=== PATIENT | male | born 1955 | race Asian ===

== ENCOUNTER 2016-08-03 12:12 | Inpatient (IN) | payer OTHER ==
[2016-08-03 12:24] VITALS: BMI 18.5
--- NOTE | 2016-08-03 12:36 | PDOC ---
History of Present Illness - General History Source: Patient Exam Limitations: No Limitations - History of Present Illness Initial Comments: 08/03/16 12:35 CHIEF COMPLAINT: Abdominal pain HISTORY OF PRESENT ILLNESS: This is a 61 year old male with a history of HTN, HLD, and NIDDM who presents complaining of one day of abdominal pain, distention , and constipation (he reports that he had a normal bowel movement on Wednesday) . He denies history of malignancy or abdominal surgeries. He has not had fevers/ chills, vomiting, dysuria, or any other symptoms. The patient denies regular EtOH use, but notes that he was drinking yesterday prior to onset of symptoms. PCP is Dr. Melani Guerrero V/s on arrival are notable for BP 183/93. REVIEW OF SYSTEMS: GENERAL/CONSTITUTIONAL: No fever or chills. No weakness. No weight change. HEAD, EYES, EARS, NOSE AND THROAT: No change in vision. No ear pain or discharge. No sore throat. CARDIOVASCULAR: No chest pain or palpitations. RESPIRATORY: No cough, wheezing, or shortness of breath. GASTROINTESTINAL: See HPI. GENITOURINARY: No dysuria, frequency, or change in urination. MUSCULOSKELETAL: No joint or muscle swelling or pain. No neck or back pain. SKIN: No rash or easy bruising. NEUROLOGIC: No headache, vertigo, loss of consciousness, or loss of sensation. PSYCHIATRIC: No depression or anxiety. ENDOCRINE: No increased thirst. No abnormal weight change. HEMATOLOGIC/LYMPHATIC: No anemia, easy bleeding, or history of blood clots. ALLERGIC/IMMUNOLOGIC: No hives or skin allergy. No latex allergy. PHYSICAL EXAM: GENERAL: The patient is awake, alert, and fully oriented, in no acute distress. HEAD: Normal with no signs of trauma. ENT: Pupils equal, round and reactive to light, extraocular movements intact, sclera anicteric, conjunctiva clear. Neck supple. LUNGS: Tachypneic. Clear to auscultation bilaterally. Normal excursion. No respiratory distress or use of accessory muscles. CV: RRR, S1/S2, no MRG. Cap refill < 2 sec. ABDOMEN: Distended, diffusely tender, hypoactive bowel sounds. EXTREMITIES: Normal range of motion, no edema. NEUROLOGICAL: Normal speech, normal gait. CN II-XII grossly intact. PSYCH: Normal mood, normal affect. SKIN: Warm, dry, normal turgor, mild jaundice. <Patricia Cordon - Last Filed: 08/03/16 18:54> <Zack Blackmon - Last Filed: 08/03/16 20:56> - General Chief Complaint: Pain Stated Complaint: ABD PAIN Time Seen by Provider: 08/03/16 12:34 Past History - Past Medical History Anemia: No Asthma: No Cancer: No Cardiac Disorders: Yes CVA: No COPD: Yes CHF: No Dementia: No Diabetes: Yes GI Disorders: No Disorders: No HTN: Yes Hypercholesterolemia: Yes Liver Disease: No Seizures: No Thyroid Disease: No - Surgical History Abdominal Surgery: No Appendectomy: No Cardiac Surgery: No Cholecystectomy: No Lung Surgery: No Neurologic Surgery: No Orthopedic Surgery: No - Immunization History Immunization Up to Date: Yes - Psycho/Social/Smoking Cessation Hx Anxiety: No Suicidal Ideation: No Smoking Status: No Smoking History: Current every day smoker Have you smoked in the past 12 months: Yes Number of Cigarettes Smoked Daily: 5 Information on smoking cessation initiated: Yes 'Breaking Loose' booklet given: 08/03/16 Hx Alcohol Use: No Drug/Substance Use Hx: No Substance Use Type: None Hx Substance Use Treatment: No <Patricia Cordon - Last Filed: 08/03/16 18:54> <Zack Blackmon - Last Filed: 08/03/16 20:56> - Past Medical History Allergies/Adverse Reactions: Allergies Allergy/AdvReac Type Severity Reaction Status Date / Time No Known Allergies Allergy Verified 08/03/16 12:20 Home Medications: Ambulatory Orders Simvastatin [Zocor -] 20 mg PO HS 01/18/12 Losartan/Hydrochlorothiazide [Losartan-Hctz 50-12.5 mg Tab] 1 each PO DAILY 02/10 Aspirin [ASA -] 81 mg PO DAILY #0 tab.chew 09/10/12 *Physical Exam - Vital Signs Last Vital Signs Temp Pulse Resp BP Pulse Ox 97.9 F 67 18 183/93 100 08/03/16 12:20 08/03/16 12:20 08/03/16 12:20 08/03/16 12:20 08/03/16 12:20 <Patricia Cordon - Last Filed: 08/03/16 18:54> - Vital Signs Last Vital Signs Temp Pulse Resp BP Pulse Ox 99.8 F H 84 18 148/83 96 08/03/16 18:03 08/03/16 18:03 08/03/16 18:03 08/03/16 18:03 08/03/16 18:03 <Zack Blackmon - Last Filed: 08/03/16 20:56> ED Treatment Course - LABORATORY CBC & Chemistry Diagram: 08/03/16 13:18 08/03/16 13:12 <Patricia Cordon - Last Filed: 08/03/16 18:54> - LABORATORY CBC & Chemistry Diagram: 08/03/16 13:18 08/03/16 13:12 - ADDITIONAL ORDERS Additional order review: Laboratory Results 08/03/16 08/03/16 16:20 13:12 Sodium 143 Potassium 3.9 Chloride 105 Carbon Dioxide 24 Anion Gap 14 BUN 17 Creatinine 0.7 Creat Clearance w eGFR > 60 Random Glucose 137 H D Calcium 9.5 Total Bilirubin 0.4 AST 24 D ALT 37 D Alkaline Phosphatase 56 Total Protein 7.9 Albumin 4.4 Lipase 99 Urine Color Yellow Urine Appearance Clear Urine pH 5.0 Urine Protein 2+ H Urine Glucose (UA) Negative Urine Ketones Trace H Urine Blood Negative Urine Nitrite Negative Urine Bilirubin Negative Urine Urobilinogen Negative Ur Leukocyte Esterase Negative Urine RBC 3 Urine WBC 1 Urine Mucus Rare 08/03/16 13:18 RBC 5.12 MCV 97.5 H MCHC 33.2 RDW 14.4 MPV 9.8 Neutrophils % 89.9 H D Lymphocytes % 7.0 L D Monocytes % 2.3 L Eosinophils % 0.2 D Basophils % 0.6 - Medications Given in the ED: ED Medications Discontinued Medications Generic Name Dose Route Start Last Admin Trade Name Jarrodq PRN Reason Stop Dose Admin Morphine Sulfate 4 mg 08/03/16 13:00 08/03/16 13:16 Morphine Injection - IVPUSH 08/03/16 13:01 4 mg ONCE ONE Administration Morphine Sulfate 4 mg 08/03/16 14:50 08/03/16 15:15 Morphine Injection - IVPUSH 08/03/16 14:51 4 mg ONCE ONE Administration Ondansetron HCl 4 mg 08/03/16 13:00 08/03/16 13:16 Zofran Injection IVPUSH 08/03/16 13:01 4 mg ONCE ONE Administration <Zack Blackmon - Last Filed: 08/03/16 20:56> Medical Decision Making - Medical Decision Making 08/03/16 13:03 A/P: 61 year old male with abdominal pain, distention, and constipation. 1. Abdominal labs 2. CXR and Abd flat/upright 3. Morphine 4mg IVP for pain and Zofran 4mg IVP for nausea 08/03/16 15:09 -WBC 16 with 89.9% neutrophils -Chemistry/LFTs unremarkable 08/03/16 16:45 -AXR: Nonobstructive bowel gas pattern; moderate fecal retention suggestive of constipation -Patient remains distended, complains of severe pain -Will obtain CTAP <Patricia Cordon - Last Filed: 08/03/16 18:54> - Medical Decision Making 08/03/16 20:[address] Greenwood- Would like Dr. Robles to chose surgeon. Start patient on Flagyl and Rocephin. Spoke with Dr. Robles for admission- Consult Surgery. Admit patient to Tele. IV Ativan due to Alcoholism. Spoke with Dr. Oleary (surgery). Keep patient NPO, IVF and IV Abx. <Zack Blackmon - Last Filed: 08/03/16 20:56> *DC/Admit/Observation/Transfer <Patricia Cordon - Last Filed: 08/03/16 18:54> - Discharge Dispostion Admit: Yes <Zack Blackmon - Last Filed: 08/03/16 20:56> Diagnosis at time of Disposition: Perforated bowel Alcohol dependence Qualifiers: Substance use status: uncomplicated Qualified Code(s): F10.20 - Alcohol dependence, uncomplicated - Discharge Dispostion Condition at time of disposition: Fair
[2016-08-03] MEDS ORDERED: ONDANSETRON 4 MG/2 ML VIAL IVPUSH ONE (13:00)
[2016-08-03] MEDS ORDERED: morphine CARPU-JECT 4 MG/1 ML DISP.SYRIN IVPUSH ONE ×2 (13:00→14:50)
[2016-08-03] MEDS ORDERED: ONDANSETRON 4 MG/2 ML VIAL ONE (13:03)
[2016-08-03] MEDS ORDERED: morphine CARPU-JECT 4 MG/1 ML DISP.SYRIN ONE ×2 (13:03→15:19)
[2016-08-03 13:21] LABS: BASOPHIL 0.6 % (0-2.0); EOSINOPHIL 0.2 % (0-4.5); MCH 32.4 pg (25.7-33.7); MCHC 33.2 g/dl (32.0-35.9); MEAN CELL VOLUME 97.5 fl (80-96); MEAN PLT VOLUME 9.8 fl (7.5-11.1); NEUTROPHILS 89.9 % (42.8-82.8); PLATELET COUNT 162 K/MM3 (134-434); RDW 14.4 % (11.9-15.9)
[2016-08-03 13:45] LABS: ALBUMIN 4.4 g/dl (3.4-5.0); ANION GAP 14 (8-16); CALCIUM 9.5 mg/dL (8.5-10.1); CO2 24 mmol/L (21-32); COCKROFT - GAULT 82; CREATININE 0.7 mg/dL (0.7-1.3); GLUCOSE,RANDOM 137 mg/dL (74-106); SGOT/AST 24 U/L (15-37); SGPT/ALT 37 U/L (12-78)
[2016-08-03 13:47] LABS: ALK PHOS 56 U/L (45-117); BILIRUBIN,TOTAL 0.4 mg/dL (0.2-1.0); TOT PROT 7.9 g/dl (6.4-8.2)
[2016-08-03 16:36] LABS: URINE APPEARANCE CLEAR; URINE BILIRUBIN NEGATIVE (NEGATIVE); URINE BLOOD NEGATIVE (NEGATIVE); URINE COLOR YELLOW; URINE GLUCOSE (UA) NEGATIVE (NEGATIVE); URINE KETONE TRACE (NEGATIVE); URINE LEUK ESTERASE NEGATIVE (NEGATIVE); URINE NITRITE NEGATIVE (NEGATIVE); URINE UROBILINOGEN NEGATIVE E.U./dl (0.2-1.0)
[2016-08-03 17:30] LABS: URINE PROTEIN 2+ (NEGATIVE)
[2016-08-03 17:34] LABS: URINE MUCUS RARE; URINE RBC 3 /hpf (0-3); URINE WBC 1 /hpf (3-5)
--- NOTE | 2016-08-03 19:39 | PDOC ---
*Physical Exam - Vital Signs Last Vital Signs Temp Pulse Resp BP Pulse Ox 99.8 F H 84 18 148/83 96 08/03/16 18:03 08/03/16 18:03 08/03/16 18:03 08/03/16 18:03 08/03/16 18:03 ED Treatment Course - LABORATORY CBC & Chemistry Diagram: 08/07/16 05:00 08/07/16 05:00 - ADDITIONAL ORDERS Additional order review: Laboratory Results 08/03/16 08/03/16 16:20 13:12 Sodium 143 Potassium 3.9 Chloride 105 Carbon Dioxide 24 Anion Gap 14 BUN 17 Creatinine 0.7 Creat Clearance w eGFR > 60 Random Glucose 137 H D Calcium 9.5 Total Bilirubin 0.4 AST 24 D ALT 37 D Alkaline Phosphatase 56 Total Protein 7.9 Albumin 4.4 Lipase 99 Urine Color Yellow Urine Appearance Clear Urine pH 5.0 Urine Protein 2+ H Urine Glucose (UA) Negative Urine Ketones Trace H Urine Blood Negative Urine Nitrite Negative Urine Bilirubin Negative Urine Urobilinogen Negative Ur Leukocyte Esterase Negative Urine RBC 3 Urine WBC 1 Urine Mucus Rare 08/03/16 13:18 RBC 5.12 MCV 97.5 H MCHC 33.2 RDW 14.4 MPV 9.8 Neutrophils % 89.9 H D Lymphocytes % 7.0 L D Monocytes % 2.3 L Eosinophils % 0.2 D Basophils % 0.6 - Medications Given in the ED: ED Medications Discontinued Medications Generic Name Dose Route Start Last Admin Trade Name Freq PRN Reason Stop Dose Admin Morphine Sulfate 4 mg 08/03/16 13:00 08/03/16 13:16 Morphine Injection - IVPUSH 08/03/16 13:01 4 mg ONCE ONE Administration Morphine Sulfate 4 mg 08/03/16 14:50 08/03/16 15:15 Morphine Injection - IVPUSH 08/03/16 14:51 4 mg ONCE ONE Administration Ondansetron HCl 4 mg 08/03/16 13:00 08/03/16 13:16 Zofran Injection IVPUSH 08/03/16 13:01 4 mg ONCE ONE Administration Medical Decision Making - Medical Decision Making 08/03/16 19:39 Pt seen by the Advanced Practice Provider under my direct supervision Ancillary studies reviewed I agree with plan as outlined by the Advanced Practice Provider SAIEG Cordon *DC/Admit/Observation/Transfer Diagnosis at time of Disposition: Alcohol dependence, Perforated bowel - Discharge Dispostion Condition at time of disposition: Fair
[2016-08-03] MEDS ORDERED: METRONIDAZOLE 500 MG PREMIXED 100 ML IVPB ONE ×2 (20:34→21:03)
[2016-08-03] MEDS ORDERED: cefTRIAXone 2 GM/100 ML BAG (PRE-DOCKED) IVPB ONE (20:44)
[2016-08-03] MEDS ORDERED: CEFTRIAXONE 100 ML IVPB ONE (21:03)
--- NOTE | 2016-08-03 21:42 | CONSULT ---
Consult Consult Specialty:: Surgery Referred by:: Cesar Polo Reason for Consultation:: Acute diverticulitis with abscess and perforation. - History of Present Illness Chief Complaint: Abdominal pain x 1 day History of Present Illness: Abdominal pain since yesterday, after a bowel movement., on the left side of his abdomen. No nausea, no vomiting. - History Source History Provided By: Patient - Past Medical History Cardio/Vascular: Yes: HTN Endocrine: Yes: Diabetes Mellitus - Past Surgical History Past Surgical History: Yes: None - Alcohol/Substance Use Hx Alcohol Use: No - Smoking History Smoking history: Current every day smoker Have you smoked in the past 12 months: Yes Aproximately how many cigarettes per day: 5 Home Medications - Allergies Allergies/Adverse Reactions: Allergies Allergy/AdvReac Type Severity Reaction Status Date / Time No Known Allergies Allergy Verified 08/03/16 12:20 - Home Medications Home Medications: Ambulatory Orders Simvastatin [Zocor -] 20 mg PO HS 01/18/12 Losartan/Hydrochlorothiazide [Losartan-Hctz 50-12.5 mg Tab] 1 each PO DAILY 02/10 Aspirin [ASA -] 81 mg PO DAILY #0 tab.chew 09/10/12 Physical Exam Vital Signs: Vital Signs Temperature 99.8 F H 08/03/16 18:03 Pulse Rate 84 08/03/16 18:03 Respiratory Rate 18 08/03/16 18:03 Blood Pressure 148/83 08/03/16 18:03 O2 Sat by Pulse Oximetry (%) 96 08/03/16 18:03 Gastrointestinal: Yes: Tenderness (Tender in left upper quadrant of abdomen, with local guarding) Labs: CBC, BMP 08/03/16 13:18 08/03/16 13:12 Imaging - Results Cat Scan: Report Reviewed, Image Reviewed Problem List - Problems (1) Diverticulitis of intestine with perforation and abscess Code(s): K57.80 - DVTRCLI OF INTEST, PART UNSP, W PERF AND ABSCESS W/O BLEED Qualifiers: Diverticulitis site: large intestine Diverticulitis bleeding: without bleeding Qualified Code(s): K57.20 - Diverticulitis of large intestine with perforation and abscess without bleeding (2) Diabetes 1.5, managed as type 2 Code(s): E10.9 - TYPE 1 DIABETES MELLITUS WITHOUT COMPLICATIONS (3) Hypertension Code(s): I10 - ESSENTIAL (PRIMARY) HYPERTENSION Assessment/Plan Acute diverticulitis with abscess and microperforation. Hypertension. Antibiotics, NPO, Hydrate , IV fluids. Follow up . If no response will need laparotomy and possible bowel resection with colostomy. Patient is explained.
[2016-08-03] MEDS ORDERED: DEXTROSE 5%-LACTATED RINGERS 1,000 ML IV SCH (21:45)
[2016-08-03] MEDS ORDERED: LORAZEPAM CARPU-JECT 2 MG/ML DISP.SYRIN IVPUSH PRN (21:48)
[2016-08-03] MEDS ORDERED: morphine CARPU-JECT 2 MG/1 ML DISP.SYRIN ONE (22:09)
[2016-08-03] MEDS: morphine CARPU-JECT 2 MG/1 ML DISP.SYRIN IVPUSH PRN (22:23)
[2016-08-04] MEDS ORDERED: METRONIDAZOLE 500 MG PREMIXED 100 ML IVPB ONE (08:12)
[2016-08-04] MEDS ORDERED: CEFTRIAXONE 1 GM in DEXTROSE 5%-WATER - 100 ML IVPB ONE (08:13)
[2016-08-04] MEDS ORDERED: morphine CARPU-JECT 2 MG/1 ML DISP.SYRIN ONE (08:20)
[2016-08-04] MEDS ORDERED: CEFTRIAXONE 50 ML ONE (08:20)
[2016-08-04] MEDS: morphine CARPU-JECT 2 MG/1 ML DISP.SYRIN IVPUSH PRN (08:30)
[2016-08-04 08:43] LABS: MCH 32.2 pg (25.7-33.7); MCHC 33.7 g/dl (32.0-35.9); MEAN CELL VOLUME 95.6 fl (80-96); MEAN PLT VOLUME 9.7 fl (7.5-11.1); PLATELET COUNT 150 K/MM3 (134-434); RDW 13.9 % (11.9-15.9); WHITE BLOOD COUNT 18.2 K/mm3 (4.0-10.0)
[2016-08-04 09:06] LABS: ALBUMIN 3.4 g/dl (3.4-5.0); ALK PHOS 44 U/L (45-117); ANION GAP 9 (8-16); CALCIUM 8.6 mg/dL (8.5-10.1); CO2 28 mmol/L (21-32); COCKROFT - GAULT 115; CREATININE 0.5 mg/dL (0.7-1.3); GLUCOSE,RANDOM 144 mg/dL (74-106); SGOT/AST 14 U/L (15-37); SGPT/ALT 24 U/L (12-78); TOT PROT 6.5 g/dl (6.4-8.2)
--- NOTE | 2016-08-04 09:50 | HP ---
Admitting History and Physical - Primary Care Physician PCP: Melani Guerrero - Admission Chief Complaint: abd pain History of Present Illness: ER HISTORY - History of Present Illness Initial Comments: 08/03/16 12:35 CHIEF COMPLAINT: Abdominal pain HISTORY OF PRESENT ILLNESS: This is a 61 year old male with a history of HTN, HLD, and NIDDM who presents complaining of one day of abdominal pain, distention , and constipation (he reports that he had a normal bowel movement on Wednesday) . He denies history of malignancy or abdominal surgeries. He has not had fevers/ chills, vomiting, dysuria, or any other symptoms. The patient denies regular EtOH use, but notes that he was drinking yesterday prior to onset of symptoms. PCP is Dr. Melani Guerrero V/s on arrival are notable for BP 183/93. Pt examined by me in ER Pt is NOT an alcoholic- he drank a glass of liquor on Wednesday evening watching a basketball game, felt sudden abdominal pain Wednesday morning when he was having a BM. He has a very small amount of stool- no bm after that. He c/o severe abdominal pain around lower abdomen. Nauseous. No fever. Never had similar pain before. Colonoscopy was many years ago - was going to get one scheduled in August with Dr Greenwood. History Source: Patient Limitations to Obtaining History: No Limitations - Past Medical History Cardiovascular: Yes: HTN, Hyperlipdemia - Smoking History Smoking history: Current every day smoker Have you smoked in the past 12 months: Yes Aproximately how many cigarettes per day: 5 - Alcohol/Substance Use Hx Alcohol Use: No - Social History Usual Living Arrangement: Yes: With Spouse ADL: Independent History of Recent Travel: No Home Medications - Allergies Allergies/Adverse Reactions: Allergies Allergy/AdvReac Type Severity Reaction Status Date / Time No Known Allergies Allergy Verified 08/03/16 12:20 - Home Medications Home Medications: Ambulatory Orders Simvastatin [Zocor -] 20 mg PO HS 01/18/12 Losartan/Hydrochlorothiazide [Losartan-Hctz 50-12.5 mg Tab] 1 each PO DAILY 02/10 Aspirin [ASA -] 81 mg PO DAILY #0 tab.chew 09/10/12 Review of Systems - Review of Systems Constitutional: denies: Chills, Fever Gastrointestinal: reports: Abdominal Pain, Constipation, Nausea. denies: Diarrhea, Vomiting, Vomiting Blood Physical Examination Vital Signs: Vital Signs Temperature 98.6 F 08/04/16 08:00 Pulse Rate 81 08/04/16 08:06 Respiratory Rate 18 08/04/16 08:06 Blood Pressure 113/50 08/04/16 08:06 O2 Sat by Pulse Oximetry (%) 97 08/04/16 08:06 Constitutional: Yes: Moderate Distress Cardiovascular: Yes: Regular Rate and Rhythm Respiratory: Yes: CTA Bilaterally Gastrointestinal: Yes: Distention, Tenderness (left quadrant), Other (guarding) . No: Normal Bowel Sounds, Soft Edema: No ...Motor Strength: WNL Psychiatric: Yes: Alert, Oriented Labs: CBC, BMP 08/04/16 08:20 08/04/16 08:20 Imaging - Results Chest X-ray: Image Reviewed (clear) Cat Scan: Report Reviewed EKG: Pending Problem List - Problems (1) Diverticulitis of intestine with perforation and abscess Code(s): K57.80 - DVTRCLI OF INTEST, PART UNSP, W PERF AND ABSCESS W/O BLEED Qualifiers: Diverticulitis site: large intestine Diverticulitis bleeding: without bleeding Qualified Code(s): K57.20 - Diverticulitis of large intestine with perforation and abscess without bleeding (2) Hypertension Code(s): I10 - ESSENTIAL (PRIMARY) HYPERTENSION (3) Smoker Code(s): F17.200 - NICOTINE DEPENDENCE, UNSPECIFIED, UNCOMPLICATED Assessment/Plan PLAN Keep NPO Repeat FUA Check EKG IV fluids IV antibiotics spoke with DR Oleary- surgeon will treat with antibiotics pain control, give increased dose of Morphine Hold off surgery for now ID eval with regards to antibiotics DVT prophylaxis-- Heparin sc GI prophylaxes-- Protonix Spoke with nurse in ER Time spent 30 min
[2016-08-04] MEDS ORDERED: ONDANSETRON 4 MG/2 ML VIAL IVPB PRN (10:06)
[2016-08-04] MEDS ORDERED: morphine CARPU-JECT 4 MG/1 ML DISP.SYRIN IVPUSH PRN (10:06)
[2016-08-04] MEDS ORDERED: IMIPENEM/CILASTATIN SODIUM 500 MG in SODIUM CHLORIDE 100 ML IVPB SCH (10:15)
[2016-08-04] MEDS ORDERED: morphine CARPU-JECT 4 MG/1 ML DISP.SYRIN IVPUSH ONE (10:17)
[2016-08-04] MEDS ORDERED: PANTOPRAZOLE SODIUM 40 MG VIAL ONE (10:21)
[2016-08-04] MEDS: PANTOPRAZOLE SODIUM 100 ML IVPB SCH (10:28)
[2016-08-04] MEDS ORDERED: IMIPENEM/CILASTATIN SODIUM 500 MG in SODIUM CHLORIDE 100 ML IVPB ONE (10:30)
[2016-08-04] MEDS: D5-1/2NS+10 MEQ KCL - 1,000 ML IV SCH (10:51)
[2016-08-04] MEDS: HYDROmorphone HCL CARPU-JECT 1 MG/1 ML DISP.SYRIN IVPB PRN ×2 (11:26→17:42)
--- NOTE | 2016-08-04 13:44 | PN ---
Progress Note (short form) - Note Progress Note: ID consult dictated imp/reccd diverticulitis with microperforation/possible abscess will treat with zosyn and flagyl no history of resistant organisms f/u cultures f/u with surgery d/w PMD Problem List - Problems (1) Diverticulitis of intestine with perforation and abscess Code(s): K57.80 - DVTRCLI OF INTEST, PART UNSP, W PERF AND ABSCESS W/O BLEED Qualifiers: Diverticulitis site: large intestine Diverticulitis bleeding: without bleeding Qualified Code(s): K57.20 - Diverticulitis of large intestine with perforation and abscess without bleeding
--- NOTE | 2016-08-04 15:34 | CON.GI ---
Consult Consult Specialty:: gastroenterology Reason for Consultation:: diverticular abscess - History of Present Illness History of Present Illness: 61 y/o with PMH of alcohol abuse was doing well until yesterday when he was awakenned by llq pain and constipation, no rectal bleeding and no fever, no nausea and vomiting. Today continue to have llq pain - Past Medical History Cardio/Vascular: Yes: HTN, Hyperlipdemia Endocrine: Yes: Diabetes Mellitus - Past Surgical History Past Surgical History: Yes: None - Alcohol/Substance Use Hx Alcohol Use: No - Smoking History Smoking history: Current every day smoker Have you smoked in the past 12 months: Yes Aproximately how many cigarettes per day: 5 - Social History ADL: Independent History of Recent Travel: No Home Medications - Allergies Allergies/Adverse Reactions: Allergies Allergy/AdvReac Type Severity Reaction Status Date / Time No Known Allergies Allergy Verified 08/03/16 12:20 - Home Medications Home Medications: Ambulatory Orders Simvastatin [Zocor -] 20 mg PO HS 01/18/12 Losartan/Hydrochlorothiazide [Losartan-Hctz 50-12.5 mg Tab] 1 each PO DAILY 02/10 Aspirin [ASA -] 81 mg PO DAILY #0 tab.chew 09/10/12 Physical Exam-GI Vital Signs: Vital Signs Temperature 98.3 F 08/04/16 11:20 Pulse Rate 95 H 08/04/16 13:16 Respiratory Rate 17 08/04/16 13:16 Blood Pressure 156/74 08/04/16 13:16 O2 Sat by Pulse Oximetry (%) 95 08/04/16 13:16 Constitutional: Yes: Well Nourished, Poor Hygeine HENT: Yes: Atraumatic Neck: Yes: Supple Cardiovascular: Yes: Regular Rate and Rhythm Respiratory: Yes: CTA Bilaterally ...Palpate: Yes: Soft, Tenderness (--LLq). No: Firm/Rigid, Guarding, Hepatomegaly, Mass Labs: CBC, BMP 08/04/16 08:20 08/04/16 08:20 CMP Sodium 139 mmol/L (136-145) 08/04/16 08:20 Potassium 3.8 mmol/L (3.5-5.1) 08/04/16 08:20 Chloride 102 mmol/L (98-107) 08/04/16 08:20 Carbon Dioxide 28 mmol/L (21-32) 08/04/16 08:20 Anion Gap 9 (8-16) 08/04/16 08:20 BUN 11 mg/dL (7-18) D 08/04/16 08:20 Creatinine 0.5 mg/dL (0.7-1.3) L D 08/04/16 08:20 Creat Clearance w eGFR > 60 (>60) 08/04/16 08:20 Random Glucose 144 mg/dL (74-106) H 08/04/16 08:20 Calcium 8.6 mg/dL (8.5-10.1) 08/04/16 08:20 Total Bilirubin 1.0 mg/dL (0.2-1.0) D 08/04/16 08:20 AST 14 U/L (15-37) L D 08/04/16 08:20 ALT 24 U/L (12-78) D 08/04/16 08:20 Alkaline Phosphatase 44 U/L (45-117) L D 08/04/16 08:20 Total Protein 6.5 g/dl (6.4-8.2) 08/04/16 08:20 Albumin 3.4 g/dl (3.4-5.0) D 08/04/16 08:20 Lipase 99 U/L (73-393) 08/03/16 13:12 Problem List - Problems (1) Diverticulitis of intestine with perforation and abscess Assessment/Plan: R> interventional radiology consult with Dr Min IV hydration IV antibiotics Code(s): K57.80 - DVTRCLI OF INTEST, PART UNSP, W PERF AND ABSCESS W/O BLEED Qualifiers: Diverticulitis site: large intestine Diverticulitis bleeding: without bleeding Qualified Code(s): K57.20 - Diverticulitis of large intestine with perforation and abscess without bleeding
[2016-08-04] MEDS ORDERED: HYDROmorphone HCL CARPU-JECT 1 MG/1 ML DISP.SYRIN ONE (17:36)
--- NOTE | 2016-08-04 18:46 | CONS ---
DATE OF CONSULTATION: 08/04/2016 REQUESTING PHYSICIAN: Melani Guerrero MD HISTORY: This is a 61-year-old man with a history of hypertension. He is an active smoker who presented yesterday to the emergency room with complaints of 1 day of abdominal pain and constipation. This had started Wednesday morning and presented later that day to the emergency room. He was found to have acute diverticulitis with microperforation and possible abscess. He has been started on a variety of antibiotics including ceftriaxone, Flagyl, and imipenem. I am asked to see him for antibiotic recommendation. He reports that he was feeling well until this occurred acutely on Wednesday morning. He had been watching some basketball on Wednesday and had several drinks with his friends. He socially likes to drink alcohol. He denies any nausea or vomiting. He reports having had a normal bowel movement on the weekend. He reports having had a colonoscopy with Dr. Greenwood in the past and tells me it was normal. He has never had any abdominal surgery. PAST MEDICAL HISTORY: Notable for hypertension, hyperlipidemia, noninsulin- dependent diabetes. SURGICAL HISTORY: He has never had any surgery before. ALLERGIES: He has no known drug allergies. MEDICATIONS: He takes simvastatin, losartan, hydrochlorothiazide, and aspirin as an outpatient. FAMILY HISTORY: Noncontributory. SOCIAL HISTORY: Lives at home. He smokes 4 cigarettes a day. Social whiskey use. 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 He does not make it. REVIEW OF SYSTEMS: He has had no weight loss. He had normal bowel movements until Wednesday. There is no history of any travel or sick contacts. PHYSICAL EXAMINATION: Vital signs: Temperature 98.3. He has had no fevers or chills. Temperature max is 99.8. Pulse is 95, blood pressure 156/74, respiratory rate 17. He is saturating 95% on room air. HEENT: He is normocephalic. Eyes are anicteric. Neck: Supple. Lungs: Clear to auscultation. Heart: Regular rate and rhythm. Abdomen: Firm. He reports he recently received some pain medicine; hence, his abdominal pain is markedly improved. Otherwise, he reports that he was having severe right lower quadrant pain. He has diminished bowel sounds on examination. He has tenderness to palpation to the left lower quadrant. Extremities: Without edema. LABORATORY: Notable for white count of 18.2, hemoglobin 14.7, platelets of 150 , BUN 11 and creatinine 0.5. LFTs are normal. Urinalysis had trace ketones, otherwise negative. Blood cultures are pending. CT scan is notable for acute diverticulitis with microperforation and possible abscess. Chest x-ray is negative for infiltrate. SUMMARY: This is a 61-year-old man with acute diverticulitis with microperforation, possible abscess. We will treat him with Zosyn and Flagyl at this time. There is no history of any prior resistant organisms. He has not had any recent hospitalizations. I would follow up the cultures and follow up with surgery. All of the above was discussed with his primary doctor. JUSTIN VILLASENOR M.D. [id number] MTDD
[2016-08-04] MEDS: METRONIDAZOLE 500 MG PREMIXED 100 ML IVPB SCH (18:47)
[2016-08-04] MEDS ORDERED: ACETAMINOPHEN 1000 MG/100 ML VIAL (NON FORMULARY) IVPB ONE (19:15)
[2016-08-04] MEDS: HEPARIN NA (PORCINE) 5,000 UNITS/ML 1ML VIAL SQ SCH (22:05)
[2016-08-05] MEDS: PIPERACILLIN/TAZOB 4.5 GM/100 ML PRE-DOCKED IVPB SCH ×4 (00:25→21:44)
[2016-08-05] MEDS: HYDROmorphone HCL CARPU-JECT 1 MG/1 ML DISP.SYRIN IVPB PRN (01:43)
[2016-08-05] MEDS: D5-1/2NS+10 MEQ KCL - 1,000 ML IV SCH ×2 (02:14→10:15)
[2016-08-05] MEDS: METRONIDAZOLE 500 MG PREMIXED 100 ML IVPB SCH ×3 (02:14→21:44)
[2016-08-05 07:42] LABS: BASOPHIL 0.3 % (0-2.0); EOSINOPHIL 0.1 % (0-4.5); MCH 32.2 pg (25.7-33.7); MCHC 33.5 g/dl (32.0-35.9); MEAN PLT VOLUME 9.8 fl (7.5-11.1); NEUTROPHILS 88.5 % (42.8-82.8); PLATELET COUNT 141 K/MM3 (134-434); RDW 13.9 % (11.9-15.9); WHITE BLOOD COUNT 11.4 K/mm3 (4.0-10.0)
[2016-08-05 08:03] LABS: ALBUMIN 3.3 g/dl (3.4-5.0); ANION GAP 9 (8-16); BILIRUBIN,TOTAL 1.1 mg/dL (0.2-1.0); CALCIUM 8.5 mg/dL (8.5-10.1); CO2 25 mmol/L (21-32); COCKROFT - GAULT 96; CREATININE 0.6 mg/dL (0.7-1.3); GLUCOSE,RANDOM 133 mg/dL (74-106); SGOT/AST 14 U/L (15-37); SGPT/ALT 22 U/L (12-78); TOT PROT 6.5 g/dl (6.4-8.2)
[2016-08-05 08:04] LABS: ALK PHOS 45 U/L (45-117)
[2016-08-05] MEDS ORDERED: ACETAMINOPHEN 1000 MG/100 ML VIAL (NON FORMULARY) IVPB PRN (09:18)
--- NOTE | 2016-08-05 09:19 | PN ---
Progress Note, Physician Chief Complaint: pt went for IR - Current Medication List Current Medications: Active Medications Heparin Sodium (Porcine) (Heparin -) 5,000 unit SQ BID MANNY Last Admin: 08/04/16 22:05 Dose: 5,000 unit Hydromorphone HCl (Dilaudid Injection -) 1 mg IVPB Q4H PRN PRN Reason: PAIN Last Admin: 08/05/16 01:43 Dose: 1 mg Pantoprazole Sodium (Protonix 40mg Ivpb (Pre-Docked)) 100 mls @ 200 mls/hr IVPB DAILY MANNY Last Admin: 08/04/16 10:28 Dose: 200 mls/hr Potassium Chloride/Dextrose/Sod Cl (D5-1/2ns+10 Meq Kcl -) 1,000 mls @ 83 mls/ hr IV ASDIR MANNY Last Admin: 08/05/16 02:14 Dose: 83 mls/hr Metronidazole (Flagyl 500mg Premixed Ivpb -) 100 mls @ 100 mls/hr IVPB Q8H-IV MANNY Last Admin: 08/05/16 02:14 Dose: 100 mls/hr Lorazepam (Ativan Injection -) 1 mg IVPUSH Q6H PRN PRN Reason: WITHDRAWAL(CONT SUBST) Ondansetron HCl (Zofran Injection) 4 mg IVPB Q6H PRN PRN Reason: NAUSEA Piperacillin Sod/Tazobactam Sod (Zosyn 4.5gm Ivpb (Pre-Docked)) 4.5 gm IVPB Q8H -IV MANNY Last Admin: 08/05/16 02:03 Dose: Not Given - Objective Vital Signs: Vital Signs Temperature 98.8 F 08/05/16 02:00 Pulse Rate 90 08/05/16 02:00 Respiratory Rate 20 08/05/16 02:00 Blood Pressure 127/62 08/05/16 02:00 O2 Sat by Pulse Oximetry (%) 99 08/04/16 23:04 Labs: CBC, BMP 08/05/16 06:52 08/05/16 06:52 Problem List - Problems (1) Diverticulitis of intestine with perforation and abscess Code(s): K57.80 - DVTRCLI OF INTEST, PART UNSP, W PERF AND ABSCESS W/O BLEED Qualifiers: Diverticulitis site: large intestine Diverticulitis bleeding: without bleeding Qualified Code(s): K57.20 - Diverticulitis of large intestine with perforation and abscess without bleeding (2) Hypertension Code(s): I10 - ESSENTIAL (PRIMARY) HYPERTENSION (3) Smoker Code(s): F17.200 - NICOTINE DEPENDENCE, UNSPECIFIED, UNCOMPLICATED
[2016-08-05] MEDS: HEPARIN NA (PORCINE) 5,000 UNITS/ML 1ML VIAL SQ SCH (10:00)
--- NOTE | 2016-08-05 10:18 | PN ---
Progress Note (short form) - Note Progress Note: for percutaneous drainage today with IR reports less pain more comfortable +BM this am Vital Signs Period Temp Pulse Resp BP Sys/Najera Pulse Ox Last 24 Hr 98.0 F-101.4 F 70-95 14-24 127-156/62-78 94-99 cor-rrr lungs clear abd soft, decreased bs, tender to palpation bilateral lower quadrant ext no edema CBC, BMP 08/05/16 06:52 08/05/16 06:52 Microbiology 08/03/16 22:53 Blood - Peripheral Venous Blood Culture - Preliminary NO GROWTH OBTAINED AFTER 24 HOURS, INCUBATION TO CONTINUE FOR 4 DAYS. 08/03/16 22:55 Blood - Peripheral Venous Blood Culture - Preliminary NO GROWTH OBTAINED AFTER 24 HOURS, INCUBATION TO CONTINUE FOR 4 DAYS. a/p diverticulitis with microperforation and abscess for IR drainage today f/u cultures continue zosyn/flagyl hopefully deescalate antibiotics in am Problem List - Problems (1) Diverticulitis of intestine with perforation and abscess Code(s): K57.80 - DVTRCLI OF INTEST, PART UNSP, W PERF AND ABSCESS W/O BLEED Qualifiers: Diverticulitis site: large intestine Diverticulitis bleeding: without bleeding Qualified Code(s): K57.20 - Diverticulitis of large intestine with perforation and abscess without bleeding
--- NOTE | 2016-08-05 11:37 | PN ---
Progress Note, Physician Chief Complaint: pt came back from IR had 2 bm today-- watery Feels thirsty pain improved - Current Medication List Current Medications: Active Medications Acetaminophen (Ofirmev Injection -) 1,000 mg IVPB Q6H PRN PRN Reason: FEVER OR PAIN Stop: 08/06/16 03:19 Heparin Sodium (Porcine) (Heparin -) 5,000 unit SQ BID MANNY Last Admin: 08/04/16 22:05 Dose: 5,000 unit Hydromorphone HCl (Dilaudid Injection -) 1 mg IVPB Q4H PRN PRN Reason: PAIN Last Admin: 08/05/16 01:43 Dose: 1 mg Pantoprazole Sodium (Protonix 40mg Ivpb (Pre-Docked)) 100 mls @ 200 mls/hr IVPB DAILY MANNY Last Admin: 08/04/16 10:28 Dose: 200 mls/hr Potassium Chloride/Dextrose/Sod Cl (D5-1/2ns+10 Meq Kcl -) 1,000 mls @ 83 mls/ hr IV ASDIR MANNY Last Admin: 08/05/16 02:14 Dose: 83 mls/hr Metronidazole (Flagyl 500mg Premixed Ivpb -) 100 mls @ 100 mls/hr IVPB Q8H-IV MANNY Last Admin: 08/05/16 02:14 Dose: 100 mls/hr Lorazepam (Ativan Injection -) 1 mg IVPUSH Q6H PRN PRN Reason: WITHDRAWAL(CONT SUBST) Ondansetron HCl (Zofran Injection) 4 mg IVPB Q6H PRN PRN Reason: NAUSEA Piperacillin Sod/Tazobactam Sod (Zosyn 4.5gm Ivpb (Pre-Docked)) 4.5 gm IVPB Q8H -IV MANNY Last Admin: 08/05/16 02:03 Dose: Not Given - Objective Vital Signs: Vital Signs Temperature 99.8 F H 08/05/16 09:00 Pulse Rate 88 08/05/16 11:17 Respiratory Rate 29 H 08/05/16 11:17 Blood Pressure 123/72 08/05/16 11:17 O2 Sat by Pulse Oximetry (%) 98 08/05/16 11:17 Constitutional: Yes: No Distress Cardiovascular: Yes: Regular Rate and Rhythm Respiratory: Yes: CTA Bilaterally Gastrointestinal: Yes: Soft, Hypoactive Bowel Sounds, Tenderness (decreased). No: Normal Bowel Sounds, Distention Edema: No Labs: CBC, BMP 08/05/16 06:52 08/05/16 06:52 Problem List - Problems (1) Diverticulitis of intestine with perforation and abscess Code(s): K57.80 - DVTRCLI OF INTEST, PART UNSP, W PERF AND ABSCESS W/O BLEED Qualifiers: Diverticulitis site: large intestine Diverticulitis bleeding: without bleeding Qualified Code(s): K57.20 - Diverticulitis of large intestine with perforation and abscess without bleeding (2) Hypertension Code(s): I10 - ESSENTIAL (PRIMARY) HYPERTENSION (3) Smoker Code(s): F17.200 - NICOTINE DEPENDENCE, UNSPECIFIED, UNCOMPLICATED Assessment/Plan PLAN Repeat FUA- pending IV fluids IV antibiotics ID and GI eval noted has drain fluid sent for culture pt has bm today, pain decreased, abdomen is soft DVT prophylaxis-- Heparin sc GI prophylaxes-- Protonix
[2016-08-05] MEDS: PANTOPRAZOLE SODIUM 100 ML IVPB SCH (15:32)
--- NOTE | 2016-08-05 15:34 | PN ---
Progress Note, Physician - Current Medication List Current Medications: Active Medications Acetaminophen (Ofirmev Injection -) 1,000 mg IVPB Q6H PRN PRN Reason: FEVER OR PAIN Stop: 08/06/16 03:19 Heparin Sodium (Porcine) (Heparin -) 5,000 unit SQ BID MANNY Last Admin: 08/05/16 10:00 Dose: Not Given Hydromorphone HCl (Dilaudid Injection -) 1 mg IVPB Q4H PRN PRN Reason: PAIN Last Admin: 08/05/16 01:43 Dose: 1 mg Pantoprazole Sodium (Protonix 40mg Ivpb (Pre-Docked)) 100 mls @ 200 mls/hr IVPB DAILY [facility] Last Admin: 08/04/16 10:28 Dose: 200 mls/hr Potassium Chloride/Dextrose/Sod Cl (D5-1/2ns+10 Meq Kcl -) 1,000 mls @ 83 mls/ hr IV ASDIR MANNY Last Admin: 08/05/16 10:15 Dose: Not Given Metronidazole (Flagyl 500mg Premixed Ivpb -) 100 mls @ 100 mls/hr IVPB Q8H-IV MANNY Last Admin: 08/05/16 14:09 Dose: 100 mls/hr Lorazepam (Ativan Injection -) 1 mg IVPUSH Q6H PRN PRN Reason: WITHDRAWAL(CONT SUBST) Ondansetron HCl (Zofran Injection) 4 mg IVPB Q6H PRN PRN Reason: NAUSEA Piperacillin Sod/Tazobactam Sod (Zosyn 4.5gm Ivpb (Pre-Docked)) 4.5 gm IVPB Q8H -IV MANNY Last Admin: 08/05/16 12:51 Dose: 4.5 gm - Objective Vital Signs: Vital Signs Temperature 99.1 F 08/05/16 11:50 Pulse Rate 86 08/05/16 11:50 Respiratory Rate 20 08/05/16 11:50 Blood Pressure 147/75 08/05/16 11:50 O2 Sat by Pulse Oximetry (%) 98 08/05/16 11:17 Labs: CBC, BMP 08/05/16 06:52 08/05/16 06:52 Problem List - Problems (1) Diverticulitis of intestine with perforation and abscess Code(s): K57.80 - DVTRCLI OF INTEST, PART UNSP, W PERF AND ABSCESS W/O BLEED Qualifiers: Diverticulitis site: large intestine Diverticulitis bleeding: without bleeding Qualified Code(s): K57.20 - Diverticulitis of large intestine with perforation and abscess without bleeding (2) Diabetes 1.5, managed as type 2 Code(s): E10.9 - TYPE 1 DIABETES MELLITUS WITHOUT COMPLICATIONS (3) Hypertension Code(s): I10 - ESSENTIAL (PRIMARY) HYPERTENSION Assessment/Plan Surgery: Patient has noel stool coming out of the drainage catheter. CT scan ws reviewed with Dr. Villanueva, he has a large perforation of the colon. Will need a Arias procedure. I have explained to the patient and his , a nurse, explained the large perforation and need for diversion , colostomy , and Praveen procedure. Consent obtained, Risks, benefits and complications explained. Or called.
[2016-08-05] MEDS ORDERED: PROPOFOL 20 ML ONE (15:48)
[2016-08-05] MEDS ORDERED: ROCURONIUM BROMIDE 50 MG/5 ML VIAL ONE ×2 (16:22→17:04)
[2016-08-05] MEDS ORDERED: LIDOCAINE HCL 2% (20ML MULTI-DOSE VIAL) NR ONE (16:23)
[2016-08-05] MEDS ORDERED: ceFAZolin SODIUM 1 GM VIAL IVPB ONE (16:34)
[2016-08-05] MEDS ORDERED: ACETAMINOPHEN INJECTION 100 ML IVPB ONE (17:23)
[2016-08-05] MEDS ORDERED: HYDROmorphone HCL/PF 1 MG/ML VIAL (FOR PYXIS CHARGING ONLY) ONE (17:46)
[2016-08-05] MEDS ORDERED: SODIUM CHLORIDE 0.9% P/F 10 ML VIAL IJ ONE (17:46)
[2016-08-05] MEDS ORDERED: NEOSTIGMINE METHYLSULFATE 0.5 MG/ML - 10 ML MDV ONE (18:08)
[2016-08-05] MEDS ORDERED: GLYCOPYRROLATE 0.2 MG/1 ML VIAL ONE (18:11)
--- NOTE | 2016-08-05 18:44 | OP ---
- Note: [place] Operative Note: Asked by Dr Oleary for assistance intraop with an emergency operative procedure for a colon perforation. Date of surgery: 08/05/2016 Operative procedure: Exploratory laparotomy, partial colectomy, splenic flexure mobilization, chase 's procedure, descending colostomy, peritoneal washout, omentectomy Findings: Perforated sigmoid colon Please refer to Dr Oleary's operative note for further details
--- NOTE | 2016-08-05 18:56 | OP ---
Operative Note - Note: Operative Date: 08/05/16 Pre-Operative Diagnosis: Acute diverticulitis with perforation , and gangrene of sigmoid colon, with intraabdominal abscess, and fecal peritonitis. Operation: Exploratory laparotomy, sigmoid resection, descending colostomy, ( Arias procedure),. Mobilisation of splenic flexure of colon,. omentectomy,. peritoneal wash out. Findings: Gangrenous sigmoid colon , with perforation , and fecal peritonitis, with acute diverticulitis. Intraabdominal abscess. Post-Operative Diagnosis: Same as Pre-op Surgeon: Ellen Oleary Ironworker Wire Fence Erector: Antonino Velarde Anesthesia: General Specimens Removed: Sigmoid colon. Estimated Blood Loss (mls): 250 Fluid Volume Replaced (mls): 3 Operative Report Dictated: Yes
[2016-08-05] MEDS ORDERED: PROMETHAZINE HCL 25 MG/1 ML VIAL IVPB PRN (19:03)
[2016-08-05] MEDS ORDERED: ONDANSETRON 4 MG/2 ML VIAL IVPUSH PRN ×2 (19:03)
[2016-08-05] MEDS ORDERED: ONDANSETRON 4 MG/2 ML VIAL IVPB PRN (19:15)
[2016-08-05] MEDS ORDERED: LACTATED RINGERS SOLUTION 1,000 ML IV SCH (19:15)
[2016-08-05] MEDS ORDERED: LORAZEPAM CARPU-JECT 2 MG/ML DISP.SYRIN IVPUSH PRN (19:15)
[2016-08-05] MEDS ORDERED: HYDROmorphone HCL CARPU-JECT 1 MG/1 ML DISP.SYRIN IVPB PRN (19:15)
[2016-08-05] MEDS ORDERED: HYDROmorphone *PCA* 10MG/50ML DISP.SYRIN PCA ONE (19:31)
[2016-08-05 19:45] LABS: MCH 31.4 pg (25.7-33.7); MCHC 32.5 g/dl (32.0-35.9); MEAN CELL VOLUME 96.7 fl (80-96); PLATELET COUNT 149 K/MM3 (134-434); RDW 13.8 % (11.9-15.9); WHITE BLOOD COUNT 6.8 K/mm3 (4.0-10.0)
[2016-08-05] MEDS: DEXTROSE 5%-LACTATED RINGERS 1,000 ML IV SCH (20:00)
[2016-08-05] MEDS: HYDROmorphone *PCA* 10MG/50ML DISP.SYRIN PCA SCH (20:00)
[2016-08-05] MEDS ORDERED: LABETALOL HCL 5 MG/1 ML (100MG/20 ML VIAL) ONE (20:09)
[2016-08-05 20:12] LABS: CALCIUM 7.2 mg/dL (8.5-10.1); CREATININE 0.5 mg/dL (0.7-1.3)
[2016-08-05] MEDS ORDERED: LABETALOL HCL 5 MG/1 ML (100MG/20 ML VIAL) IVPUSH ONE (20:18)
[2016-08-05] MEDS: ACETAMINOPHEN 1000 MG/100 ML VIAL (NON FORMULARY) IVPB PRN (21:30)
--- NOTE | 2016-08-05 21:42 | CONSULT ---
Consult Consult Specialty:: Pulmonary/ Critical Care Referred by:: Melani Conner Reason for Consultation:: post-op monitoring s/p ex-lap, partial colectomy, splenic flexure mobilization, hartmans procedure, descending colostomy, peritoneal washout and omentectomy - History of Present Illness Chief Complaint: abdominal pain now s/p ex lap, partial colectomy, splenic flexure mobilization, hartmans procedure, descending colostomy, peritoneal washout and omentectomy History of Present Illness: 61 year old man with history of HTN, HLD, NIDDM and ETOH abuse per some notes who presented on 08/04 with LLQ abdominal pain, distention and constipation. He denied fever, nausea, vomiting, dysuria, rectal bleeding. Labs in the ED notable for WBC 18. CT A/P revealed thickening of proximal sigmoid colon wall with stranding of surrounding fat and extraluminal air consistent with colitis/ diverticulitis with microperforations and suggestion of an abscess. He was started on abx (ceftriaxone, flagyl and imipenem later changed to zosyn and flagyl) and GI, surgery and ID were consulted. On the morning of 08/05 pt went to IR for abscess drainage followed by OR for exploratory laparatomy, partial colectomy, splenic flexure mobilization, hartmans procedure, descending colostomy, peritoneal washout and omentectomy. He was extubated post-op and transferred to the ICU for further management. Active Medications Acetaminophen (Ofirmev Injection -) 1,000 mg IVPB Q6H PRN PRN Reason: FEVER OR PAIN Stop: 08/06/16 03:19 Diphenhydramine HCl (Benadryl Injection -) 12.5 mg IVPUSH ONCE PRN PRN Reason: FOR ITCHING Stop: 08/06/16 03:00 Hydromorphone HCl (Dilaudid Mat Weaver -) 10 mg FINANCIAL SERVICES AGENT FINANCIAL SERVICES AGENT MANNY PRN Reason: Protocol Stop: 08/12/16 19:04 Last Admin: 08/05/16 20:00 Dose: 10 mg Hydromorphone HCl (Dilaudid Injection -) 1 mg IVPB Q4H PRN PRN Reason: PAIN Dextrose/Lactated Ringer's (D5-Lr -) 1,000 mls @ 150 mls/hr IV ASDIR MANNY Last Admin: 08/05/16 20:00 Dose: 200 mls Metronidazole (Flagyl 500mg Premixed Ivpb -) 100 mls @ 100 mls/hr IVPB Q8H-IV MANNY Pantoprazole Sodium (Protonix 40mg Ivpb (Pre-Docked)) 100 mls @ 200 mls/hr IVPB DAILY MANNY Lorazepam (Ativan Injection -) 1 mg IVPUSH Q6H PRN PRN Reason: WITHDRAWAL(CONT SUBST) Ondansetron HCl (Zofran Injection) 4 mg IVPUSH Q6H PRN PRN Reason: NAUSEA AND/OR VOMITING Stop: 08/06/16 01:04 Ondansetron HCl (Zofran Injection) 4 mg IVPUSH Q4H PRN PRN Reason: NAUSEA AND/OR VOMITING Stop: 08/06/16 07:04 Ondansetron HCl (Zofran Injection) 4 mg IVPB Q6H PRN PRN Reason: NAUSEA Piperacillin Sod/Tazobactam Sod (Zosyn 4.5gm Ivpb (Pre-Docked)) 4.5 gm IVPB Q8H -IV MANNY Promethazine HCl (Phenergan Injection -) 12.5 mg IVPB Q6H PRN PRN Reason: NAUSEA AND/OR VOMITING - History Source History Provided By: Patient, Medical Record Limitations to Obtaining History: No Limitations - Past Medical History Cardio/Vascular: Yes: HTN, Hyperlipdemia Endocrine: Yes: Diabetes Mellitus - Past Surgical History Past Surgical History: Yes: None - Alcohol/Substance Use Hx Alcohol Use: Yes - Smoking History Smoking history: Current every day smoker Have you smoked in the past 12 months: Yes Aproximately how many cigarettes per day: 4 - Social History ADL: Independent History of Recent Travel: No Home Medications - Allergies Allergies/Adverse Reactions: Allergies Allergy/AdvReac Type Severity Reaction Status Date / Time No Known Allergies Allergy Verified 08/03/16 12:20 - Home Medications Home Medications: Ambulatory Orders Simvastatin [Zocor -] 20 mg PO HS 01/18/12 Losartan/Hydrochlorothiazide [Losartan-Hctz 50-12.5 mg Tab] 1 each PO DAILY 02/10 Aspirin [ASA -] 81 mg PO DAILY #0 tab.chew 09/10/12 Review of Systems - Review of Systems Constitutional: denies: Fever Gastrointestinal: reports: Abdominal Pain, Constipation. denies: Diarrhea, Rectal Bleeding, Vomiting Physical Exam Vital Signs: Vital Signs Temperature 98.2 F 08/05/16 21:00 Pulse Rate 80 08/05/16 21:00 Respiratory Rate 16 08/05/16 21:00 Blood Pressure 118/70 08/05/16 21:00 O2 Sat by Pulse Oximetry (%) 98 08/05/16 11:17 Constitutional: Yes: Well Nourished Eyes: Yes: Conjunctiva Clear, PERRL HENT: Yes: Atraumatic Cardiovascular: Yes: Regular Rate and Rhythm, S1, S2. No: Gallop, Murmur, Rub Respiratory: Yes: CTA Bilaterally. No: Accessory Muscle Use Gastrointestinal: Yes: Hypoactive Bowel Sounds, Tenderness Extremities: Yes: WNL Edema: No Peripheral Pulses WNL: Yes Integumentary: Yes: WNL Wound/Incision: Yes: Other (dressing c/d/i, ostomy appears clean with drainage canula draining sero-sanguinous fluid) Neurological: Yes: WNL, Alert, Cran Nerves II-XII Intact ...Motor Strength: WNL Labs: CBC, BMP 08/05/16 19:00 08/05/16 19:00 Imaging - Results Chest X-ray: Report Reviewed X-ray: Report Reviewed Cat Scan: Report Reviewed Problem List - Problems (1) Alcohol dependence Code(s): F10.20 - ALCOHOL DEPENDENCE, UNCOMPLICATED Qualifiers: Substance use status: uncomplicated Qualified Code(s): F10.20 - Alcohol dependence, uncomplicated (2) Diabetes 1.5, managed as type 2 Code(s): E10.9 - TYPE 1 DIABETES MELLITUS WITHOUT COMPLICATIONS (3) Diverticulitis of intestine with perforation and abscess Code(s): K57.80 - DVTRCLI OF INTEST, PART UNSP, W PERF AND ABSCESS W/O BLEED Qualifiers: Diverticulitis site: large intestine Diverticulitis bleeding: without bleeding Qualified Code(s): K57.20 - Diverticulitis of large intestine with perforation and abscess without bleeding (4) Hypertension Code(s): I10 - ESSENTIAL (PRIMARY) HYPERTENSION (5) Perforated bowel Code(s): K63.1 - PERFORATION OF INTESTINE (NONTRAUMATIC) (6) Smoker Code(s): F17.200 - NICOTINE DEPENDENCE, UNSPECIFIED, UNCOMPLICATED Assessment/Plan Assessment/Plan: 61 y/o man with HTN, HLD, NIDDM and (?) ETOH abuse who presented with abdominal pain and constipation, found to have acute diverticulitis with perforation and intra-abdominal abscess now s/p ex-lap, partial colectomy, splenic flexure mobilization, hartmans procedure, descending colostomy, peritoneal washout and omentectomy, admitted to ICU for monitoring post-op. -surgery following - post op wound care -GI following -ID following - continue zosyn, flagyl, monitor WBC/ sxs infection -pain control with FINANCIAL SERVICES AGENT -NPO -continuous IVF -follow FS - insulin as needed -monitor for sxs ETOH withdrawal given unclear ETOH history -hemodynamic monitoring - IV antihypertensives PRN -GI ppx -venodynes DVT ppx FULL CODE Jennifer WING CC Time: 35 mins
[2016-08-06] MEDS: METRONIDAZOLE 500 MG PREMIXED 100 ML IVPB SCH ×3 (01:10→17:52)
[2016-08-06] MEDS: PIPERACILLIN/TAZOB 4.5 GM/100 ML PRE-DOCKED IVPB SCH ×3 (03:05→17:32)
[2016-08-06] MEDS: ACETAMINOPHEN 1000 MG/100 ML VIAL (NON FORMULARY) IVPB PRN (03:05)
[2016-08-06] MEDS: DEXTROSE 5%-LACTATED RINGERS 1,000 ML IV SCH ×4 (03:45→17:52)
[2016-08-06 05:57] LABS: BASOPHIL 0.3 % (0-2.0); EOSINOPHIL 0.2 % (0-4.5); MEAN CELL VOLUME 96.9 fl (80-96); MEAN PLT VOLUME 10.9 fl (7.5-11.1); NEUTROPHILS 84.3 % (42.8-82.8); PLATELET COUNT 162 K/MM3 (134-434); RDW 13.8 % (11.9-15.9); WHITE BLOOD COUNT 5.3 K/mm3 (4.0-10.0)
[2016-08-06 06:23] LABS: ALBUMIN 2.1 g/dl (3.4-5.0); ANION GAP 8 (8-16); BILIRUBIN,TOTAL 1.5 mg/dL (0.2-1.0); CALCIUM 7.2 mg/dL (8.5-10.1); CO2 25 mmol/L (21-32); COCKROFT - GAULT 115; CREATININE 0.5 mg/dL (0.7-1.3); GLUCOSE,RANDOM 192 mg/dL (74-106); SGOT/AST 27 U/L (15-37); SGPT/ALT 20 U/L (12-78); TOT PROT 4.6 g/dl (6.4-8.2)
[2016-08-06 06:24] LABS: ALK PHOS 31 U/L (45-117)
--- NOTE | 2016-08-06 07:01 | PN ---
Progress Note, Physician Chief Complaint: ID Post op day 1 Arias procedure Awake Alert NAD Surgical findings gangrene of colon perforation fecal peritonitis. Complains of post op pain - Current Medication List Current Medications: Active Medications Hydromorphone HCl (Dilaudid Drainage Engineer -) 10 mg ROCKET SCIENTIST ROCKET SCIENTIST MANNY PRN Reason: Protocol Stop: 08/12/16 19:04 Last Admin: 08/05/16 20:00 Dose: 10 mg Hydromorphone HCl (Dilaudid Injection -) 1 mg IVPB Q4H PRN PRN Reason: PAIN Dextrose/Lactated Ringer's (D5-Lr -) 1,000 mls @ 150 mls/hr IV ASDIR MANNY Last Admin: 08/06/16 03:45 Dose: 150 mls/hr Metronidazole (Flagyl 500mg Premixed Ivpb -) 100 mls @ 100 mls/hr IVPB Q8H-IV MANNY Last Admin: 08/06/16 01:10 Dose: 100 mls/hr Pantoprazole Sodium (Protonix 40mg Ivpb (Pre-Docked)) 100 mls @ 200 mls/hr IVPB DAILY [facility] Lorazepam (Ativan Injection -) 1 mg IVPUSH Q6H PRN PRN Reason: WITHDRAWAL(CONT SUBST) Ondansetron HCl (Zofran Injection) 4 mg IVPUSH Q4H PRN PRN Reason: NAUSEA AND/OR VOMITING Stop: 08/06/16 07:04 Ondansetron HCl (Zofran Injection) 4 mg IVPB Q6H PRN PRN Reason: NAUSEA Piperacillin Sod/Tazobactam Sod (Zosyn 4.5gm Ivpb (Pre-Docked)) 4.5 gm IVPB Q8H -IV [facility] Last Admin: 08/06/16 03:05 Dose: 4.5 gm Promethazine HCl (Phenergan Injection -) 12.5 mg IVPB Q6H PRN PRN Reason: NAUSEA AND/OR VOMITING - Objective Vital Signs: Vital Signs Temperature 98.6 F 08/06/16 06:00 Pulse Rate 89 08/06/16 06:00 Respiratory Rate 21 08/06/16 06:00 Blood Pressure 127/71 08/06/16 06:00 O2 Sat by Pulse Oximetry (%) 93 L 08/05/16 22:11 Constitutional: Yes: Well Nourished, No Distress, Calm Eyes: Yes: WNL, Conjunctiva Clear HENT: Yes: WNL, Atraumatic Cardiovascular: Yes: Regular Rate and Rhythm, S1, S2. No: Murmur, Rub Respiratory: Yes: WNL, Regular, CTA Bilaterally. No: Rales, Rhonchi Gastrointestinal: Yes: Soft, Tenderness, Other (POst op colostomy) Extremities: No: Cold, Cool, Cyanosis Edema: No Integumentary: No: WNL, Rash Neurological: Yes: WNL, Alert, Oriented, Cran Nerves II-XII Intact Labs: CBC, BMP 08/06/16 05:10 08/06/16 05:10 Problem List - Problems (1) Perforated bowel Code(s): K63.1 - PERFORATION OF INTESTINE (NONTRAUMATIC) (2) Fecal peritonitis Code(s): K65.8 - OTHER PERITONITIS (3) Alcohol dependence Code(s): F10.20 - ALCOHOL DEPENDENCE, UNCOMPLICATED Qualifiers: Substance use status: uncomplicated Qualified Code(s): F10.20 - Alcohol dependence, uncomplicated (4) Diabetes 1.5, managed as type 2 Code(s): E10.9 - TYPE 1 DIABETES MELLITUS WITHOUT COMPLICATIONS Assessment/Plan Microbiology 08/05/16 11:49 Abscess Gram Stain - Final 08/03/16 22:55 Blood - Peripheral Venous Blood Culture - Preliminary NO GROWTH OBTAINED AFTER 48 HOURS, INCUBATION TO CONTINUE FOR 3 DAYS. 08/03/16 22:53 Blood - Peripheral Venous Blood Culture - Preliminary NO GROWTH OBTAINED AFTER 48 HOURS, INCUBATION TO CONTINUE FOR 3 DAYS. Laboratory Tests 08/06/16 08/06/16 05:10 05:10 WBC 5.3 Hgb 12.9 Plt Count 162 ALT 20 Assessment Gangrenous bowel ( diverticulitis) with perforation fecal peritonitis Day 1 post op Arias Diabetes HPTN Alcohol by history GI Dr Greenwood Fever secondary to above Plan Continue current therapy Zosyn metronidazole Operative cultures pending CRP Critical care time spent 35 minutes Harika DALTON
--- NOTE | 2016-08-06 09:17 | PN ---
Progress Note, Physician - Current Medication List Current Medications: Active Medications Hydromorphone HCl (Dilaudid Rn Recovery -) 10 mg HEATING ELEMENT REPAIRER HEATING ELEMENT REPAIRER MANNY PRN Reason: Protocol Stop: 08/12/16 19:04 Last Admin: 08/05/16 20:00 Dose: 10 mg Hydromorphone HCl (Dilaudid Injection -) 1 mg IVPB Q4H PRN PRN Reason: PAIN Dextrose/Lactated Ringer's (D5-Lr -) 1,000 mls @ 150 mls/hr IV ASDIR MANNY Last Admin: 08/06/16 03:45 Dose: 150 mls/hr Metronidazole (Flagyl 500mg Premixed Ivpb -) 100 mls @ 100 mls/hr IVPB Q8H-IV MANNY Last Admin: 08/06/16 01:10 Dose: 100 mls/hr Pantoprazole Sodium (Protonix 40mg Ivpb (Pre-Docked)) 100 mls @ 200 mls/hr IVPB DAILY MANNY Lorazepam (Ativan Injection -) 1 mg IVPUSH Q6H PRN PRN Reason: WITHDRAWAL(CONT SUBST) Ondansetron HCl (Zofran Injection) 4 mg IVPB Q6H PRN PRN Reason: NAUSEA Piperacillin Sod/Tazobactam Sod (Zosyn 4.5gm Ivpb (Pre-Docked)) 4.5 gm IVPB Q8H -IV MANNY Last Admin: 08/06/16 03:05 Dose: 4.5 gm Promethazine HCl (Phenergan Injection -) 12.5 mg IVPB Q6H PRN PRN Reason: NAUSEA AND/OR VOMITING - Objective Vital Signs: Vital Signs Temperature 98.6 F 08/06/16 06:00 Pulse Rate 89 08/06/16 06:00 Respiratory Rate 21 08/06/16 06:00 Blood Pressure 127/71 08/06/16 06:00 O2 Sat by Pulse Oximetry (%) 94 L 08/06/16 07:31 Labs: CBC, BMP 08/06/16 05:10 08/06/16 05:10 Problem List - Problems (1) Diverticulitis of intestine with perforation and abscess Code(s): K57.80 - DVTRCLI OF INTEST, PART UNSP, W PERF AND ABSCESS W/O BLEED Qualifiers: Diverticulitis site: large intestine Diverticulitis bleeding: without bleeding Qualified Code(s): K57.20 - Diverticulitis of large intestine with perforation and abscess without bleeding (2) Diabetes 1.5, managed as type 2 Code(s): E10.9 - TYPE 1 DIABETES MELLITUS WITHOUT COMPLICATIONS (3) Hypertension Code(s): I10 - ESSENTIAL (PRIMARY) HYPERTENSION Assessment/Plan Surgery: Patient is awake, alert. He is informed of operative findings. WBC is normal. Dressing changed, wound packed with iodoform packing. Intake output adequate. Will maintain spear catheter for another day , to monitor fluid status.
[2016-08-06] MEDS: PANTOPRAZOLE SODIUM 100 ML IVPB SCH (09:19)
[2016-08-06] MEDS: HYDROmorphone *PCA* 10MG/50ML DISP.SYRIN PCA SCH ×2 (09:32→18:29)
--- NOTE | 2016-08-06 10:18 | PN ---
Progress Note, Physician Chief Complaint: s/p Arias procedure descending colosctomy, colectomy and peritoneal wash out c/o pain at side pt sitting up in chair NGT+ - Current Medication List Current Medications: Active Medications Heparin Sodium (Porcine) (Heparin *Pediatric* -) 5,000 unit SQ BID MANNY Hydromorphone HCl (Dilaudid Manager Ct -) 10 mg CORPORATE TRAVEL COUNSELOR CORPORATE TRAVEL COUNSELOR MANNY PRN Reason: Protocol Stop: 08/12/16 19:04 Last Admin: 08/06/16 09:32 Dose: 10 mg Hydromorphone HCl (Dilaudid Injection -) 1 mg IVPB Q4H PRN PRN Reason: PAIN Dextrose/Lactated Ringer's (D5-Lr -) 1,000 mls @ 150 mls/hr IV ASDIR [facility] Last Admin: 08/06/16 09:19 Dose: 150 mls/hr Metronidazole (Flagyl 500mg Premixed Ivpb -) 100 mls @ 100 mls/hr IVPB Q8H-IV MANNY Last Admin: 08/06/16 09:57 Dose: 100 mls/hr Pantoprazole Sodium (Protonix 40mg Ivpb (Pre-Docked)) 100 mls @ 200 mls/hr IVPB DAILY [facility] Last Admin: 08/06/16 09:19 Dose: 200 mls/hr Lorazepam (Ativan Injection -) 1 mg IVPUSH Q6H PRN PRN Reason: WITHDRAWAL(CONT SUBST) Ondansetron HCl (Zofran Injection) 4 mg IVPB Q6H PRN PRN Reason: NAUSEA Piperacillin Sod/Tazobactam Sod (Zosyn 4.5gm Ivpb (Pre-Docked)) 4.5 gm IVPB Q8H -IV [facility] Last Admin: 08/06/16 09:19 Dose: 4.5 gm Promethazine HCl (Phenergan Injection -) 12.5 mg IVPB Q6H PRN PRN Reason: NAUSEA AND/OR VOMITING - Objective Vital Signs: Vital Signs Temperature 98.9 F 08/06/16 08:00 Pulse Rate 86 08/06/16 09:45 Respiratory Rate 18 08/06/16 09:45 Blood Pressure 147/82 08/06/16 09:45 O2 Sat by Pulse Oximetry (%) 94 L 08/06/16 07:31 Constitutional: Yes: Moderate Distress Cardiovascular: Yes: Regular Rate and Rhythm Respiratory: Yes: CTA Bilaterally Gastrointestinal: Yes: Soft, Tenderness, Other (dressing in midline, colostomy- - bloody discharge only). No: Normal Bowel Sounds, Distention Edema: No Psychiatric: Yes: Alert Labs: CBC, BMP 08/06/16 05:10 08/06/16 05:10 Problem List - Problems (1) Diverticulitis of intestine with perforation and abscess Code(s): K57.80 - DVTRCLI OF INTEST, PART UNSP, W PERF AND ABSCESS W/O BLEED Qualifiers: Diverticulitis site: large intestine Diverticulitis bleeding: without bleeding Qualified Code(s): K57.20 - Diverticulitis of large intestine with perforation and abscess without bleeding (2) Hypertension Code(s): I10 - ESSENTIAL (PRIMARY) HYPERTENSION (3) Smoker Code(s): F17.200 - NICOTINE DEPENDENCE, UNSPECIFIED, UNCOMPLICATED Assessment/Plan PLAN s/p surgery POD #1 NGT NPO Spoke with ICU team and Dr Oleary increase pain management IV fluids ID follow up noted-- IV antibiotics-- Norman spoke with incentive spirometry DVT prophylaxis-- Heparin sc GI prophylaxes-- Protonix Time spent 30 min
[2016-08-06] MEDS ORDERED: MENTHOL/PHENOL 1 EACH UD MM PRN (11:03)
--- NOTE | 2016-08-06 12:45 | PN ---
Teaching Attending Note ATTENDING PHYSICIAN STATEMENT I saw and evaluated the patient. I reviewed the resident's note and discussed the case with the resident. I agree with the resident's findings and plan as documented. SUBJECTIVE: OBJECTIVE: ASSESSMENT AND PLAN:
--- NOTE | 2016-08-06 12:49 | PN ---
Teaching Attending Note Name of Resident: Maria Ines Soriano ATTENDING PHYSICIAN STATEMENT I saw and evaluated the patient. I reviewed the resident's note and discussed the case with the resident. I agree with the resident's findings and plan as documented. SUBJECTIVE: Patient seen and examined in the ICU. Awake and alert. (+) abdominal pain. Dilaudid FUN HOUSE OPERATOR pump. No CP or SOB. Intake & Output 08/03/16 08/04/16 08/05/16 08/06/16 23:59 23:59 23:59 23:59 Intake Total 200 5213 2000 Output Total 610 400 Balance 200 4603 1600 Weight 114 lb 10.246 oz 114 lb 10.246 oz 175 lb 3 oz Last Vital Signs Temp Pulse Resp BP Pulse Ox 98.9 F 90 18 145/70 94 L 08/06/16 10:00 08/06/16 12:00 08/06/16 12:00 08/06/16 12:00 08/06/16 11:08 Active Medications Eucalyptus/Menthol/Phenol/Sorbitol (Cepastat Lozenge -) 1 each MM PRN PRN PRN Reason: SORE THROAT Heparin Sodium (Porcine) (Heparin *Pediatric* -) 5,000 unit SQ BID MANYN Hydromorphone HCl (Dilaudid Station Operator -) 10 mg FUN HOUSE OPERATOR FUN HOUSE OPERATOR MANNY PRN Reason: Protocol Stop: 08/12/16 19:04 Last Admin: 08/06/16 09:32 Dose: 10 mg Hydromorphone HCl (Dilaudid Injection -) 1 mg IVPB Q4H PRN PRN Reason: PAIN Dextrose/Lactated Ringer's (D5-Lr -) 1,000 mls @ 150 mls/hr IV ASDIR MANNY Last Admin: 08/06/16 09:19 Dose: 150 mls/hr Metronidazole (Flagyl 500mg Premixed Ivpb -) 100 mls @ 100 mls/hr IVPB Q8H-IV MANNY Last Admin: 08/06/16 09:57 Dose: 100 mls/hr Pantoprazole Sodium (Protonix 40mg Ivpb (Pre-Docked)) 100 mls @ 200 mls/hr IVPB DAILY MANNY Last Admin: 08/06/16 09:19 Dose: 200 mls/hr Lorazepam (Ativan Injection -) 1 mg IVPUSH Q6H PRN PRN Reason: WITHDRAWAL(CONT SUBST) Ondansetron HCl (Zofran Injection) 4 mg IVPB Q6H PRN PRN Reason: NAUSEA Piperacillin Sod/Tazobactam Sod (Zosyn 4.5gm Ivpb (Pre-Docked)) 4.5 gm IVPB Q8H -IV MANNY Last Admin: 08/06/16 09:19 Dose: 4.5 gm Promethazine HCl (Phenergan Injection -) 12.5 mg IVPB Q6H PRN PRN Reason: NAUSEA AND/OR VOMITING Constitutional: Yes: Awake and alert Eyes: Yes: Conjunctiva Clear HENT: Yes: Atraumatic Cardiovascular: Yes: Regular Rate and Rhythm, S1, S2. No: Gallop, Murmur, Rub Respiratory: Yes: Dimished at the bases Gastrointestinal: Yes: Hypoactive Bowel Sounds, Tenderness Extremities: Yes: WNL Edema: No Peripheral Pulses WNL: Yes Integumentary: Yes: WNL Wound/Incision: Yes: Dressing c/d/i, ostomy appears clean with drainage canula draining sero-sanguinous fluid) Neurological: Yes: Non-focal ...Motor Strength: WNL Labs: Laboratory Results - last 24 hr 08/05/16 08/05/16 08/05/16 19:00 19:00 19:10 WBC 6.8 D RBC 4.51 Hgb 14.2 Hct 43.6 MCV 96.7 H MCHC 32.5 RDW 13.8 Plt Count 149 MPV 11.0 D Neutrophils % Lymphocytes % Monocytes % Eosinophils % Basophils % Sodium 142 Potassium 3.8 Chloride 109 H Carbon Dioxide 21 Anion Gap 12 BUN 12 Creatinine 0.5 L Creat Clearance w eGFR POC Glucometer Random Glucose 137 H Calcium 7.2 L Total Bilirubin AST ALT Alkaline Phosphatase Total Protein Albumin Blood Type AB POSITIVE Antibody Screen Negative 08/05/16 08/05/16 08/06/16 19:10 23:53 05:10 WBC 5.3 RBC 4.04 Hgb 12.9 Hct 39.2 MCV 96.9 H MCHC 33.0 RDW 13.8 Plt Count 162 MPV 10.9 Neutrophils % 84.3 H Lymphocytes % 7.7 L Monocytes % 7.5 Eosinophils % 0.2 D Basophils % 0.3 Sodium Potassium Chloride Carbon Dioxide Anion Gap BUN Creatinine Creat Clearance w eGFR POC Glucometer 225.87650 Random Glucose Calcium Total Bilirubin AST ALT Alkaline Phosphatase Total Protein Albumin Blood Type AB POSITIVE Antibody Screen 08/06/16 08/06/16 08/06/16 05:10 05:36 10:59 WBC RBC Hgb Hct MCV MCHC RDW Plt Count MPV Neutrophils % Lymphocytes % Monocytes % Eosinophils % Basophils % Sodium 141 Potassium 4.0 Chloride 108 H Carbon Dioxide 25 Anion Gap 8 BUN 12 Creatinine 0.5 L Creat Clearance w eGFR > 60 POC Glucometer 226.69725 182.17337 Random Glucose 192 H D Calcium 7.2 L Total Bilirubin 1.5 H D AST 27 D ALT 20 Alkaline Phosphatase 31 L D Total Protein 4.6 L D Albumin 2.1 L D Blood Type Antibody Screen Problem List - Problems (1) Alcohol dependence Code(s): F10.20 - ALCOHOL DEPENDENCE, UNCOMPLICATED Qualifiers: Substance use status: uncomplicated Qualified Code(s): F10.20 - Alcohol dependence, uncomplicated (2) Diabetes 1.5, managed as type 2 Code(s): E10.9 - TYPE 1 DIABETES MELLITUS WITHOUT COMPLICATIONS (3) Diverticulitis of intestine with perforation and abscess Code(s): K57.80 - DVTRCLI OF INTEST, PART UNSP, W PERF AND ABSCESS W/O BLEED Qualifiers: Diverticulitis site: large intestine Diverticulitis bleeding: without bleeding Qualified Code(s): K57.20 - Diverticulitis of large intestine with perforation and abscess without bleeding (4) Hypertension Code(s): I10 - ESSENTIAL (PRIMARY) HYPERTENSION (5) Perforated bowel Code(s): K63.1 - PERFORATION OF INTESTINE (NONTRAUMATIC) (6) Smoker Code(s): F17.200 - NICOTINE DEPENDENCE, UNSPECIFIED, UNCOMPLICATED Assessment/Plan Increase pain meds ABX per ID IVF Strict I&O PPI VTE prophylaxis Incentive Spirometry ICU Monitoring Dr Barrett critical care time spent in reviewing chart, evaluating patient and formulating plan 35 min
--- NOTE | 2016-08-06 16:17 | PN ---
Physical Exam: SUBJECTIVE: Patient seen and examined. He is complaining of abdominal pain and was advised to ask for pain medications: ASBESTOS WIRE FINISHER pump. OBJECTIVE: Vital Signs Period Temp Pulse Resp BP Sys/Najera Pulse Ox Last 24 Hr 98.2 F-99.9 F 80-99 13-21 118-197/70-90 93-100 GENERAL: The patient is awake, alert, and fully oriented, in moderate distress. HEAD: Normal with no signs of trauma. EYES: extraocular movements intact, sclera anicteric, conjunctiva clear. ENT: oropharynx clear without exudates, dry mucous membranes, NG tube inserted, draining. NECK: Trachea midline, full range of motion, supple. LUNGS:clear to auscultation bilaterally, no wheezes, no crackles, no accessory muscle use. HEART: Regular rate and rhythm, S1, S2 without murmur, rub or gallop. ABDOMEN: Soft, tender in all 4 q, distended, hypooactive bowel sounds, no guarding, no rebound, no hepatosplenomegaly, no masses, healing longitudinal wound, dry, kelsi applied, covered with dressing. EXTREMITIES:no edema. NEUROLOGICAL: No facial asymmetry. Normal speech, gait not observed. PSYCH: Normal mood, normal affect. SKIN: Warm, dry, normal turgor, no rashes or lesions noted Laboratory Results - last 24 hr 08/05/16 08/05/16 08/05/16 19:00 19:00 19:10 WBC 6.8 D RBC 4.51 Hgb 14.2 Hct 43.6 MCV 96.7 H MCHC 32.5 RDW 13.8 Plt Count 149 MPV 11.0 D Neutrophils % Lymphocytes % Monocytes % Eosinophils % Basophils % Sodium 142 Potassium 3.8 Chloride 109 H Carbon Dioxide 21 Anion Gap 12 BUN 12 Creatinine 0.5 L Creat Clearance w eGFR POC Glucometer Random Glucose 137 H Calcium 7.2 L Total Bilirubin AST ALT Alkaline Phosphatase Total Protein Albumin Blood Type AB POSITIVE Antibody Screen Negative 08/05/16 08/05/16 08/06/16 19:10 23:53 05:10 WBC 5.3 RBC 4.04 Hgb 12.9 Hct 39.2 MCV 96.9 H MCHC 33.0 RDW 13.8 Plt Count 162 MPV 10.9 Neutrophils % 84.3 H Lymphocytes % 7.7 L Monocytes % 7.5 Eosinophils % 0.2 D Basophils % 0.3 Sodium Potassium Chloride Carbon Dioxide Anion Gap BUN Creatinine Creat Clearance w eGFR POC Glucometer 225.26435 Random Glucose Calcium Total Bilirubin AST ALT Alkaline Phosphatase Total Protein Albumin Blood Type AB POSITIVE Antibody Screen 08/06/16 08/06/16 08/06/16 05:10 05:36 10:59 WBC RBC Hgb Hct MCV MCHC RDW Plt Count MPV Neutrophils % Lymphocytes % Monocytes % Eosinophils % Basophils % Sodium 141 Potassium 4.0 Chloride 108 H Carbon Dioxide 25 Anion Gap 8 BUN 12 Creatinine 0.5 L Creat Clearance w eGFR > 60 POC Glucometer 226.76288 182.14503 Random Glucose 192 H D Calcium 7.2 L Total Bilirubin 1.5 H D AST 27 D ALT 20 Alkaline Phosphatase 31 L D Total Protein 4.6 L D Albumin 2.1 L D Blood Type Antibody Screen Active Medications Generic Name Dose Route Start Last Admin Trade Name Freq PRN Reason Stop Dose Admin Eucalyptus/Menthol/Phenol/Sorbitol 1 each 08/06/16 11:03 Cepastat Lozenge - MM PRN PRN SORE THROAT Heparin Sodium (Porcine) 5,000 unit 08/07/16 10:00 Heparin *Pediatric* - SQ BID MANNY Hydromorphone HCl 10 mg 08/05/16 19:15 08/06/16 09:32 Dilaudid Loan Reviewer - ASBESTOS WIRE FINISHER 08/12/16 19:04 10 mg ASBESTOS WIRE FINISHER MANNY Administration Protocol Hydromorphone HCl 1 mg 08/05/16 19:15 Dilaudid Injection - IVPB Q4H PRN PAIN Dextrose/Lactated Ringer's 1,000 mls @ 150 mls/hr 08/05/16 19:00 08/06/16 09:19 D5-Lr - IV 150 mls/hr ASDIR MANNY Administration Metronidazole 100 mls @ 100 mls/hr 08/06/16 02:00 08/06/16 09:57 Flagyl 500mg Premixed Ivpb - IVPB 100 mls/hr Q8H-IV MANNY Administration Pantoprazole Sodium 100 mls @ 200 mls/hr 08/06/16 10:00 08/06/16 09:19 Protonix 40mg Ivpb (Pre-Docked) IVPB 200 mls/hr DAILY MANNY Administration Lorazepam 1 mg 08/05/16 19:15 Ativan Injection - IVPUSH Q6H PRN WITHDRAWAL(CONT SUBST) Ondansetron HCl 4 mg 08/05/16 19:15 Zofran Injection IVPB Q6H PRN NAUSEA Piperacillin Sod/Tazobactam Sod 4.5 gm 08/06/16 02:00 08/06/16 09:19 Zosyn 4.5gm Ivpb (Pre-Docked) IVPB 4.5 gm Q8H-IV MANNY Administration Promethazine HCl 12.5 mg 08/05/16 19:03 Phenergan Injection - IVPB Q6H PRN NAUSEA AND/OR VOMITING ASSESSMENT/PLAN: 61 y/o man with HTN, HLD, NIDDM who presented with abdominal pain and constipation, found to have acute diverticulitis with perforation and intra- abdominal abscess now s/p ex-lap, partial colectomy, splenic flexure mobilization, hartmans procedure, descending colostomy, peritoneal washout and omentectomy, admitted to ICU for monitoring post-op. S/P ex lap: -post op wound care -dressing changed today, wound clean, dry, -GI following -ID following - continue zosyn, flagyl, -monitor sxs of infection -pain control with ASBESTOS WIRE FINISHER -NPO -continuous IVF -Zofran 4 mg -hemodynamic monitoring - IV antihypertensives PRN DM type 2; -monitor BGM HTN: hold for now Current smoker: -counseling GI PPX: -GI ppx DVT PPX -venodynes -Heparin SQ Disposition: ICU monitoring FULL CODE Problem List - Problems (1) Diabetes 1.5, managed as type 2 Code(s): E10.9 - TYPE 1 DIABETES MELLITUS WITHOUT COMPLICATIONS (2) Diverticulitis of intestine with perforation and abscess Code(s): K57.80 - DVTRCLI OF INTEST, PART UNSP, W PERF AND ABSCESS W/O BLEED Qualifiers: Diverticulitis site: large intestine Diverticulitis bleeding: without bleeding Qualified Code(s): K57.20 - Diverticulitis of large intestine with perforation and abscess without bleeding (3) Fecal peritonitis Code(s): K65.8 - OTHER PERITONITIS (4) Hypertension Code(s): I10 - ESSENTIAL (PRIMARY) HYPERTENSION (5) Perforated bowel Code(s): K63.1 - PERFORATION OF INTESTINE (NONTRAUMATIC) (6) Smoker Code(s): F17.200 - NICOTINE DEPENDENCE, UNSPECIFIED, UNCOMPLICATED Visit type - Emergency Visit Emergency Visit: Yes ED Registration Date: 08/03/16 Care time: The patient presented to the Emergency Department on the above date and was hospitalized for further evaluation of their emergent condition. - New Patient This patient is new to me today: Yes Date on this admission: 08/06/16 - Critical Care Critical Care patient: Yes Total Critical Care Time (in minutes): 40 Critical Care Statement: The care of this patient involved high complexity decision making to prevent further life threatening deterioration of the patient 's condition and/or to evalute & treat vital organ system(s) failure or risk of failure.
[2016-08-06] MEDS ORDERED: PT OWN MED DRAWER 7, Y5N ONE (16:34)
[2016-08-06] MEDS ORDERED: PHENOL 177 ML SPRAY BOTTLE MM PRN (16:47)
[2016-08-07] MEDS: PIPERACILLIN/TAZOB 4.5 GM/100 ML PRE-DOCKED IVPB SCH ×3 (01:20→18:17)
[2016-08-07] MEDS ORDERED: HYDROmorphone *PCA* 10MG/50ML DISP.SYRIN PCA ONE (01:40)
[2016-08-07] MEDS: METRONIDAZOLE 500 MG PREMIXED 100 ML IVPB SCH (02:21)
[2016-08-07 06:05] LABS: MCH 32.2 pg (25.7-33.7); MCHC 33.1 g/dl (32.0-35.9); MEAN CELL VOLUME 97.2 fl (80-96); PLATELET COUNT 153 K/MM3 (134-434); RDW 13.8 % (11.9-15.9); WHITE BLOOD COUNT 10.5 K/mm3 (4.0-10.0)
[2016-08-07 06:33] LABS: ALBUMIN 2.1 g/dl (3.4-5.0); ANION GAP 6 (8-16); CALCIUM 7.5 mg/dL (8.5-10.1); CO2 31 mmol/L (21-32); COCKROFT - GAULT 176.58; CREATININE 0.5 mg/dL (0.7-1.3); GLUCOSE,RANDOM 131 mg/dL (74-106); SGOT/AST 17 U/L (15-37); SGPT/ALT 15 U/L (12-78)
[2016-08-07 06:35] LABS: ALK PHOS 32 U/L (45-117); BILIRUBIN,TOTAL 0.8 mg/dL (0.2-1.0); TOT PROT 4.6 g/dl (6.4-8.2)
--- NOTE | 2016-08-07 07:24 | PN ---
Progress Note, Physician Chief Complaint: ID Post op day 2 surgery for perforated viscus gangrene bowel diverticulitis feculent peritonitis Patient appears to be doing well only complaint post op abd pain No fever - Current Medication List Current Medications: Active Medications Heparin Sodium (Porcine) (Heparin *Pediatric* -) 5,000 unit SQ BID MANNY Hydromorphone HCl (Dilaudid Consumer Insight Analyst -) 10 mg KITCHEN AND BATH DESIGNER KITCHEN AND BATH DESIGNER MANNY PRN Reason: Protocol Stop: 08/12/16 19:04 Last Admin: 08/06/16 18:29 Dose: Not Given Hydromorphone HCl (Dilaudid Injection -) 1 mg IVPB Q4H PRN PRN Reason: PAIN Metronidazole (Flagyl 500mg Premixed Ivpb -) 100 mls @ 100 mls/hr IVPB Q8H-IV MANNY Last Admin: 08/07/16 02:21 Dose: 100 mls/hr Pantoprazole Sodium (Protonix 40mg Ivpb (Pre-Docked)) 100 mls @ 200 mls/hr IVPB DAILY [facility] Last Admin: 08/06/16 09:19 Dose: 200 mls/hr Dextrose/Lactated Ringer's (D5-Lr -) 1,000 mls @ 100 mls/hr IV ASDIR MANNY Last Admin: 08/06/16 17:52 Dose: 100 mls/hr Lorazepam (Ativan Injection -) 1 mg IVPUSH Q6H PRN PRN Reason: WITHDRAWAL(CONT SUBST) Ondansetron HCl (Zofran Injection) 4 mg IVPB Q6H PRN PRN Reason: NAUSEA Phenol/Menthol (Chloraseptic -) 1 spray MM Q6HPO PRN PRN Reason: SORE THROAT Last Admin: 08/06/16 17:53 Dose: 1 spray Piperacillin Sod/Tazobactam Sod (Zosyn 4.5gm Ivpb (Pre-Docked)) 4.5 gm IVPB Q8H -IV MANNY Last Admin: 08/07/16 01:20 Dose: 4.5 gm Promethazine HCl (Phenergan Injection -) 12.5 mg IVPB Q6H PRN PRN Reason: NAUSEA AND/OR VOMITING - Objective Vital Signs: Vital Signs Temperature 98.6 F 08/07/16 04:00 Pulse Rate 83 08/07/16 04:00 Respiratory Rate 12 08/07/16 04:00 Blood Pressure 130/62 08/07/16 04:00 O2 Sat by Pulse Oximetry (%) 94 L 08/06/16 21:00 Constitutional: Yes: Well Nourished, No Distress HENT: Yes: WNL, Atraumatic Neck: Yes: WNL, Supple Cardiovascular: Yes: Regular Rate and Rhythm, S1, S2 Respiratory: Yes: WNL, Regular, CTA Bilaterally Gastrointestinal: Yes: WNL, Normal Bowel Sounds, Soft Edema: No Labs: CBC, BMP 08/07/16 05:00 08/07/16 05:00 Problem List - Problems (1) Perforated bowel Code(s): K63.1 - PERFORATION OF INTESTINE (NONTRAUMATIC) (2) Fecal peritonitis Code(s): K65.8 - OTHER PERITONITIS (3) Alcohol dependence Code(s): F10.20 - ALCOHOL DEPENDENCE, UNCOMPLICATED Qualifiers: Substance use status: uncomplicated Qualified Code(s): F10.20 - Alcohol dependence, uncomplicated (4) Diabetes 1.5, managed as type 2 Code(s): E10.9 - TYPE 1 DIABETES MELLITUS WITHOUT COMPLICATIONS Assessment/Plan Microbiology 08/05/16 18:37 Peritoneal Fluid Gram Stain - Final 08/05/16 11:49 Abscess Gram Stain - Final 08/05/16 11:49 Abscess Body Fluid Culture - Preliminary Group D Strep Or Entero Coccus Lactose Fermenting Neg Bacilli Presumptive Ps Aeruginosa Lactose Fermenting Neg Bacilli#2 08/03/16 22:55 Blood - Peripheral Venous Blood Culture - Preliminary NO GROWTH OBTAINED AFTER 72 HOURS, INCUBATION TO CONTINUE FOR 2 DAYS. 08/03/16 22:53 Blood - Peripheral Venous Blood Culture - Preliminary NO GROWTH OBTAINED AFTER 72 HOURS, INCUBATION TO CONTINUE FOR 2 DAYS. Laboratory Tests 08/07/16 08/07/16 05:00 05:00 WBC 10.5 H D Hgb 10.8 L D Hct 32.6 L D Plt Count 153 BUN 9 D Creatinine 0.5 L Assessment Day 2 post op exploratory lap Arias procedure Peritonitis polymicrobial freddie Plan Continue Zosyn as ordered Stop metronidazole Critical care time spent 35 minutes Harika DALTON
--- NOTE | 2016-08-07 08:47 | PN ---
Progress Note (short form) - Note Progress Note: SUBJECTIVE: Patient seen and examined in the ICU. Chart reviewed. Post op day #2. Comfortable. Reports pain under control. Not passing gas yet. OBJECTIVE: Vital Signs 08/07/16 08/07/16 08/07/16 02:00 04:00 06:00 Temperature 98.9 F 98.6 F Pulse Rate 83 83 88 Respiratory 12 12 20 Rate Blood Pressure 138/66 130/62 137/68 08/07/16 08:00 Temperature Pulse Rate 80 Respiratory 20 Rate Blood Pressure 151/79 Intake & Output 08/06/16 08/07/16 08/07/16 23:59 07:59 15:59 Intake Total 1500 1400 Output Total 330 310 Balance 1170 1090 Weight 79.464 kg Intake: IV 1300 1200 D5-Lr - 1,000 ml @ 150 1150 mls/hr IV ASDIR MANNY Rx#: [id number] D5-Lr - 1,000 ml @ 074 358 6682 mls/hr IV ASDIR MANNY Rx#: [id number] dilaudid 50 IVPB 200 200 Output: Gastric Drainage 10 Drainage 20 10 Left Abdomen 20 10 Urine 300 300 Yepez 300 300 Other: Voiding Method Indwelling Catheter Weight Measurement Method Built in [facility] Active Medications Heparin Sodium (Porcine) (Heparin *Pediatric* -) 5,000 unit SQ BID MANNY Hydromorphone HCl (Dilaudid Personnel Analyst -) 10 mg AERIAL TRAM OPERATOR AERIAL TRAM OPERATOR MANNY PRN Reason: Protocol Stop: 08/12/16 19:04 Last Admin: 08/06/16 18:29 Dose: Not Given Hydromorphone HCl (Dilaudid Injection -) 1 mg IVPB Q4H PRN PRN Reason: PAIN Pantoprazole Sodium (Protonix 40mg Ivpb (Pre-Docked)) 100 mls @ 200 mls/hr IVPB DAILY MANNY Last Admin: 08/06/16 09:19 Dose: 200 mls/hr Dextrose/Lactated Ringer's (D5-Lr -) 1,000 mls @ 100 mls/hr IV ASDIR MANNY Last Admin: 08/06/16 17:52 Dose: 100 mls/hr Lorazepam (Ativan Injection -) 1 mg IVPUSH Q6H PRN PRN Reason: WITHDRAWAL(CONT SUBST) Ondansetron HCl (Zofran Injection) 4 mg IVPB Q6H PRN PRN Reason: NAUSEA Phenol/Menthol (Chloraseptic -) 1 spray MM Q6HPO PRN PRN Reason: SORE THROAT Last Admin: 08/06/16 17:53 Dose: 1 spray Piperacillin Sod/Tazobactam Sod (Zosyn 4.5gm Ivpb (Pre-Docked)) 4.5 gm IVPB Q8H -IV MANNY Last Admin: 08/07/16 01:20 Dose: 4.5 gm Promethazine HCl (Phenergan Injection -) 12.5 mg IVPB Q6H PRN PRN Reason: NAUSEA AND/OR VOMITING CBC, BMP 08/07/16 05:00 08/07/16 05:00 Laboratory Results - last 24 hr 08/06/16 08/06/16 08/07/16 10:59 16:30 05:00 WBC 10.5 H D RBC 3.36 L Hgb 10.8 L D Hct 32.6 L D MCV 97.2 H MCHC 33.1 RDW 13.8 Plt Count 153 MPV 11.0 Sodium Potassium Chloride Carbon Dioxide Anion Gap BUN Creatinine Creat Clearance w eGFR POC Glucometer 182.37297 189.11171 Random Glucose Calcium Total Bilirubin AST ALT Alkaline Phosphatase Total Protein Albumin 08/07/16 08/07/16 05:00 05:17 WBC RBC Hgb Hct MCV MCHC RDW Plt Count MPV Sodium 142 Potassium 4.3 Chloride 105 Carbon Dioxide 31 D Anion Gap 6 L BUN 9 D Creatinine 0.5 L Creat Clearance w eGFR > 60 POC Glucometer 168.24939 Random Glucose 131 H D Calcium 7.5 L Total Bilirubin 0.8 D AST 17 D ALT 15 D Alkaline Phosphatase 32 L Total Protein 4.6 L Albumin 2.1 L Microbiology 08/05/16 11:49 Gram Stain - Final Abscess Body Fluid Culture - Preliminary Group D Strep Or Entero Coccus Lactose Fermenting Neg Bacilli Presumptive Ps Aeruginosa Lactose Fermenting Neg Bacilli#2 Anaerobic Culture - Final NO ANAEROBES WERE ISOLATED 08/03/16 22:53 Blood Culture - Preliminary Blood - Peripheral Venous NO GROWTH OBTAINED AFTER 72 HOURS, INCUBATION TO CONTINUE FOR 2 DAYS. 08/03/16 22:55 Blood Culture - Preliminary Blood - Peripheral Venous NO GROWTH OBTAINED AFTER 72 HOURS, INCUBATION TO CONTINUE FOR 2 DAYS. 08/05/16 18:37 Gram Stain - Final Peritoneal Fluid PHYSICAL EXAMINATION: Constitutional: Yes:No Distress. NGT in place. Cardiovascular: Yes: Regular Rate and Rhythm Respiratory: Yes: Diminished at bases. Gastrointestinal: Yes: Soft. Quiet. Colostomy bag in place-- dressing present. Yepez present. Edema: No Psychiatric: Yes: Alert Problem List - Problems (1) Diverticulitis of intestine with perforation and abscess Code(s): K57.80 - DVTRCLI OF INTEST, PART UNSP, W PERF AND ABSCESS W/O BLEED Qualifiers: Diverticulitis site: large intestine Diverticulitis bleeding: without bleeding Qualified Code(s): K57.20 - Diverticulitis of large intestine with perforation and abscess without bleeding (2) Hypertension Code(s): I10 - ESSENTIAL (PRIMARY) HYPERTENSION (3) Smoker Code(s): F17.200 - NICOTINE DEPENDENCE, UNSPECIFIED, UNCOMPLICATED ASSESSMENT & PLAN: - s/p surgery POD #2 - NGT - NPO - Continue present care. - Antibiotics. - Follow up electrolytes closely. - Surgery to follow. - Discussed with nursing staff also. - Will discuss with Dr. Oleary also. - CC Time 25 minutes. - Will follow. Documentation prepared by Celia Arrington, acting as a medical lab tech instructor for No Dillard MD.
--- NOTE | 2016-08-07 09:00 | PN ---
Progress Note (short form) - Note Progress Note: Anesthesia post op Pt seen and examined S;Alert and awake, comfortable on TOXICOLOGY TEACHER O: Vital Signs Temperature 98.6 F 08/07/16 04:00 Pulse Rate 80 08/07/16 08:00 Respiratory Rate 20 08/07/16 08:00 Blood Pressure 151/79 08/07/16 08:00 O2 Sat by Pulse Oximetry (%) 94 L 08/06/16 21:00 CBC, BMP 08/07/16 05:00 08/07/16 05:00 A/P: Current Active Problems Alcohol dependence (Acute) Diabetes 1.5, managed as type 2 (Acute) Diverticulitis of intestine with perforation and abscess (Acute) Fecal peritonitis (Acute) Hypertension (Acute) Perforated bowel (Acute) Smoker (Acute) s/p Arias procedure Uses TOXICOLOGY TEACHER still NPO Continue current care Ottoniel Coleman
--- NOTE | 2016-08-07 09:45 | OP ---
DATE OF OPERATION: 08/05/2016 PREOPERATIVE DIAGNOSIS: Acute diverticulitis with perforation and fecal peritonitis. POSTOPERATIVE DIAGNOSIS: Gangrene of segment of the sigmoid colon with fecal peritonitis and perforation, presumably diverticulitis with perforation. OPERATIVE PROCEDURE: 1. Exploratory laparotomy. 2. Resection of the proximal sigmoid colon with proximal descending colostomy and closure of the distal segment (Praveen procedure), and omentectomy. 3. Peritoneal washout of all fecal material and infected material. SURGEON: Raisa Oleary MD BANKING CONSULTANT: Antonino Velarde MD SECOND BANKING CONSULTANT: PAULA Cruz ANESTHESIA: General anesthesia. OPERATIVE DESCRIPTION: This 61-year-old man presented with acute abdominal pain of sudden onset in the left lower quadrant of the abdomen. The CT scan showed micro perforation with possible abscess. Patient was placed on antibiotics. His white count improved. An attempt was made to drain the abscess by interventional radiology. In fact, feculent material was found and there was found to be spillage of fecal matter outside the lumen of the bowel. It was therefore decided to take him for a laparotomy and resection of the bowel. Consent was obtained. Patient and his were informed of the risks, benefits, and possible complications. Patient had been on antibiotics and was n.p.o. with IV fluids. He was taken to the operating room where general anesthesia was then administered. A Yepez catheter was placed in the bladder. An NG tube was placed. The abdomen was painted and draped, and time-out was called. The abdomen was opened through a vertical midline incision above and below the umbilicus. On entering the abdominal cavity, there was some feculent material in the abdominal cavity. There was a large mass in the left side of the abdomen with a phlegmon surrounded by diseased sigmoid colon, the distal descending colon, and the small bowel. This was carefully . Small bowel was distended throughout the length of the small intestine. After releasing all the adhesions, the abdominal cavity was washed thoroughly. In the proximal sigmoid colon, there was noted a gangrenous segment of the sigmoid with perforation freely through the mesentery into the peritoneal cavity. The mesentery of the sigmoid and the distal descending colon was very friable, very erythematous. It was then decided to resect the segment of the large intestine and do proximal colostomy and distal mucous fistula, namely a Praveen procedure. The lateral peritoneal reflection of the sigmoid colon and then descending colon was incised all the way from the pelvis towards the splenic flexure of the colon. The descending colon and sigmoid colon were mobilized medially. The sigmoid colon was then resected for a segment of about 10 cm where the bowel was gangrenous, starting with the mesentery of the sigmoid colon. The peritoneum was incised, and the blood vessels were divided between Carolin clamps and ligated. Distally it was carried to about 4-5 cm beyond the diseased sigmoid colon and proximally it was carried about 3-4 cm proximal to the gangrenous bowel. All the mesentery was divided. The distal segment was first divided as said earlier at 5-6 cm from the perforated site. At a level that was normal, this was divided using the NATHANIEL stapling device. Once the mesentery of the sigmoid colon was divided along with its vessels, the proximal division was made again using the NATHANIEL stapling device. The specimen was sent to Pathology with a marker to the suture in the proximal portion of the resected specimen. The lateral peritoneal reflection on the descending colon was then mobilized. This was carried around the splenic flexure. This was brought down and all the way towards the mid transverse colon, dividing the greater omentum on the opposite to the mesentery. The abdominal cavity was thoroughly irrigated with normal saline, irrigating all the 4 quadrants separately with about 2 L of saline. Bowel was also run from the duodenojejunal flexure to the ligament of Treitz. Once the descending colon was mobilized, staple was closed and was brought out as a colostomy through the abdominal wall and the left lower quadrant of the abdomen. Cruciate incision was made in the left lower quadrant of the abdomen about long term between the umbilicus and the anterior-superior iliac spine. The subcutaneous fat was then excised, and the posterior rectus sheath and external oblique aponeurosis were incised in horizontal fashion. The rectus muscle was moved medially; and lateral to the rectus, the posterior rectus sheath and peritoneum were incised. The mobilized descending colon that was stapled, was brought out through the abdominal wall. The opening at the colostomy site, was at least between 2-3 fingers in diameter. Part of the omentum attached to the distal transverse colon was excised along and sent to Pathology, as well. The abdominal cavity was then thoroughly irrigated with normal saline, all necrotic tissue was debrided. All exudates were also carefully removed. After thorough irrigation of the abdominal cavity, the abdomen was then closed with No. 1 looped PDS sutures, one starting from the upper extent of the incision, another at the lower end of the incision. Fci in between, just below the umbilicus, the 2 sutures were tied to each other, thus closing the abdomen in a continuous running fashion. The colostomy was then anchored intraabdominally to the parietal peritoneum with interrupted 3-0 silk sutures. Likewise, the colostomy segment was also anchored to the anterior rectus sheath circumferentially with 6-8 sutures. Once this was done, the stapled end of the colon was brought out above the skin, and the edges of the large intestine were brought out as a colostomy. It was anchored to the edge of the skin viz. the dermis with interrupted 3-0 silk sutures, bringing the stoma above the skin level. The stoma was actively bleeding and pink. After this, No.10 Yepez catheter was placed in the lumen of the colostomy, in the middle of the staple line, and this was tied to the colostomy with a pursestring silk suture. The Yepez catheter was then connected to a colostomy bag. The colostomy was thus adequately anchored to the abdominal wall and pink in color. The skin wound, in the midline, was packed with Iodoform gauze and loosely closed with kelsi. Sponge count and instrument count were correct. Estimated blood loss was about 250 mL. Patient was stable throughout the procedure. Patient had received about 3 L of fluid intraoperatively, and patient was sent to the recovery room in satisfactory and stable condition. He was then transferred to the ICU. Mandeep [id number] MTDD
[2016-08-07] MEDS ORDERED: PT OWN MED DRAWER 7, Y5N ONE (09:54)
[2016-08-07] MEDS ORDERED: HEPARIN NA (PORCINE) PF 1,000 UNITS/ML - 2ML VIAL SQ SCH (10:00)
[2016-08-07] MEDS: PANTOPRAZOLE SODIUM 100 ML IVPB SCH (10:02)
[2016-08-07] MEDS: HEPARIN NA (PORCINE) 5,000 UNITS/ML 1ML VIAL SQ SCH ×2 (10:09→21:46)
--- NOTE | 2016-08-07 10:34 | PN ---
Progress Note (short form) - Note Progress Note: Following for Dr Oleary S/P exploratory laparotomy, partial colectomy, descending colostomy, Arias's procedure for perforated colon In ICU Awake, alert NG tube in place Pain controlled Vital Signs Period Temp Pulse Resp BP Sys/Najera Pulse Ox Last 24 Hr 97.8 F-99.4 F 78-92 12-20 130-157/62-82 94-94 Abd soft, packing in place, ostomy pink/viable CBC, BMP 08/07/16 05:00 08/07/16 05:00 OOB Antibiotics Await ostomy output IV fluids
--- NOTE | 2016-08-07 12:38 | PN ---
Teaching Attending Note Name of Resident: Maria Ines Soriano ATTENDING PHYSICIAN STATEMENT I saw and evaluated the patient. I reviewed the resident's note and discussed the case with the resident. I agree with the resident's findings and plan as documented. SUBJECTIVE: Pt seen and examined in the ICU. Some incisional pain, c/o discomfort from NGT. No fevers recorded. OBJECTIVE: Last Vital Signs Temp Pulse Resp BP Pulse Ox 98.6 F 78 20 145/70 94 L 08/07/16 04:00 08/07/16 10:00 08/07/16 10:00 08/07/16 10:00 08/07/16 09:00 Intake & Output 08/04/16 08/05/16 08/06/16 08/07/16 23:59 23:59 23:59 23:59 Intake Total 200 5213 3800 1400 Output Total 610 1030 310 Balance 200 4603 2770 1090 Weight 114 lb 10.246 oz 175 lb 3 oz 175 lb 3 oz Gen: uncomfortable with movements Heart: RRR Lung: decreased breath sounds at the bases Abd: soft, +ostomy pink, no output Ext: no edema CBC, BMP 08/07/16 05:00 08/07/16 05:00 Active Medications Heparin Sodium (Porcine) (Heparin -) 5,000 unit SQ BID [facility] Last Admin: 08/07/16 10:09 Dose: 5,000 unit Hydromorphone HCl (Dilaudid Death Claim Examiner -) 10 mg RN TRAVEL RN TRAVEL MANNY PRN Reason: Protocol Stop: 08/12/16 19:04 Last Admin: 08/06/16 18:29 Dose: Not Given Hydromorphone HCl (Dilaudid Injection -) 1 mg IVPB Q4H PRN PRN Reason: PAIN Pantoprazole Sodium (Protonix 40mg Ivpb (Pre-Docked)) 100 mls @ 200 mls/hr IVPB DAILY [facility] Last Admin: 08/07/16 10:02 Dose: 200 mls/hr Dextrose/Lactated Ringer's (D5-Lr -) 1,000 mls @ 100 mls/hr IV ASDIR [facility] Last Admin: 08/06/16 17:52 Dose: 100 mls/hr Lorazepam (Ativan Injection -) 1 mg IVPUSH Q6H PRN PRN Reason: WITHDRAWAL(CONT SUBST) Ondansetron HCl (Zofran Injection) 4 mg IVPB Q6H PRN PRN Reason: NAUSEA Phenol/Menthol (Chloraseptic -) 1 spray MM Q6HPO PRN PRN Reason: SORE THROAT Last Admin: 08/06/16 17:53 Dose: 1 spray Piperacillin Sod/Tazobactam Sod (Zosyn 4.5gm Ivpb (Pre-Docked)) 4.5 gm IVPB Q8H -IV MANNY Last Admin: 08/07/16 10:02 Dose: 4.5 gm Promethazine HCl (Phenergan Injection -) 12.5 mg IVPB Q6H PRN PRN Reason: NAUSEA AND/OR VOMITING ASSESSMENT AND PLAN: Acute Perforated Diverticulitis Intra-abdominal Abscess/Feculent Peritonitis s/p ex-lap/Hartmans procedure/colostomy Sepsis HTN DM - continue antibiotics - f/u cultures - pain control - incentive spirometry - NPO - IVF - monitor lytes - await return of bowel function - OOB to chair - DVT prophylaxis - dispo per surgery critical care time spent in reviewing chart, evaluating patient and formulating plan 35 min
--- NOTE | 2016-08-07 16:59 | PN ---
Physical Exam: SUBJECTIVE: Patient seen and examined. The pt is sitting in chair, NG tube in place, draining, less than 100 ml in canister. He requests pain medications. He denies chest pain, SOB, cough, fever, chills. OBJECTIVE: Vital Signs Period Temp Pulse Resp BP Sys/Najera Pulse Ox Last 24 Hr 97.8 F-99.4 F 78-91 12-20 130-157/62-82 94-94 GENERAL: The patient is awake, alert, and fully oriented, in moderate distress. HEAD: Normal with no signs of trauma. EYES: extraocular movements intact, sclera anicteric, conjunctiva clear. ENT: oropharynx clear without exudates, dry mucous membranes, NG tube inserted, draining. NECK: Trachea midline, full range of motion, supple. LUNGS:clear to auscultation bilaterally, no wheezes, no crackles, no accessory muscle use. HEART: Regular rate and rhythm, S1, S2 without murmur, rub or gallop. ABDOMEN: Soft, tender in all 4 q, distended, hypooactive bowel sounds, no guarding, no rebound, no hepatosplenomegaly, no masses, healing longitudinal wound, dry, kelsi applied, covered with dressing. EXTREMITIES:no edema. NEUROLOGICAL: No facial asymmetry. Normal speech, gait not observed. PSYCH: Normal mood, normal affect. SKIN: Warm, dry, normal turgor, no rashes or lesions noted Laboratory Results - last 24 hr 08/07/16 08/07/16 08/07/16 05:00 05:00 05:17 WBC 10.5 H D RBC 3.36 L Hgb 10.8 L D Hct 32.6 L D MCV 97.2 H MCHC 33.1 RDW 13.8 Plt Count 153 MPV 11.0 Sodium 142 Potassium 4.3 Chloride 105 Carbon Dioxide 31 D Anion Gap 6 L BUN 9 D Creatinine 0.5 L Creat Clearance w eGFR > 60 POC Glucometer [phone] Random Glucose 131 H D Calcium 7.5 L Total Bilirubin 0.8 D AST 17 D ALT 15 D Alkaline Phosphatase 32 L Total Protein 4.6 L Albumin 2.1 L Active Medications Generic Name Dose Route Start Last Admin Trade Name Freq PRN Reason Stop Dose Admin Heparin Sodium (Porcine) 5,000 unit 08/07/16 10:00 08/07/16 10:09 Heparin - SQ 5,000 unit BID MANNY Administration Hydromorphone HCl 10 mg 08/05/16 19:15 08/06/16 18:29 Dilaudid Mixer Operator Tablets - SOLE TRIMMER 08/12/16 19:04 Not Given SOLE TRIMMER MANNY Protocol Hydromorphone HCl 1 mg 08/05/16 19:15 Dilaudid Injection - IVPB Q4H PRN PAIN Pantoprazole Sodium 100 mls @ 200 mls/hr 08/06/16 10:00 08/07/16 10:02 Protonix 40mg Ivpb (Pre-Docked) IVPB 200 mls/hr DAILY MANNY Administration Dextrose/Lactated Ringer's 1,000 mls @ 100 mls/hr 08/06/16 17:45 08/06/16 17:52 D5-Lr - IV 100 mls/hr ASDIR MANNY Administration Lorazepam 1 mg 08/05/16 19:15 Ativan Injection - IVPUSH Q6H PRN WITHDRAWAL(CONT SUBST) Ondansetron HCl 4 mg 08/05/16 19:15 Zofran Injection IVPB Q6H PRN NAUSEA Phenol/Menthol 1 spray 08/06/16 16:47 08/06/16 17:53 Chloraseptic - MM 1 spray Q6HPO PRN Administration SORE THROAT Piperacillin Sod/Tazobactam Sod 4.5 gm 08/06/16 02:00 08/07/16 10:02 Zosyn 4.5gm Ivpb (Pre-Docked) IVPB 4.5 gm Q8H-IV MANNY Administration Promethazine HCl 12.5 mg 08/05/16 19:03 Phenergan Injection - IVPB Q6H PRN NAUSEA AND/OR VOMITING ASSESSMENT/PLAN: 61 y/o man with HTN, HLD, NIDDM who presented with abdominal pain and constipation, found to have acute diverticulitis with perforation and intra- abdominal abscess now s/p ex-lap, partial colectomy, splenic flexure mobilization, hartmans procedure, descending colostomy, peritoneal washout and omentectomy, admitted to ICU for monitoring post-op. S/P ex lap: POD#2 -post op wound care -dressing changed today, wound clean, dry, -GI following -ID following - continue zosyn -monitor sxs of infection -pain control with SOLE TRIMMER -NPO -continuous IVF -Zofran 4 mg -hemodynamic monitoring - IV antihypertensives PRN -DC Yepez DM type 2; -monitor BGM HTN: hold for now Current smoker: -counseling GI PPX: -GI ppx DVT PPX -venodynes -Heparin SQ Disposition: ICU monitoring FULL CODE Problem List - Problems (1) Diabetes 1.5, managed as type 2 Code(s): E10.9 - TYPE 1 DIABETES MELLITUS WITHOUT COMPLICATIONS (2) Diverticulitis of intestine with perforation and abscess Code(s): K57.80 - DVTRCLI OF INTEST, PART UNSP, W PERF AND ABSCESS W/O BLEED Qualifiers: Diverticulitis site: large intestine Diverticulitis bleeding: without bleeding Qualified Code(s): K57.20 - Diverticulitis of large intestine with perforation and abscess without bleeding (3) Fecal peritonitis Code(s): K65.8 - OTHER PERITONITIS (4) Hypertension Code(s): I10 - ESSENTIAL (PRIMARY) HYPERTENSION (5) Perforated bowel Code(s): K63.1 - PERFORATION OF INTESTINE (NONTRAUMATIC) (6) Smoker Code(s): F17.200 - NICOTINE DEPENDENCE, UNSPECIFIED, UNCOMPLICATED Visit type - Emergency Visit Emergency Visit: Yes ED Registration Date: 08/03/16 Care time: The patient presented to the Emergency Department on the above date and was hospitalized for further evaluation of their emergent condition. - New Patient This patient is new to me today: No - Critical Care Critical Care patient: Yes Total Critical Care Time (in minutes): 40 Critical Care Statement: The care of this patient involved high complexity decision making to prevent further life threatening deterioration of the patient 's condition and/or to evalute & treat vital organ system(s) failure or risk of failure.
[2016-08-07] MEDS: HYDROmorphone *PCA* 10MG/50ML DISP.SYRIN PCA SCH (18:17)
[2016-08-07] MEDS: DEXTROSE 5%-LACTATED RINGERS 1,000 ML IV SCH (18:18)
[2016-08-08] MEDS: PIPERACILLIN/TAZOB 4.5 GM/100 ML PRE-DOCKED IVPB SCH ×3 (01:41→18:34)
--- NOTE | 2016-08-08 08:11 | PN ---
Progress Note (short form) - Note Progress Note: Anesthesia /pain Pt seen and examined S;Alert and awake, abd pain uses SAP ANALYST O: Vital Signs Temperature 98.6 F 08/08/16 06:00 Pulse Rate 73 08/08/16 06:17 Respiratory Rate 17 08/08/16 06:17 Blood Pressure 152/81 08/08/16 06:17 O2 Sat by Pulse Oximetry (%) 99 08/08/16 06:00 CBC, BMP 08/07/16 05:00 08/07/16 05:00 A/P:Current Active Problems Alcohol dependence (Acute) Diabetes 1.5, managed as type 2 (Acute) Diverticulitis of intestine with perforation and abscess (Acute) Fecal peritonitis (Acute) Hypertension (Acute) Perforated bowel (Acute) Smoker (Acute) s/p Arias's still NPO continue SAP ANALYST Ottoniel Coleman MD
--- NOTE | 2016-08-08 08:14 | PN ---
Progress Note (short form) - Note Progress Note: POD #3 complains of pain no fevers Vital Signs Period Temp Pulse Resp BP Sys/Najera Pulse Ox Last 24 Hr 98.3 F-99 F 73-90 14-21 137-166/62-94 93-99 +NGT cor-rrr llungs decreased bs at bases abd - firm, no ostomy output, dressing intact ext no edema CBC, BMP 08/07/16 05:00 08/07/16 05:00 Microbiology 08/03/16 22:53 Blood - Peripheral Venous Blood Culture - Preliminary NO GROWTH OBTAINED AFTER 96 HOURS, INCUBATION TO CONTINUE FOR 1 DAYS. 08/03/16 22:55 Blood - Peripheral Venous Blood Culture - Preliminary NO GROWTH OBTAINED AFTER 96 HOURS, INCUBATION TO CONTINUE FOR 1 DAYS. 08/05/16 11:49 Abscess Gram Stain - Final 08/05/16 11:49 Abscess Body Fluid Culture - Final Enterococcus Faecalis Enterobacter Sakazakii Pseudomonas Aeruginosa Enterobacter Cloacae 08/05/16 11:49 Abscess Anaerobic Culture - Final NO ANAEROBES WERE ISOLATED 08/05/16 18:37 Peritoneal Fluid Gram Stain - Final 08/05/16 18:37 Peritoneal Fluid Body Fluid Culture - Preliminary NO AEROBIC GROWTH, 24 HRS a/p POD #3 s/p ex lap and Arias's procedure- operative cultures polymicrobial, continue zosyn surgical f/u ongoing htn dm Problem List - Problems (1) Diverticulitis of intestine with perforation and abscess Code(s): K57.80 - DVTRCLI OF INTEST, PART UNSP, W PERF AND ABSCESS W/O BLEED Qualifiers: Diverticulitis site: large intestine Diverticulitis bleeding: without bleeding Qualified Code(s): K57.20 - Diverticulitis of large intestine with perforation and abscess without bleeding
[2016-08-08] MEDS ORDERED: PT OWN MED DRAWER 7, Y5N ONE ×2 (08:23→20:23)
[2016-08-08] MEDS: HYDROmorphone *PCA* 10MG/50ML DISP.SYRIN PCA SCH (08:50)
[2016-08-08] MEDS ORDERED: LORAZEPAM CARPU-JECT 2 MG/ML DISP.SYRIN IVPUSH ONE ×2 (09:00→10:24)
[2016-08-08] MEDS: PANTOPRAZOLE SODIUM 100 ML IVPB SCH (09:21)
[2016-08-08] MEDS ORDERED: LORAZEPAM CARPU-JECT 2 MG/ML DISP.SYRIN IVPUSH PRN (10:24)
--- NOTE | 2016-08-08 10:24 | PN ---
Progress Note (short form) - Note Progress Note: PULMONARY/CCM Pt seen and examined in the ICU. Confused and agitated today. Pulling out IVs, NGT. No fevers or chills. Last Vital Signs Temp Pulse Resp BP Pulse Ox 98.6 F 78 22 133/79 99 08/08/16 06:00 08/08/16 08:50 08/08/16 09:00 08/08/16 08:50 08/08/16 09:00 Intake & Output 08/05/16 08/06/16 08/07/16 08/08/16 23:59 23:59 23:59 23:59 Intake Total 5213 3800 3000 800 Output Total 610 1030 1570 420 Balance 4603 2770 1430 380 Weight 175 lb 3 oz 175 lb 3 oz Gen: confused Heart: RRR Lung: decreased breath sounds at the bases Abd: soft, nontender, +ostomy without output Ext: no edema CBC, BMP 08/07/16 05:00 08/07/16 05:00 Active Medications Heparin Sodium (Porcine) (Heparin -) 5,000 unit SQ BID [facility] Last Admin: 08/07/16 21:46 Dose: 5,000 unit Hydromorphone HCl (Dilaudid Neonatal Icu Coordinator -) 10 mg SWITCHBOARD OPERATOR SUPERVISOR SWITCHBOARD OPERATOR SUPERVISOR MANNY PRN Reason: Protocol Stop: 08/12/16 19:04 Last Admin: 08/08/16 08:50 Dose: 10 mg Hydromorphone HCl (Dilaudid Injection -) 1 mg IVPB Q4H PRN PRN Reason: PAIN Pantoprazole Sodium (Protonix 40mg Ivpb (Pre-Docked)) 100 mls @ 200 mls/hr IVPB DAILY [facility] Last Admin: 08/08/16 09:21 Dose: 200 mls/hr Dextrose/Lactated Ringer's (D5-Lr -) 1,000 mls @ 100 mls/hr IV ASDIR [facility] Last Admin: 08/07/16 18:18 Dose: 100 mls/hr Lorazepam (Ativan Injection -) 1 mg IVPUSH Q6H PRN PRN Reason: WITHDRAWAL(CONT SUBST) Ondansetron HCl (Zofran Injection) 4 mg IVPB Q6H PRN PRN Reason: NAUSEA Phenol/Menthol (Chloraseptic -) 1 spray MM Q6HPO PRN PRN Reason: SORE THROAT Last Admin: 08/06/16 17:53 Dose: 1 spray Piperacillin Sod/Tazobactam Sod (Zosyn 4.5gm Ivpb (Pre-Docked)) 4.5 gm IVPB Q8H -IV MANNY Last Admin: 08/08/16 09:20 Dose: 4.5 gm Promethazine HCl (Phenergan Injection -) 12.5 mg IVPB Q6H PRN PRN Reason: NAUSEA AND/OR VOMITING A/P Acute Perforated Diverticulitis Intra-abdominal Abscess/Feculent Peritonitis s/p ex-lap/Hartmans procedure/colostomy Sepsis HTN DM ?Alcohol Withdrawal - will start benzos PRN and vinicius restraint - continue antibiotics - pain control - incentive spirometry - NPO - IVF - monitor lytes - await return of bowel function - OOB to chair - DVT prophylaxis - dispo per surgery critical care time spent in reviewing chart, evaluating patient and formulating plan 35 min
--- NOTE | 2016-08-08 11:11 | PN ---
Progress Note (short form) - Note Progress Note: Pt seen/examined events noted. sedated now was pulling iv lines etc/ pulled ngt Vital Signs Temp 98.6 F 08/08/16 06:00 Pulse 78 08/08/16 08:50 Resp 22 08/08/16 09:00 BP 133/79 08/08/16 08:50 Pulse Ox 99 08/08/16 09:00 Intake & Output 08/07/16 08/07/16 08/08/16 11:59 23:59 11:59 Intake Total 1400 1600 800 Output Total 310 1260 420 Balance 1090 340 380 Weight 175 lb 3 oz Intake: IV 1200 1400 700 D5-Lr - 1,000 ml @ 100 1200 1400 700 mls/hr IV ASDIR [facility] Rx#: [id number] IVPB 200 200 100 Output: Gastric Drainage 0 15 Drainage 10 10 5 Left Abdomen 10 10 5 Urine 300 1250 400 Yepez 300 800 Void 450 400 Other: Voiding Method Indwelling Catheter Urinal Urinal Weight Measurement Method Built in [facility] Active Medications Heparin Sodium (Porcine) (Heparin -) 5,000 unit SQ BID [facility] Last Admin: 08/07/16 21:46 Dose: 5,000 unit Hydromorphone HCl (Dilaudid Director Systems -) 10 mg NUT PACKER NUT PACKER MANNY PRN Reason: Protocol Stop: 08/12/16 19:04 Last Admin: 08/08/16 08:50 Dose: 10 mg Hydromorphone HCl (Dilaudid Injection -) 1 mg IVPB Q4H PRN PRN Reason: PAIN Pantoprazole Sodium (Protonix 40mg Ivpb (Pre-Docked)) 100 mls @ 200 mls/hr IVPB DAILY [facility] Last Admin: 08/08/16 09:21 Dose: 200 mls/hr Dextrose/Lactated Ringer's (D5-Lr -) 1,000 mls @ 100 mls/hr IV ASDIR [facility] Last Admin: 08/07/16 18:18 Dose: 100 mls/hr Lorazepam (Ativan Injection -) 2 mg IVPUSH ONCE ONE Stop: 08/08/16 10:25 Last Admin: 08/08/16 10:29 Dose: 2 mg Lorazepam (Ativan Injection -) 2 mg IVPUSH Q6H PRN PRN Reason: WITHDRAWAL(CONT SUBST) Ondansetron HCl (Zofran Injection) 4 mg IVPB Q6H PRN PRN Reason: NAUSEA Phenol/Menthol (Chloraseptic -) 1 spray MM Q6HPO PRN PRN Reason: SORE THROAT Last Admin: 08/06/16 17:53 Dose: 1 spray Piperacillin Sod/Tazobactam Sod (Zosyn 4.5gm Ivpb (Pre-Docked)) 4.5 gm IVPB Q8H -IV MANNY Last Admin: 08/08/16 09:20 Dose: 4.5 gm Promethazine HCl (Phenergan Injection -) 12.5 mg IVPB Q6H PRN PRN Reason: NAUSEA AND/OR VOMITING CBC, BMP 08/07/16 05:00 08/07/16 05:00 PHYSICAL EXAMINATION: Constitutional: sedated . Cardiovascular: Yes: Regular Rate and Rhythm Respiratory: Yes: bilateral breath sounds Gastrointestinal: Yes: Soft. Quiet. Colostomy bag in place-- dressing present. Edema: No Psychiatric: Yes:was agitated - sedated now Problem List - Problems (1) Diverticulitis of intestine with perforation and abscess Code(s): K57.80 - DVTRCLI OF INTEST, PART UNSP, W PERF AND ABSCESS W/O BLEED Qualifiers: Diverticulitis site: large intestine Diverticulitis bleeding: without bleeding Qualified Code(s): K57.20 - Diverticulitis of large intestine with perforation and abscess without bleeding (2) Hypertension Code(s): I10 - ESSENTIAL (PRIMARY) HYPERTENSION (3) Smoker Code(s): F17.200 - NICOTINE DEPENDENCE, UNSPECIFIED, UNCOMPLICATED ASSESSMENT & PLAN: - s/p surgery POD #3 - likely DT s./ alcohol withdrawal - continue benzo prn. --keep npo -- continue close monitoring -- discussed with nursing staff. - vinicius for safety. will follow
--- NOTE | 2016-08-08 13:18 | PN ---
Progress Note, Physician - Current Medication List Current Medications: Active Medications Heparin Sodium (Porcine) (Heparin -) 5,000 unit SQ BID [facility] Last Admin: 08/07/16 21:46 Dose: 5,000 unit Hydromorphone HCl (Dilaudid Popcorn Candy Maker -) 10 mg BAG MACHINE HELPER BAG MACHINE HELPER MANNY PRN Reason: Protocol Stop: 08/12/16 19:04 Last Admin: 08/08/16 08:50 Dose: 10 mg Hydromorphone HCl (Dilaudid Injection -) 1 mg IVPB Q4H PRN PRN Reason: PAIN Pantoprazole Sodium (Protonix 40mg Ivpb (Pre-Docked)) 100 mls @ 200 mls/hr IVPB DAILY [facility] Last Admin: 08/08/16 09:21 Dose: 200 mls/hr Dextrose/Lactated Ringer's (D5-Lr -) 1,000 mls @ 100 mls/hr IV ASDIR [facility] Last Admin: 08/07/16 18:18 Dose: 100 mls/hr Lorazepam (Ativan Injection -) 2 mg IVPUSH Q6H PRN PRN Reason: WITHDRAWAL(CONT SUBST) Ondansetron HCl (Zofran Injection) 4 mg IVPB Q6H PRN PRN Reason: NAUSEA Phenol/Menthol (Chloraseptic -) 1 spray MM Q6HPO PRN PRN Reason: SORE THROAT Last Admin: 08/06/16 17:53 Dose: 1 spray Piperacillin Sod/Tazobactam Sod (Zosyn 4.5gm Ivpb (Pre-Docked)) 4.5 gm IVPB Q8H -IV MANNY Last Admin: 08/08/16 09:20 Dose: 4.5 gm Promethazine HCl (Phenergan Injection -) 12.5 mg IVPB Q6H PRN PRN Reason: NAUSEA AND/OR VOMITING - Objective Vital Signs: Vital Signs Temperature 98.6 F 08/08/16 06:00 Pulse Rate 78 08/08/16 08:50 Respiratory Rate 22 08/08/16 09:00 Blood Pressure 133/79 08/08/16 08:50 O2 Sat by Pulse Oximetry (%) 99 08/08/16 09:00 Labs: CBC, BMP 08/07/16 05:00 08/07/16 05:00 Problem List - Problems (1) Diverticulitis of intestine with perforation and abscess Code(s): K57.80 - DVTRCLI OF INTEST, PART UNSP, W PERF AND ABSCESS W/O BLEED Qualifiers: Diverticulitis site: large intestine Diverticulitis bleeding: without bleeding Qualified Code(s): K57.20 - Diverticulitis of large intestine with perforation and abscess without bleeding (2) Diabetes 1.5, managed as type 2 Code(s): E10.9 - TYPE 1 DIABETES MELLITUS WITHOUT COMPLICATIONS (3) Hypertension Code(s): I10 - ESSENTIAL (PRIMARY) HYPERTENSION Assessment/Plan Surgery: Wound is clean. Colostomy is pink, opened widely. He is in alcohol withdrawal,? DTs. WBC is normal. Hydrate, Librium, resume heparin, Continue antibiotics.
[2016-08-08] MEDS: DEXTROSE 5%-LACTATED RINGERS 1,000 ML IV SCH (18:30)
[2016-08-08] MEDS: HEPARIN NA (PORCINE) 5,000 UNITS/ML 1ML VIAL SQ SCH (22:14)
[2016-08-09] MEDS: PIPERACILLIN/TAZOB 4.5 GM/100 ML PRE-DOCKED IVPB SCH ×3 (02:25→17:46)
[2016-08-09] MEDS: DEXTROSE 5%-LACTATED RINGERS 1,000 ML IV SCH ×2 (05:07→17:28)
[2016-08-09 06:33] LABS: MCH 32.1 pg (25.7-33.7); MCHC 33.6 g/dl (32.0-35.9); MEAN CELL VOLUME 95.6 fl (80-96); PLATELET COUNT 246 K/MM3 (134-434); RDW 13.6 % (11.9-15.9); WHITE BLOOD COUNT 10.9 K/mm3 (4.0-10.0)
[2016-08-09 06:51] LABS: ALBUMIN 2.3 g/dl (3.4-5.0); ANION GAP 10 (8-16); BILIRUBIN,TOTAL 0.8 mg/dL (0.2-1.0); CALCIUM 8.2 mg/dL (8.5-10.1); CO2 27 mmol/L (21-32); CREATININE 0.4 mg/dL (0.7-1.3); GLUCOSE,RANDOM 127 mg/dL (74-106); MAGNESIUM 2.2 mg/dL (1.8-2.4); PHOSPHOROUS 2.4 mg/dL (2.5-4.9); SGOT/AST 21 U/L (15-37); SGPT/ALT 18 U/L (12-78); TOT PROT 5.5 g/dl (6.4-8.2)
[2016-08-09 06:52] LABS: ALK PHOS 69 U/L (45-117)
[2016-08-09 07:10] LABS: COCKROFT - GAULT 197.94
[2016-08-09 08:19] LABS: PLATELET ESTIMATE ADEQUATE (NORMAL)
[2016-08-09] MEDS: PANTOPRAZOLE SODIUM 100 ML IVPB SCH (10:16)
[2016-08-09] MEDS: HEPARIN NA (PORCINE) 5,000 UNITS/ML 1ML VIAL SQ SCH ×2 (10:16→21:42)
--- NOTE | 2016-08-09 10:18 | PN ---
Progress Note (short form) - Note Progress Note: Pt seen/ examined today. sitting in chair much better no shaking on questioning - denies any heavy drinking-- says only drinks socially - small amounts yesterday events - may be related to dlaudid ! denies pain. passing gas taking liquids orally. Vital Signs Temp 98.5 F 08/09/16 06:00 Pulse 80 08/09/16 06:00 Resp 20 08/09/16 09:00 BP 150/74 08/09/16 06:00 Pulse Ox 94 L 08/09/16 09:00 Intake & Output 08/08/16 08/08/16 08/09/16 11:59 23:59 11:59 Intake Total 800 1750 1000 Output Total 420 1100 1100 Balance 380 650 -100 Weight 157 lb 1.6 oz Intake: IV 700 1300 800 D5-Lr - 1,000 ml @ 057 996 1081 800 mls/hr IV ASDIR [facility] Rx#: [id number] IVPB 100 200 100 Oral 250 100 Output: Gastric Drainage 15 Drainage 5 Left Abdomen 5 Urine 400 1100 1100 Void 400 1100 1100 Other: Voiding Method Urinal Urinal Urinal # Unmeasured Voids Void 3 Bowel Movement No Weight Measurement Method Built in [facility] Active Medications Heparin Sodium (Porcine) (Heparin -) 5,000 unit SQ BID [facility] Last Admin: 08/09/16 10:16 Dose: 5,000 unit Pantoprazole Sodium (Protonix 40mg Ivpb (Pre-Docked)) 100 mls @ 200 mls/hr IVPB DAILY [facility] Last Admin: 08/09/16 10:16 Dose: 200 mls/hr Dextrose/Lactated Ringer's (D5-Lr -) 1,000 mls @ 100 mls/hr IV ASDIR [facility] Last Admin: 08/09/16 05:07 Dose: 100 mls/hr Lorazepam (Ativan Injection -) 2 mg IVPUSH Q6H PRN PRN Reason: WITHDRAWAL(CONT SUBST) Ondansetron HCl (Zofran Injection) 4 mg IVPB Q6H PRN PRN Reason: NAUSEA Phenol/Menthol (Chloraseptic -) 1 spray MM Q6HPO PRN PRN Reason: SORE THROAT Last Admin: 08/06/16 17:53 Dose: 1 spray Piperacillin Sod/Tazobactam Sod (Zosyn 4.5gm Ivpb (Pre-Docked)) 4.5 gm IVPB Q8H -IV MANNY Last Admin: 08/09/16 10:16 Dose: 4.5 gm Promethazine HCl (Phenergan Injection -) 12.5 mg IVPB Q6H PRN PRN Reason: NAUSEA AND/OR VOMITING CBC, BMP 08/09/16 05:20 08/09/16 05:20 PHYSICAL EXAMINATION: Constitutional: alert and awake-- sitting in chair Cardiovascular: Yes: Regular Rate and Rhythm Respiratory: Yes: bilateral breath sounds Gastrointestinal: Yes: Soft. Quiet. Colostomy bag in place-- dressing present. Edema: No Psychiatric: Yes:was agitated - sedated now Problem List - Problems (1) Diverticulitis of intestine with perforation and abscess Code(s): K57.80 - DVTRCLI OF INTEST, PART UNSP, W PERF AND ABSCESS W/O BLEED Qualifiers: Diverticulitis site: large intestine Diverticulitis bleeding: without bleeding Qualified Code(s): K57.20 - Diverticulitis of large intestine with perforation and abscess without bleeding (2) Hypertension Code(s): I10 - ESSENTIAL (PRIMARY) HYPERTENSION (3) Smoker Code(s): F17.200 - NICOTINE DEPENDENCE, UNSPECIFIED, UNCOMPLICATED ASSESSMENT & PLAN: - s/p surgery POD #4 - better - change pain meds - continue benzo prn. ---- continue close monitoring -- discussed with nursing staff also - will follow - cc time - 30 min .
--- NOTE | 2016-08-09 10:50 | PN ---
Progress Note (short form) - Note Progress Note: PULMONARY/CCM Pt seen and examined in the ICU. More calm, oriented today. at bedside. No fevers or chills. Does report gas forming in ostomy bag. Reports abdominal discomfort at incision site. Last Vital Signs Temp Pulse Resp BP Pulse Ox 98.5 F 80 20 150/74 94 L 08/09/16 06:00 08/09/16 06:00 08/09/16 09:00 08/09/16 06:00 08/09/16 09:00 Intake & Output 08/06/16 08/07/16 08/08/16 08/09/16 23:59 23:59 23:59 23:59 Intake Total 3800 3000 2550 1000 Output Total 1030 1570 1520 1100 Balance 2770 1430 1030 -100 Weight 175 lb 3 oz 175 lb 3 oz 157 lb 1.6 oz Gen: less confused Heart: RRR Lung: decreased breath sounds at the bases Abd: soft, nontender, +ostomy without output Ext: no edema CBC, BMP 08/09/16 05:20 08/09/16 05:20 Active Medications Heparin Sodium (Porcine) (Heparin -) 5,000 unit SQ BID [facility] Last Admin: 08/09/16 10:16 Dose: 5,000 unit Pantoprazole Sodium (Protonix 40mg Ivpb (Pre-Docked)) 100 mls @ 200 mls/hr IVPB DAILY [facility] Last Admin: 08/09/16 10:16 Dose: 200 mls/hr Dextrose/Lactated Ringer's (D5-Lr -) 1,000 mls @ 100 mls/hr IV ASDIR [facility] Last Admin: 08/09/16 05:07 Dose: 100 mls/hr Lorazepam (Ativan Injection -) 2 mg IVPUSH Q6H PRN PRN Reason: WITHDRAWAL(CONT SUBST) Ondansetron HCl (Zofran Injection) 4 mg IVPB Q6H PRN PRN Reason: NAUSEA Phenol/Menthol (Chloraseptic -) 1 spray MM Q6HPO PRN PRN Reason: SORE THROAT Last Admin: 08/06/16 17:53 Dose: 1 spray Piperacillin Sod/Tazobactam Sod (Zosyn 4.5gm Ivpb (Pre-Docked)) 4.5 gm IVPB Q8H -IV MANNY Last Admin: 08/09/16 10:16 Dose: 4.5 gm Promethazine HCl (Phenergan Injection -) 12.5 mg IVPB Q6H PRN PRN Reason: NAUSEA AND/OR VOMITING A/P Acute Perforated Diverticulitis Intra-abdominal Abscess/Feculent Peritonitis s/p ex-lap/Hartmans procedure/colostomy Sepsis HTN DM ?Alcohol Withdrawal - continue antibiotics - pain control - incentive spirometry - PO per surgery - IVF - monitor lytes - await return of bowel function - OOB to chair - DVT prophylaxis - dispo per surgery critical care time spent in reviewing chart, evaluating patient and formulating plan 35 min
[2016-08-09] MEDS ORDERED: LORAZEPAM CARPU-JECT 2 MG/ML DISP.SYRIN IVPUSH PRN (10:51)
--- NOTE | 2016-08-09 13:54 | PN ---
Progress Note (short form) - Note Progress Note: POD #4 less pain, much less confused resting comfortably today Vital Signs Period Temp Pulse Resp BP Sys/Najera Pulse Ox Last 24 Hr 98.3 F-100.5 F 68-97 1-22 123-171/59-98 94-94 cor-rrr llungs decreased bs at bases abd distended, dressing intact +ostomy, +BM ext no edema CBC, BMP 08/09/16 05:20 08/09/16 05:20 Microbiology 08/03/16 22:53 Blood - Peripheral Venous Blood Culture - Final NO GROWTH AFTER 5 DAYS INCUBATION 08/03/16 22:55 Blood - Peripheral Venous Blood Culture - Final NO GROWTH AFTER 5 DAYS INCUBATION 08/05/16 11:49 Abscess Gram Stain - Final 08/05/16 11:49 Abscess Body Fluid Culture - Final Enterococcus Faecalis Enterobacter Sakazakii Pseudomonas Aeruginosa Enterobacter Cloacae 08/05/16 11:49 Abscess Anaerobic Culture - Final NO ANAEROBES WERE ISOLATED 08/05/16 18:37 Peritoneal Fluid Gram Stain - Final 08/05/16 18:37 Peritoneal Fluid Body Fluid Culture - Final NO GROWTH OF AEROBIC ORGANISMS AFTER 48 HOURS INCUBATION 08/05/16 18:37 Peritoneal Fluid Anaerobic Culture - Final NO ANAEROBES WERE ISOLATED a/p POD #4 s/p ex lap and Arias's procedure- peritonitis operative cultures polymicrobial, continue zosyn surgical f/u ongoing htn dm Problem List - Problems (1) Diverticulitis of intestine with perforation and abscess Code(s): K57.80 - DVTRCLI OF INTEST, PART UNSP, W PERF AND ABSCESS W/O BLEED Qualifiers: Diverticulitis site: large intestine Diverticulitis bleeding: without bleeding Qualified Code(s): K57.20 - Diverticulitis of large intestine with perforation and abscess without bleeding
--- NOTE | 2016-08-09 15:42 | EKG ---
Test Reason : Blood Pressure : / mmHG Vent. Rate : 070 BPM Atrial Rate : 070 BPM P-R Int : 126 ms QRS Dur : 096 ms QT Int : 418 ms P-R-T Axes : 010 -04 136 degrees QTc Int : 451 ms NORMAL SINUS RHYTHM INCOMPLETE RIGHT BUNDLE BRANCH BLOCK LEFT VENTRICULAR HYPERTROPHY WITH REPOLARIZATION ABNORMALITY ABNORMAL ECG WHEN COMPARED WITH ECG OF 10-SEP-2012 09:57, T WAVE INVERSION NOW EVIDENT IN INFERIOR LEADS T WAVE INVERSION MORE EVIDENT IN LATERAL LEADS CLINICAL CORRELATION IS RECOMMENDED Confirmed by MICAH DALTON, BRANDON ([id number]) on 08/09/2016 3:41:59 PM Referred By: Confirmed By:BRANDON OBRIEN MD
[2016-08-09] MEDS: oxyCODONE HCL 5 MG TABLET PO PRN ×2 (17:25→21:42)
[2016-08-09] MEDS: HYDROmorphone *PCA* 10MG/50ML DISP.SYRIN PCA SCH (18:31)
[2016-08-10] MEDS: PIPERACILLIN/TAZOB 4.5 GM/100 ML PRE-DOCKED IVPB SCH ×3 (01:20→17:38)
[2016-08-10] MEDS: oxyCODONE HCL 5 MG TABLET PO PRN ×6 (05:42→23:45)
[2016-08-10 06:13] LABS: MCHC 33.5 g/dl (32.0-35.9); MEAN CELL VOLUME 95.5 fl (80-96); PLATELET COUNT 291 K/MM3 (134-434); RDW 13.9 % (11.9-15.9); WHITE BLOOD COUNT 10.5 K/mm3 (4.0-10.0)
[2016-08-10 07:12] LABS: ALBUMIN 2.1 g/dl (3.4-5.0); ALK PHOS 93 U/L (45-117); ANION GAP 9 (8-16); BILIRUBIN,TOTAL 0.7 mg/dL (0.2-1.0); CALCIUM 7.4 mg/dL (8.5-10.1); CO2 28 mmol/L (21-32); CREATININE 0.4 mg/dL (0.7-1.3); GLUCOSE,RANDOM 114 mg/dL (74-106); MAGNESIUM 2.3 mg/dL (1.8-2.4); PHOSPHOROUS 3.5 mg/dL (2.5-4.9); SGOT/AST 35 U/L (15-37); SGPT/ALT 23 U/L (12-78); TOT PROT 5.2 g/dl (6.4-8.2)
--- NOTE | 2016-08-10 07:49 | PN ---
Progress Note, Physician Chief Complaint: ID Elizabeth Day 5 Post op NAD - Current Medication List Current Medications: Active Medications Heparin Sodium (Porcine) (Heparin -) 5,000 unit SQ BID [facility] Last Admin: 08/09/16 21:42 Dose: 5,000 unit Pantoprazole Sodium (Protonix 40mg Ivpb (Pre-Docked)) 100 mls @ 200 mls/hr IVPB DAILY [facility] Last Admin: 08/09/16 10:16 Dose: 200 mls/hr Dextrose/Lactated Ringer's (D5-Lr -) 1,000 mls @ 75 mls/hr IV ASDIR [facility] Last Admin: 08/09/16 17:28 Dose: 75 mls/hr Lorazepam (Ativan Injection -) 1 mg IVPUSH Q6H PRN PRN Reason: WITHDRAWAL(CONT SUBST) Ondansetron HCl (Zofran Injection) 4 mg IVPB Q6H PRN PRN Reason: NAUSEA Oxycodone HCl (Roxicodone -) 5 mg PO Q4H PRN PRN Reason: PAIN Last Admin: 08/10/16 05:42 Dose: 5 mg Phenol/Menthol (Chloraseptic -) 1 spray MM Q6HPO PRN PRN Reason: SORE THROAT Last Admin: 08/06/16 17:53 Dose: 1 spray Piperacillin Sod/Tazobactam Sod (Zosyn 4.5gm Ivpb (Pre-Docked)) 4.5 gm IVPB Q8H -IV MANNY Last Admin: 08/10/16 01:20 Dose: 4.5 gm Promethazine HCl (Phenergan Injection -) 12.5 mg IVPB Q6H PRN PRN Reason: NAUSEA AND/OR VOMITING - Objective Vital Signs: Vital Signs Temperature 98.2 F 08/10/16 05:33 Pulse Rate 68 08/10/16 05:33 Respiratory Rate 18 08/10/16 05:33 Blood Pressure 146/76 08/10/16 05:33 O2 Sat by Pulse Oximetry (%) 96 08/09/16 22:00 Constitutional: Yes: Well Nourished, No Distress Neck: Yes: WNL, Supple Cardiovascular: Yes: Regular Rate and Rhythm, S1, S2 Respiratory: Yes: WNL, Regular, CTA Bilaterally Gastrointestinal: Yes: Soft, Distention Edema: No Labs: CBC, BMP 08/10/16 05:10 08/10/16 05:10 Problem List - Problems (1) Perforated bowel Code(s): K63.1 - PERFORATION OF INTESTINE (NONTRAUMATIC) (2) Fecal peritonitis Code(s): K65.8 - OTHER PERITONITIS (3) Alcohol dependence Code(s): F10.20 - ALCOHOL DEPENDENCE, UNCOMPLICATED Qualifiers: Substance use status: uncomplicated Qualified Code(s): F10.20 - Alcohol dependence, uncomplicated (4) Diabetes 1.5, managed as type 2 Code(s): E10.9 - TYPE 1 DIABETES MELLITUS WITHOUT COMPLICATIONS Assessment/Plan Microbiology 08/05/16 11:49 Abscess Gram Stain - Final 08/05/16 11:49 Abscess Anaerobic Culture - Final Enterococcus Faecalis Enterobacter Sakazakii Pseudomonas Aeruginosa Enterobacter Cloacae NO ANAEROBES WERE ISOLATED Laboratory Tests 08/10/16 08/10/16 05:10 05:10 WBC 10.5 H Hgb 10.1 L Hct 30.0 L Plt Count 291 BUN 5 L D Creatinine 0.4 L Assessment Post op day 5 Arias Fecal peritonitis Plan Continue antibiotic as ordered Harika DALTON
[2016-08-10 08:54] LABS: PLATELET ESTIMATE ADEQUATE (NORMAL)
[2016-08-10] MEDS: DEXTROSE 5%-LACTATED RINGERS 1,000 ML IV SCH ×3 (09:00→18:44)
[2016-08-10] MEDS: PANTOPRAZOLE SODIUM 100 ML IVPB SCH (09:03)
[2016-08-10] MEDS: HEPARIN NA (PORCINE) 5,000 UNITS/ML 1ML VIAL SQ SCH ×2 (09:03→21:23)
--- NOTE | 2016-08-10 11:34 | PN ---
Progress Note (short form) - Note Progress Note: No acute events Pain controlled Placed on a soft diet Vital Signs Period Temp Pulse Resp BP Sys/Najera Pulse Ox Last 24 Hr 97.5 F-99 F 68-78 16-18 116-165/67-89 96-97 Abd soft, midline wound packed, ostomy pink with liquid stool CBC, BMP 08/10/16 05:10 08/10/16 05:10 Daily wound packing Antibiotics OOB Plan per Dr Oleary
--- NOTE | 2016-08-10 11:52 | PN ---
Teaching Attending Note Name of Resident: Maria Ines Soriano ATTENDING PHYSICIAN STATEMENT I saw and evaluated the patient. I reviewed the resident's note and discussed the case with the resident. I agree with the resident's findings and plan as documented. SUBJECTIVE: Pt seen and examined in the ICU. Pain better controlled. Tolerating PO. Ostomy with stool output. No fevers or chills. OBJECTIVE: Last Vital Signs Temp Pulse Resp BP Pulse Ox 98.0 F 73 17 150/78 97 08/10/16 10:00 08/10/16 10:00 08/10/16 10:00 08/10/16 10:00 08/10/16 08:00 Intake & Output 08/07/16 08/08/16 08/09/16 08/10/16 23:59 23:59 23:59 23:59 Intake Total 3000 2550 4050 1265 Output Total 1570 1520 1900 1100 Balance 1430 1030 2150 165 Weight 175 lb 3 oz 157 lb 1.6 oz 152 lb 11.2 oz Gen: less confused Heart: RRR Lung: decreased breath sounds at the bases Abd: softly distended, +ostomy with gas output Ext: no edema CBC, BMP 08/10/16 05:10 08/10/16 05:10 Active Medications Heparin Sodium (Porcine) (Heparin -) 5,000 unit SQ BID [facility] Last Admin: 08/10/16 09:03 Dose: 5,000 unit Pantoprazole Sodium (Protonix 40mg Ivpb (Pre-Docked)) 100 mls @ 200 mls/hr IVPB DAILY [facility] Last Admin: 08/10/16 09:03 Dose: 200 mls/hr Dextrose/Lactated Ringer's (D5-Lr -) 1,000 mls @ 75 mls/hr IV ASDIR [facility] Last Admin: 08/10/16 09:00 Dose: 75 mls/hr Lorazepam (Ativan Injection -) 1 mg IVPUSH Q6H PRN PRN Reason: WITHDRAWAL(CONT SUBST) Ondansetron HCl (Zofran Injection) 4 mg IVPB Q6H PRN PRN Reason: NAUSEA Oxycodone HCl (Roxicodone -) 5 mg PO Q3H PRN PRN Reason: PAIN Last Admin: 08/10/16 09:00 Dose: 5 mg Phenol/Menthol (Chloraseptic -) 1 spray MM Q6HPO PRN PRN Reason: SORE THROAT Last Admin: 08/06/16 17:53 Dose: 1 spray Piperacillin Sod/Tazobactam Sod (Zosyn 4.5gm Ivpb (Pre-Docked)) 4.5 gm IVPB Q8H -IV [facility] Last Admin: 08/10/16 09:03 Dose: 4.5 gm Promethazine HCl (Phenergan Injection -) 12.5 mg IVPB Q6H PRN PRN Reason: NAUSEA AND/OR VOMITING ASSESSMENT AND PLAN: Acute Perforated Diverticulitis Intra-abdominal Abscess/Feculent Peritonitis s/p ex-lap/Hartmans procedure/colostomy Sepsis HTN DM ?Alcohol Withdrawal - continue antibiotics - pain control - incentive spirometry - PO per surgery - IVF - monitor lytes - OOB to chair - DVT prophylaxis - can monitor on surgical floor
--- NOTE | 2016-08-10 12:15 | PN ---
Progress Note (short form) - Note Progress Note: Progress Note: SUBJECTIVE: Patient seen and examined in the ICU. pod # 5 sitting in chair feels better still having pain passing bas- no bm yet surgical f/u noted afebrile OBJECTIVE: Vital Signs 08/10/16 08/10/16 08/10/16 02:00 04:00 05:33 Temperature 98.8 F 98.2 F Pulse Rate 69 69 68 Respiratory 18 17 18 Rate Blood Pressure 145/73 154/75 146/76 O2 Sat by Pulse Oximetry (%) 08/10/16 08:00 Temperature 98.1 F Pulse Rate 69 Respiratory 18 Rate Blood Pressure 157/84 O2 Sat by Pulse 97 Oximetry (%) Intake & Output 08/09/16 08/10/16 08/10/16 23:59 07:59 15:59 Intake Total 750 825 440 Output Total 400 800 Balance 350 25 440 Weight 69.264 kg Intake: IV 300 525 D5-Lr - 1,000 ml @ 75 mls 300 525 /hr IV ASDIR [facility] Rx#: [id number] IVPB 100 200 Oral 450 200 240 Output: Drainage 0 Left Abdomen 0 Urine 400 800 Void 400 800 Other: Voiding Method Urinal Urinal Bowel Movement No Weight Measurement Method Built in [facility] Active Medications Heparin Sodium (Porcine) (Heparin -) 5,000 unit SQ BID [facility] Last Admin: 08/10/16 09:03 Dose: 5,000 unit Pantoprazole Sodium (Protonix 40mg Ivpb (Pre-Docked)) 100 mls @ 200 mls/hr IVPB DAILY [facility] Last Admin: 08/10/16 09:03 Dose: 200 mls/hr Dextrose/Lactated Ringer's (D5-Lr -) 1,000 mls @ 75 mls/hr IV ASDIR [facility] Last Admin: 08/10/16 09:00 Dose: 75 mls/hr Lorazepam (Ativan Injection -) 1 mg IVPUSH Q6H PRN PRN Reason: WITHDRAWAL(CONT SUBST) Ondansetron HCl (Zofran Injection) 4 mg IVPB Q6H PRN PRN Reason: NAUSEA Oxycodone HCl (Roxicodone -) 5 mg PO Q3H PRN PRN Reason: PAIN Last Admin: 08/10/16 09:00 Dose: 5 mg Phenol/Menthol (Chloraseptic -) 1 spray MM Q6HPO PRN PRN Reason: SORE THROAT Last Admin: 08/06/16 17:53 Dose: 1 spray Piperacillin Sod/Tazobactam Sod (Zosyn 4.5gm Ivpb (Pre-Docked)) 4.5 gm IVPB Q8H -IV [facility] Last Admin: 08/10/16 09:03 Dose: 4.5 gm Promethazine HCl (Phenergan Injection -) 12.5 mg IVPB Q6H PRN PRN Reason: NAUSEA AND/OR VOMITING CBC, BMP 08/10/16 05:10 08/10/16 05:10 PHYSICAL EXAMINATION: Constitutional: alert and awake-- sitting in chair Cardiovascular: Yes: Regular Rate and Rhythm Respiratory: Yes: bilateral breath sounds Gastrointestinal: Yes: Soft. Quiet. Colostomy bag in place-- dressing present. Edema: No Psychiatric: Yes:alert and awake . Problem List - Problems (1) Diverticulitis of intestine with perforation and abscess Code(s): K57.80 - DVTRCLI OF INTEST, PART UNSP, W PERF AND ABSCESS W/O BLEED Qualifiers: Diverticulitis site: large intestine Diverticulitis bleeding: without bleeding Qualified Code(s): K57.20 - Diverticulitis of large intestine with perforation and abscess without bleeding (2) Hypertension Code(s): I10 - ESSENTIAL (PRIMARY) HYPERTENSION (3) Smoker Code(s): F17.200 - NICOTINE DEPENDENCE, UNSPECIFIED, UNCOMPLICATED ASSESSMENT & PLAN: - Status post surgery POD #5 - continue abx - pain control - Continue benzo PRN. - Continue close monitoring - Discussed with nursing staff also as well as medical assembly - can be transferred to surgical floor - if ok with surgery. - Will follow
--- NOTE | 2016-08-10 16:06 | PN ---
Progress Note, Physician - Current Medication List Current Medications: Active Medications Heparin Sodium (Porcine) (Heparin -) 5,000 unit SQ BID [facility] Last Admin: 08/10/16 09:03 Dose: 5,000 unit Pantoprazole Sodium (Protonix 40mg Ivpb (Pre-Docked)) 100 mls @ 200 mls/hr IVPB DAILY [facility] Last Admin: 08/10/16 09:03 Dose: 200 mls/hr Dextrose/Lactated Ringer's (D5-Lr -) 1,000 mls @ 75 mls/hr IV ASDIR [facility] Last Admin: 08/10/16 13:45 Dose: Not Given Lorazepam (Ativan Injection -) 1 mg IVPUSH Q6H PRN PRN Reason: WITHDRAWAL(CONT SUBST) Ondansetron HCl (Zofran Injection) 4 mg IVPB Q6H PRN PRN Reason: NAUSEA Oxycodone HCl (Roxicodone -) 5 mg PO Q3H PRN PRN Reason: PAIN Last Admin: 08/10/16 12:30 Dose: 5 mg Phenol/Menthol (Chloraseptic -) 1 spray MM Q6HPO PRN PRN Reason: SORE THROAT Last Admin: 08/06/16 17:53 Dose: 1 spray Piperacillin Sod/Tazobactam Sod (Zosyn 4.5gm Ivpb (Pre-Docked)) 4.5 gm IVPB Q8H -IV [facility] Last Admin: 08/10/16 09:03 Dose: 4.5 gm Promethazine HCl (Phenergan Injection -) 12.5 mg IVPB Q6H PRN PRN Reason: NAUSEA AND/OR VOMITING - Objective Vital Signs: Vital Signs Temperature 98.1 F 08/10/16 14:00 Pulse Rate 71 08/10/16 14:00 Respiratory Rate 17 08/10/16 14:00 Blood Pressure 142/68 08/10/16 14:00 O2 Sat by Pulse Oximetry (%) 97 08/10/16 08:00 Labs: CBC, BMP 08/10/16 05:10 08/10/16 05:10 Problem List - Problems (1) Diverticulitis of intestine with perforation and abscess Code(s): K57.80 - DVTRCLI OF INTEST, PART UNSP, W PERF AND ABSCESS W/O BLEED Qualifiers: Diverticulitis site: large intestine Diverticulitis bleeding: without bleeding Qualified Code(s): K57.20 - Diverticulitis of large intestine with perforation and abscess without bleeding (2) Diabetes 1.5, managed as type 2 Code(s): E10.9 - TYPE 1 DIABETES MELLITUS WITHOUT COMPLICATIONS (3) Hypertension Code(s): I10 - ESSENTIAL (PRIMARY) HYPERTENSION Assessment/Plan Surgery: Colostomy is functioning, Out of bed , afebrile, Wound is clean. WBC is normal. Continue antibiotics.
--- NOTE | 2016-08-10 18:32 | PN ---
Physical Exam: SUBJECTIVE: Patient seen and examined. He is still complaining of abdominal pain. No NG tube, no BMs, only flatus. No overnight events. OBJECTIVE: Vital Signs Period Temp Pulse Resp BP Sys/Najera Pulse Ox Last 24 Hr 97.9 F-99 F 68-75 16-18 116-165/68-89 96-97 GENERAL: The patient is awake, alert, and fully oriented, in moderate distress. HEAD: Normal with no signs of trauma. EYES: extraocular movements intact, sclera anicteric, conjunctiva clear. ENT: oropharynx clear without exudates, dry mucous membranes. NECK: Trachea midline, full range of motion, supple. LUNGS:clear to auscultation bilaterally, no wheezes, no crackles, no accessory muscle use. HEART: Regular rate and rhythm, S1, S2 without murmur, rub or gallop. ABDOMEN: Soft, tender in all 4 q, distended, hypooactive bowel sounds, no guarding, no rebound, no hepatosplenomegaly, no masses, healing longitudinal wound, dry, kelsi applied, covered with dressing. EXTREMITIES:no edema. NEUROLOGICAL: No facial asymmetry. Normal speech, gait not observed. PSYCH: Normal mood, normal affect. SKIN: Warm, dry, normal turgor, no rashes or lesions noted Laboratory Results - last 24 hr 08/09/16 08/10/16 08/10/16 22:01 05:10 05:10 WBC 10.5 H RBC 3.14 L Hgb 10.1 L Hct 30.0 L MCV 95.5 MCHC 33.5 RDW 13.9 Plt Count 291 MPV 10.0 Neutrophils % 59.0 Lymphocytes % 15.0 Monocytes % 4.0 Eosinophils % 10.0 H D Basophils % 0.0 Band Neutrophils 9.0 D Nucleated RBCs 2 H Differential Comment Manual diff done Reactive Lymphocytes 1 Plasma Cells 2 Platelet Estimate Adequate Sodium 143 Potassium 3.5 Chloride 106 Carbon Dioxide 28 Anion Gap 9 BUN 5 L D Creatinine 0.4 L Creat Clearance w eGFR > 60 POC Glucometer [phone] Random Glucose 114 H Calcium 7.4 L Phosphorus 3.5 D Magnesium 2.3 Total Bilirubin 0.7 AST 35 D ALT 23 D Alkaline Phosphatase 93 D Total Protein 5.2 L Albumin 2.1 L 08/10/16 08/10/16 08/10/16 05:32 11:12 17:32 WBC RBC Hgb Hct MCV MCHC RDW Plt Count MPV Neutrophils % Lymphocytes % Monocytes % Eosinophils % Basophils % Band Neutrophils Nucleated RBCs Differential Comment Reactive Lymphocytes Plasma Cells Platelet Estimate Sodium Potassium Chloride Carbon Dioxide Anion Gap BUN Creatinine Creat Clearance w eGFR POC Glucometer [phone] 132.27228 Random Glucose Calcium Phosphorus Magnesium Total Bilirubin AST ALT Alkaline Phosphatase Total Protein Albumin Active Medications Generic Name Dose Route Start Last Admin Trade Name Freq PRN Reason Stop Dose Admin Heparin Sodium (Porcine) 5,000 unit 08/07/16 10:00 08/10/16 09:03 Heparin - SQ 5,000 unit BID MANNY Administration Pantoprazole Sodium 100 mls @ 200 mls/hr 08/06/16 10:00 08/10/16 09:03 Protonix 40mg Ivpb (Pre-Docked) IVPB 200 mls/hr DAILY MANNY Administration Dextrose/Lactated Ringer's 1,000 mls @ 75 mls/hr 08/09/16 13:45 08/10/16 13:45 D5-Lr - IV Not Given ASDIR MANNY Lorazepam 1 mg 08/09/16 10:51 Ativan Injection - IVPUSH Q6H PRN WITHDRAWAL(CONT SUBST) Ondansetron HCl 4 mg 08/05/16 19:15 Zofran Injection IVPB Q6H PRN NAUSEA Oxycodone HCl 5 mg 08/10/16 08:48 08/10/16 17:38 Roxicodone - PO 5 mg Q3H PRN Administration PAIN Phenol/Menthol 1 spray 08/06/16 16:47 08/06/16 17:53 Chloraseptic - MM 1 spray Q6HPO PRN Administration SORE THROAT Piperacillin Sod/Tazobactam Sod 4.5 gm 08/06/16 02:00 08/10/16 17:38 Zosyn 4.5gm Ivpb (Pre-Docked) IVPB 4.5 gm Q8H-IV MANNY Administration Promethazine HCl 12.5 mg 08/05/16 19:03 Phenergan Injection - IVPB Q6H PRN NAUSEA AND/OR VOMITING ASSESSMENT/PLAN: 61 y/o man with HTN, HLD, NIDDM who presented with abdominal pain and constipation, found to have acute diverticulitis with perforation and intra- abdominal abscess now s/p ex-lap, partial colectomy, splenic flexure mobilization, hartmans procedure, descending colostomy, peritoneal washout and omentectomy, admitted to ICU for monitoring post-op. S/P ex lap: POD#5 -post op wound care -dressing applied, wound clean, dry -GI following -ID following - continue zosyn -pain control with Roxicodone -regular diet -continuous IVF -Zofran 4 mg -hemodynamic monitoring - IV antihypertensives PRN -DC Yepez DM type 2; -monitor BGM HTN: hold for now Current smoker: -counseling GI PPX: -GI ppx DVT PPX -venodynes -Heparin SQ Disposition: can be transferred to med surg FULL CODE Problem List - Problems (1) Diabetes 1.5, managed as type 2 Code(s): E10.9 - TYPE 1 DIABETES MELLITUS WITHOUT COMPLICATIONS (2) Diverticulitis of intestine with perforation and abscess Code(s): K57.80 - DVTRCLI OF INTEST, PART UNSP, W PERF AND ABSCESS W/O BLEED Qualifiers: Diverticulitis site: large intestine Diverticulitis bleeding: without bleeding Qualified Code(s): K57.20 - Diverticulitis of large intestine with perforation and abscess without bleeding (3) Fecal peritonitis Code(s): K65.8 - OTHER PERITONITIS (4) Hypertension Code(s): I10 - ESSENTIAL (PRIMARY) HYPERTENSION (5) Perforated bowel Code(s): K63.1 - PERFORATION OF INTESTINE (NONTRAUMATIC) (6) Smoker Code(s): F17.200 - NICOTINE DEPENDENCE, UNSPECIFIED, UNCOMPLICATED Visit type - Emergency Visit Emergency Visit: Yes ED Registration Date: 08/03/16 Care time: The patient presented to the Emergency Department on the above date and was hospitalized for further evaluation of their emergent condition. - New Patient This patient is new to me today: No - Critical Care Critical Care patient: Yes Total Critical Care Time (in minutes): 45 Critical Care Statement: The care of this patient involved high complexity decision making to prevent further life threatening deterioration of the patient 's condition and/or to evalute & treat vital organ system(s) failure or risk of failure.
[2016-08-10] MEDS ORDERED: PROMETHAZINE HCL 25 MG/1 ML VIAL IVPB PRN (18:44)
[2016-08-10] MEDS ORDERED: ONDANSETRON 4 MG/2 ML VIAL IVPB PRN (18:44)
[2016-08-10] MEDS ORDERED: LORAZEPAM CARPU-JECT 2 MG/ML DISP.SYRIN IVPUSH PRN (18:44)
[2016-08-10] MEDS ORDERED: PHENOL 177 ML SPRAY BOTTLE MM PRN (18:44)
[2016-08-11] MEDS: DEXTROSE 5%-LACTATED RINGERS 1,000 ML IV SCH ×3 (00:04→20:22)
[2016-08-11] MEDS: PIPERACILLIN/TAZOB 4.5 GM/100 ML PRE-DOCKED IVPB SCH ×3 (01:32→17:11)
[2016-08-11] MEDS: oxyCODONE HCL 5 MG TABLET PO PRN ×7 (03:41→22:10)
[2016-08-11 06:28] LABS: MCH 31.8 pg (25.7-33.7); MCHC 33.2 g/dl (32.0-35.9); MEAN CELL VOLUME 95.8 fl (80-96); MEAN PLT VOLUME 9.8 fl (7.5-11.1); PLATELET COUNT 356 K/MM3 (134-434); RDW 13.7 % (11.9-15.9); WHITE BLOOD COUNT 11.4 K/mm3 (4.0-10.0)
[2016-08-11 06:54] LABS: ALBUMIN 2.5 g/dl (3.4-5.0); ANION GAP 9 (8-16); CALCIUM 8.3 mg/dL (8.5-10.1); CO2 29 mmol/L (21-32); GLUCOSE,RANDOM 110 mg/dL (74-106)
[2016-08-11 06:59] LABS: ALK PHOS 123 U/L (45-117); BILIRUBIN,TOTAL 0.9 mg/dL (0.2-1.0); COCKROFT - GAULT 193; CREATININE 0.4 mg/dL (0.7-1.3); SGOT/AST 37 U/L (15-37); SGPT/ALT 35 U/L (12-78); TOT PROT 6.4 g/dl (6.4-8.2)
[2016-08-11] MEDS ORDERED: PT OWN MED DRAWER 7, Y5N ONE ×2 (08:18→22:08)
[2016-08-11] MEDS: HEPARIN NA (PORCINE) 5,000 UNITS/ML 1ML VIAL SQ SCH ×2 (09:14→21:06)
[2016-08-11] MEDS: PANTOPRAZOLE SODIUM 100 ML IVPB SCH (09:14)
--- NOTE | 2016-08-11 10:06 | PN ---
Progress Note (short form) - Note Progress Note: POD #6 feels well, eating no vomiting Vital Signs Period Temp Pulse Resp BP Sys/Najera Pulse Ox Last 24 Hr 97.8 F-98.4 F 66-78 17-20 138-165/64-88 98-98 cor-rrr lungs decreased bs at bases abd soft,nt +ostomy function dressing intact ext no edema CBC, BMP 08/11/16 05:15 08/11/16 05:15 Microbiology 08/03/16 22:53 Blood - Peripheral Venous Blood Culture - Final NO GROWTH AFTER 5 DAYS INCUBATION 08/03/16 22:55 Blood - Peripheral Venous Blood Culture - Final NO GROWTH AFTER 5 DAYS INCUBATION 08/05/16 11:49 Abscess Gram Stain - Final 08/05/16 11:49 Abscess Body Fluid Culture - Final Enterococcus Faecalis Enterobacter Sakazakii Pseudomonas Aeruginosa Enterobacter Cloacae 08/05/16 11:49 Abscess Anaerobic Culture - Final NO ANAEROBES WERE ISOLATED 08/05/16 18:37 Peritoneal Fluid Gram Stain - Final 08/05/16 18:37 Peritoneal Fluid Body Fluid Culture - Final NO GROWTH OF AEROBIC ORGANISMS AFTER 48 HOURS INCUBATION 08/05/16 18:37 Peritoneal Fluid Anaerobic Culture - Final NO ANAEROBES WERE ISOLATED a/p POD #6 s/p ex lap and Arias's procedure- fecal peritonitis operative cultures polymicrobial, continue zosyn encourage incentive spirometry (somker), encourage OOB and ambulation surgical f/u ongoing-d/w Dr Oleary htn dm Problem List - Problems (1) Diverticulitis of intestine with perforation and abscess Code(s): K57.80 - DVTRCLI OF INTEST, PART UNSP, W PERF AND ABSCESS W/O BLEED Qualifiers: Diverticulitis site: large intestine Diverticulitis bleeding: without bleeding Qualified Code(s): K57.20 - Diverticulitis of large intestine with perforation and abscess without bleeding
--- NOTE | 2016-08-11 10:55 | PN ---
Progress Note, Physician Chief Complaint: able to eat PO colostomy functioning No distress - Current Medication List Current Medications: Active Medications Heparin Sodium (Porcine) (Heparin -) 5,000 unit SQ BID [facility] Last Admin: 08/11/16 09:14 Dose: 5,000 unit Dextrose/Lactated Ringer's (D5-Lr -) 1,000 mls @ 75 mls/hr IV ASDIR [facility] Last Admin: 08/11/16 00:04 Dose: 75 mls/hr Pantoprazole Sodium (Protonix 40mg Ivpb (Pre-Docked)) 100 mls @ 200 mls/hr IVPB DAILY [facility] Last Admin: 08/11/16 09:14 Dose: 200 mls/hr Lorazepam (Ativan Injection -) 1 mg IVPUSH Q6H PRN PRN Reason: WITHDRAWAL(CONT SUBST) Ondansetron HCl (Zofran Injection) 4 mg IVPB Q6H PRN PRN Reason: NAUSEA Oxycodone HCl (Roxicodone -) 5 mg PO Q3H PRN PRN Reason: PAIN Last Admin: 08/11/16 09:18 Dose: 5 mg Phenol/Menthol (Chloraseptic -) 1 spray MM Q6HPO PRN PRN Reason: SORE THROAT Piperacillin Sod/Tazobactam Sod (Zosyn 4.5gm Ivpb (Pre-Docked)) 4.5 gm IVPB Q8H -IV MANNY Last Admin: 08/11/16 09:14 Dose: 4.5 gm Promethazine HCl (Phenergan Injection -) 12.5 mg IVPB Q6H PRN PRN Reason: NAUSEA AND/OR VOMITING - Objective Vital Signs: Vital Signs Temperature 98.4 F 08/11/16 06:19 Pulse Rate 74 08/11/16 09:43 Respiratory Rate 18 08/11/16 09:43 Blood Pressure 152/70 08/11/16 09:43 O2 Sat by Pulse Oximetry (%) 98 08/11/16 09:19 Constitutional: Yes: No Distress Cardiovascular: Yes: Regular Rate and Rhythm Respiratory: Yes: CTA Bilaterally Gastrointestinal: Yes: Normal Bowel Sounds, Soft, Other (colostomy). No: Distention, Tenderness Edema: No Labs: CBC, BMP 08/11/16 05:15 08/11/16 05:15 Problem List - Problems (1) Diverticulitis of intestine with perforation and abscess Code(s): K57.80 - DVTRCLI OF INTEST, PART UNSP, W PERF AND ABSCESS W/O BLEED Qualifiers: Diverticulitis site: large intestine Diverticulitis bleeding: without bleeding Qualified Code(s): K57.20 - Diverticulitis of large intestine with perforation and abscess without bleeding (2) Hypertension Code(s): I10 - ESSENTIAL (PRIMARY) HYPERTENSION (3) Smoker Code(s): F17.200 - NICOTINE DEPENDENCE, UNSPECIFIED, UNCOMPLICATED Assessment/Plan PLAN s/p surgery POD #6 IV antibiotics IV fluids OOB ok to transfer to floor incentive spirometry DVT prophylaxis-- Heparin sc GI prophylaxes-- Protonix
--- NOTE | 2016-08-11 12:46 | PN ---
Teaching Attending Note Name of Resident: Maria Ines Soriano ATTENDING PHYSICIAN STATEMENT I saw and evaluated the patient. I reviewed the resident's note and discussed the case with the resident. I agree with the resident's findings and plan as documented. SUBJECTIVE: Pt seen and examined in the ICU. Pain better controlled. Tolerating PO. No fevers recorded. Good ostomy output. OBJECTIVE: Last Vital Signs Temp Pulse Resp BP Pulse Ox 98.4 F 68 18 166/79 98 08/11/16 06:19 08/11/16 12:00 08/11/16 12:00 08/11/16 12:00 08/11/16 09:19 Intake & Output 08/08/16 08/09/16 08/10/16 08/11/16 23:59 23:59 23:59 23:59 Intake Total 2550 4050 2715 1000 Output Total 1520 1900 2500 1400 Balance 1030 2150 215 -400 Weight 157 lb 1.6 oz 152 lb 11.2 oz 153 lb 10.595 oz Gen: NAD in chair Heart: RRR Lung: decreased breath sounds at the bases Abd: soft, nontender Ext: no edema CBC, BMP 08/11/16 05:15 08/11/16 05:15 Active Medications Heparin Sodium (Porcine) (Heparin -) 5,000 unit SQ BID [facility] Last Admin: 08/11/16 09:14 Dose: 5,000 unit Dextrose/Lactated Ringer's (D5-Lr -) 1,000 mls @ 75 mls/hr IV ASDIR [facility] Last Admin: 08/11/16 00:04 Dose: 75 mls/hr Pantoprazole Sodium (Protonix 40mg Ivpb (Pre-Docked)) 100 mls @ 200 mls/hr IVPB DAILY [facility] Last Admin: 08/11/16 09:14 Dose: 200 mls/hr Lorazepam (Ativan Injection -) 1 mg IVPUSH Q6H PRN PRN Reason: WITHDRAWAL(CONT SUBST) Ondansetron HCl (Zofran Injection) 4 mg IVPB Q6H PRN PRN Reason: NAUSEA Oxycodone HCl (Roxicodone -) 5 mg PO Q3H PRN PRN Reason: PAIN Last Admin: 08/11/16 12:30 Dose: 5 mg Phenol/Menthol (Chloraseptic -) 1 spray MM Q6HPO PRN PRN Reason: SORE THROAT Piperacillin Sod/Tazobactam Sod (Zosyn 4.5gm Ivpb (Pre-Docked)) 4.5 gm IVPB Q8H -IV MANNY Last Admin: 08/11/16 09:14 Dose: 4.5 gm Promethazine HCl (Phenergan Injection -) 12.5 mg IVPB Q6H PRN PRN Reason: NAUSEA AND/OR VOMITING ASSESSMENT AND PLAN: Acute Perforated Diverticulitis Intra-abdominal Abscess/Feculent Peritonitis s/p ex-lap/Hartmans procedure/colostomy Sepsis HTN DM - continue antibiotics - pain control - incentive spirometry - PO as tolerated - IVF - monitor lytes - OOB to chair - DVT prophylaxis - can monitor on surgical floor
--- NOTE | 2016-08-11 14:19 | PN ---
Physical Exam: SUBJECTIVE: Patient seen and examined. He is still complaining of abdominal pain , colostomy bag is draining stool. He denies fever, chills, chest pain, SOB. OBJECTIVE: Vital Signs Period Temp Pulse Resp BP Sys/Najera Pulse Ox Last 24 Hr 97.8 F-98.4 F 66-78 17-20 138-166/64-88 98-98 GENERAL: The patient is awake, alert, and fully oriented, in no distress, sitting in chair and using laptop. HEAD: Normal with no signs of trauma. EYES: extraocular movements intact, sclera anicteric, conjunctiva clear. ENT: oropharynx clear without exudates, dry mucous membranes. NECK: Trachea midline, full range of motion, supple. LUNGS:clear to auscultation bilaterally, no wheezes, no crackles, no accessory muscle use. HEART: Regular rate and rhythm, S1, S2 without murmur, rub or gallop. ABDOMEN: Soft, tender in all 4 q, distended, hypooactive bowel sounds, no guarding, no rebound, no hepatosplenomegaly, no masses, healing longitudinal wound, dry, kelsi applied, covered with dressing. EXTREMITIES:no edema. NEUROLOGICAL: No facial asymmetry. Normal speech, gait not observed. PSYCH: Normal mood, normal affect. SKIN: Warm, dry, normal turgor, no rashes or lesions noted Laboratory Results - last 24 hr 08/10/16 08/10/16 08/10/16 11:12 17:32 21:36 WBC RBC Hgb Hct MCV MCHC RDW Plt Count MPV Sodium Potassium Chloride Carbon Dioxide Anion Gap BUN Creatinine Creat Clearance w eGFR POC Glucometer 149.53049 132.97626 148.10685 Random Glucose Calcium Total Bilirubin AST ALT Alkaline Phosphatase Total Protein Albumin 08/11/16 08/11/16 08/11/16 05:15 05:15 06:16 WBC 11.4 H RBC 3.71 L Hgb 11.8 D Hct 35.5 D MCV 95.8 MCHC 33.2 RDW 13.7 Plt Count 356 D MPV 9.8 Sodium 141 Potassium 3.9 Chloride 103 Carbon Dioxide 29 Anion Gap 9 BUN 6 L Creatinine 0.4 L Creat Clearance w eGFR > 60 POC Glucometer 122.73109 Random Glucose 110 H Calcium 8.3 L Total Bilirubin 0.9 D AST 37 ALT 35 D Alkaline Phosphatase 123 H D Total Protein 6.4 D Albumin 2.5 L 08/11/16 12:24 WBC RBC Hgb Hct MCV MCHC RDW Plt Count MPV Sodium Potassium Chloride Carbon Dioxide Anion Gap BUN Creatinine Creat Clearance w eGFR POC Glucometer 153.97754 Random Glucose Calcium Total Bilirubin AST ALT Alkaline Phosphatase Total Protein Albumin Active Medications Generic Name Dose Route Start Last Admin Trade Name Freq PRN Reason Stop Dose Admin Heparin Sodium (Porcine) 5,000 unit 08/10/16 22:00 08/11/16 09:14 Heparin - SQ 5,000 unit BID MANNY Administration Dextrose/Lactated Ringer's 1,000 mls @ 75 mls/hr 08/10/16 18:44 08/11/16 00:04 D5-Lr - IV 75 mls/hr ASDIR MANNY Administration Pantoprazole Sodium 100 mls @ 200 mls/hr 08/11/16 10:00 08/11/16 09:14 Protonix 40mg Ivpb (Pre-Docked) IVPB 200 mls/hr DAILY MANNY Administration Lorazepam 1 mg 08/10/16 18:44 Ativan Injection - IVPUSH Q6H PRN WITHDRAWAL(CONT SUBST) Ondansetron HCl 4 mg 08/10/16 18:44 Zofran Injection IVPB Q6H PRN NAUSEA Oxycodone HCl 5 mg 08/10/16 18:44 08/11/16 12:30 Roxicodone - PO 5 mg Q3H PRN Administration PAIN Phenol/Menthol 1 spray 08/10/16 18:44 Chloraseptic - MM Q6HPO PRN SORE THROAT Piperacillin Sod/Tazobactam Sod 4.5 gm 08/11/16 02:00 08/11/16 09:14 Zosyn 4.5gm Ivpb (Pre-Docked) IVPB 4.5 gm Q8H-IV MANNY Administration Promethazine HCl 12.5 mg 08/10/16 18:44 Phenergan Injection - IVPB Q6H PRN NAUSEA AND/OR VOMITING ASSESSMENT/PLAN: 61 y/o man with HTN, HLD, NIDDM who presented with abdominal pain and constipation, found to have acute diverticulitis with perforation and intra- abdominal abscess now s/p ex-lap, partial colectomy, splenic flexure mobilization, hartmans procedure, descending colostomy, peritoneal washout and omentectomy, admitted to ICU for monitoring post-op. S/P ex lap: POD#6 -post op wound care -dressing applied, wound clean, dry -GI following -ID following - continue zosyn -pain control with Roxicodone -regular diet -continuous IVF -Zofran 4 mg -hemodynamic monitoring - IV antihypertensives PRN -DC Yepez DM type 2; -monitor BGM HTN: hold for now Current smoker: -counseling GI PPX: -GI ppx DVT PPX -venodynes -Heparin SQ Disposition: can be transferred to med surg FULL CODE Problem List - Problems (1) Diabetes 1.5, managed as type 2 Code(s): E10.9 - TYPE 1 DIABETES MELLITUS WITHOUT COMPLICATIONS (2) Diverticulitis of intestine with perforation and abscess Code(s): K57.80 - DVTRCLI OF INTEST, PART UNSP, W PERF AND ABSCESS W/O BLEED Qualifiers: Diverticulitis site: large intestine Diverticulitis bleeding: without bleeding Qualified Code(s): K57.20 - Diverticulitis of large intestine with perforation and abscess without bleeding (3) Fecal peritonitis Code(s): K65.8 - OTHER PERITONITIS (4) Hypertension Code(s): I10 - ESSENTIAL (PRIMARY) HYPERTENSION (5) Perforated bowel Code(s): K63.1 - PERFORATION OF INTESTINE (NONTRAUMATIC) (6) Smoker Code(s): F17.200 - NICOTINE DEPENDENCE, UNSPECIFIED, UNCOMPLICATED Visit type - Emergency Visit Emergency Visit: Yes ED Registration Date: 08/03/16 Care time: The patient presented to the Emergency Department on the above date and was hospitalized for further evaluation of their emergent condition. - New Patient This patient is new to me today: No - Critical Care Critical Care patient: Yes Total Critical Care Time (in minutes): 30 Critical Care Statement: The care of this patient involved high complexity decision making to prevent further life threatening deterioration of the patient 's condition and/or to evalute & treat vital organ system(s) failure or risk of failure.
--- NOTE | 2016-08-11 14:23 | PATH ---
Surgical Pathology Report Patient Name: MADONNA WESLEY [facility]. Rec. 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 Specimen(s) Received A: SIGMOID COLON B: OMENTUM Clinical History Perforated bowel, fecal peritonitis Final Diagnosis A. COLON, SIGMOID, RESECTION: PORTION OF COLON WITH DIVERTICULOSIS AND DIVERTICULITIS WITH PERFORATION, SURROUNDING ACUTE AND CHRONIC INFLAMMATION AND ASSOCIATED MARKED ACUTE SEROSITIS. NO MALIGNANCY IDENTIFIED. SURGICAL RESECTION MARGINS APPEAR VIABLE. B. OMENTUM, OMENTECTOMY: BENIGN FATTY TISSUE WITH VASCULAR CONGESTION. Electronically Signed Westley Jordan M.D. Gross Description A. Received in formalin labeled "sigmoid colon" is a 10.5 cm in length portion of colon with a suture marking the proximal end, per the surgeon. The proximal and distal mucosal margins are stapled. The specimen displays moderate attached fat. The serosa is mukherjee-brown with attached exudate and a focal large defect, surrounded by inflammation, consistent with the site of rupture. The mucosa is mukherjee-green and edematous with normal folds. No mucosal masses are identified. Associate Professor Of Anthropology sections are submitted in 9 cassettes as follows: 1-proximal mucosal margin; 2-distal mucosal margin; 2-5-wwuyuqrx from rupture site; 9-7-xbixvajaam leather goods sales representative bowel. B. Received in formalin labeled "omentum" is a 9.0 x 5.5 x 1.5 cm portion of yellow, lobulated adipose tissue. Sectioning reveals unremarkable adipose tissue. No masses are identified. Associate Professor Of Anthropology sections are submitted in one cassette. DL/08/10/2016 saudi/08/10/2016
[2016-08-11] MEDS: ATORVASTATIN CA 10 MG TABLET (FP) PO SCH (21:07)
[2016-08-12] MEDS: PIPERACILLIN/TAZOB 4.5 GM/100 ML PRE-DOCKED IVPB SCH ×3 (01:14→18:08)
[2016-08-12] MEDS: oxyCODONE HCL 5 MG TABLET PO PRN ×5 (06:00→21:48)
[2016-08-12] MEDS: DEXTROSE 5%-LACTATED RINGERS 1,000 ML IV SCH (06:00)
[2016-08-12 07:33] LABS: MCH 32.3 pg (25.7-33.7); MCHC 33.6 g/dl (32.0-35.9); MEAN PLT VOLUME 9.4 fl (7.5-11.1); PLATELET COUNT 372 K/MM3 (134-434); RDW 14.1 % (11.9-15.9); WHITE BLOOD COUNT 10.4 K/mm3 (4.0-10.0)
[2016-08-12 08:40] LABS: ALBUMIN 2.5 g/dl (3.4-5.0); ALK PHOS 122 U/L (45-117); ANION GAP 7 (8-16); BILIRUBIN,TOTAL 0.8 mg/dL (0.2-1.0); CALCIUM 8.1 mg/dL (8.5-10.1); CO2 28 mmol/L (21-32); COCKROFT - GAULT 148.36; CREATININE 0.5 mg/dL (0.7-1.3); GLUCOSE,RANDOM 117 mg/dL (74-106); SGOT/AST 36 U/L (15-37); SGPT/ALT 34 U/L (12-78); TOT PROT 6.2 g/dl (6.4-8.2)
[2016-08-12] MEDS: LOSARTAN 50MG/HCTZ 12.5MG 1 TAB (FP) PO SCH (10:34)
[2016-08-12] MEDS: HEPARIN NA (PORCINE) 5,000 UNITS/ML 1ML VIAL SQ SCH ×2 (10:34→21:49)
[2016-08-12] MEDS: PANTOPRAZOLE SODIUM 100 ML IVPB SCH (10:34)
[2016-08-12] MEDS ORDERED: ACETAMINOPHEN 325 MG TABLET (FP) PO PRN (10:39)
--- NOTE | 2016-08-12 10:39 | PN ---
Progress Note, Physician Chief Complaint: sitting up in chair no distress tolerating diet - Current Medication List Current Medications: Active Medications Atorvastatin Calcium (Lipitor -) 10 mg PO HS [facility] Last Admin: 08/11/16 21:07 Dose: 10 mg HCTZ/Losartan Potassium (Hyzaar -) 1 tab PO DAILY [facility] Last Admin: 08/12/16 10:34 Dose: 1 tab Heparin Sodium (Porcine) (Heparin -) 5,000 unit SQ BID [facility] Last Admin: 08/12/16 10:34 Dose: 5,000 unit Dextrose/Lactated Ringer's (D5-Lr -) 1,000 mls @ 75 mls/hr IV ASDIR [facility] Last Admin: 08/12/16 06:00 Dose: 75 mls/hr Pantoprazole Sodium (Protonix 40mg Ivpb (Pre-Docked)) 100 mls @ 200 mls/hr IVPB DAILY [facility] Last Admin: 08/12/16 10:34 Dose: 200 mls/hr Lorazepam (Ativan Injection -) 1 mg IVPUSH Q6H PRN PRN Reason: WITHDRAWAL(CONT SUBST) Ondansetron HCl (Zofran Injection) 4 mg IVPB Q6H PRN PRN Reason: NAUSEA Oxycodone HCl (Roxicodone -) 5 mg PO Q3H PRN PRN Reason: PAIN Last Admin: 08/12/16 09:00 Dose: 5 mg Phenol/Menthol (Chloraseptic -) 1 spray MM Q6HPO PRN PRN Reason: SORE THROAT Piperacillin Sod/Tazobactam Sod (Zosyn 4.5gm Ivpb (Pre-Docked)) 4.5 gm IVPB Q8H -IV [facility] Last Admin: 08/12/16 10:34 Dose: 4.5 gm Promethazine HCl (Phenergan Injection -) 12.5 mg IVPB Q6H PRN PRN Reason: NAUSEA AND/OR VOMITING - Objective Vital Signs: Vital Signs Temperature 98.7 F 08/12/16 08:37 Pulse Rate 65 08/12/16 08:37 Respiratory Rate 20 08/12/16 08:37 Blood Pressure 157/70 08/12/16 08:37 O2 Sat by Pulse Oximetry (%) 98 08/11/16 09:19 Constitutional: Yes: No Distress Cardiovascular: Yes: Regular Rate and Rhythm Respiratory: Yes: CTA Bilaterally Gastrointestinal: Yes: Normal Bowel Sounds, Soft, Other (colostomy functioning) . No: Distention, Tenderness Edema: No Labs: CBC, BMP 08/12/16 05:10 08/12/16 05:10 Problem List - Problems (1) Diverticulitis of intestine with perforation and abscess Code(s): K57.80 - DVTRCLI OF INTEST, PART UNSP, W PERF AND ABSCESS W/O BLEED Qualifiers: Diverticulitis site: large intestine Diverticulitis bleeding: without bleeding Qualified Code(s): K57.20 - Diverticulitis of large intestine with perforation and abscess without bleeding (2) Hypertension Code(s): I10 - ESSENTIAL (PRIMARY) HYPERTENSION (3) Smoker Code(s): F17.200 - NICOTINE DEPENDENCE, UNSPECIFIED, UNCOMPLICATED Assessment/Plan PLAN s/p surgery POD #7 IV antibiotics IV fluids-- dc today OOB advised to use opioids less for pain incentive spirometry DVT prophylaxis-- Heparin sc GI prophylaxes-- Protonix
--- NOTE | 2016-08-12 13:38 | PN ---
Progress Note (short form) - Note Progress Note: POD #7 feels well, eating Vital Signs Period Temp Pulse Resp BP Sys/Najera Pulse Ox Last 24 Hr 97.6 F-98.7 F 64-76 16-20 124-178/68-88 98 cor-rrr lungs decreased bs at bases abd soft +ostomy function midline dressing intact ext no edema CBC, BMP 06//17 05:10 06//17 05:10 a/p POD #7 s/p ex lap and Arias's procedure- fecal peritonitis operative cultures polymicrobial, d/c zosyn in am encourage incentive spirometry (smoker), encourage OOB and ambulation htn dm Problem List - Problems (1) Diverticulitis of intestine with perforation and abscess Code(s): K57.80 - DVTRCLI OF INTEST, PART UNSP, W PERF AND ABSCESS W/O BLEED Qualifiers: Qualified Code(s): K57.20 - Diverticulitis of large intestine with perforation and abscess without bleeding
--- NOTE | 2016-08-12 16:54 | PN ---
Progress Note (short form) - Note Progress Note: Covering for Dr Oleary No acute events Pain controlled On diet Vital Signs Period Temp Pulse Resp BP Sys/Najera Pulse Ox Last 24 Hr 97.6 F-98.7 F 65-76 16-20 124-178/68-88 98 Abd soft, midline wound packed, ostomy + stool/functioning CBC, BMP 08/12/16 05:10 08/12/16 05:10 Continue diet OOB Antibiotics per ID Daily wound packing
[2016-08-12] MEDS: ATORVASTATIN CA 10 MG TABLET (FP) PO SCH (21:49)
[2016-08-13] MEDS: PIPERACILLIN/TAZOB 4.5 GM/100 ML PRE-DOCKED IVPB SCH ×2 (02:46→10:37)
[2016-08-13] MEDS: oxyCODONE HCL 5 MG TABLET PO PRN (04:35)
[2016-08-13 09:20] VITALS: PULSE 71
--- NOTE | 2016-08-13 09:32 | PN ---
Progress Note, Physician - Current Medication List Current Medications: Active Medications Acetaminophen (Tylenol -) 650 mg PO Q4H PRN PRN Reason: FEVER OR PAIN Last Admin: 08/13/16 04:36 Dose: 650 mg Atorvastatin Calcium (Lipitor -) 10 mg PO HS [facility] Last Admin: 08/12/16 21:49 Dose: 10 mg HCTZ/Losartan Potassium (Hyzaar -) 1 tab PO DAILY [facility] Last Admin: 08/12/16 10:34 Dose: 1 tab Heparin Sodium (Porcine) (Heparin -) 5,000 unit SQ BID [facility] Last Admin: 08/12/16 21:49 Dose: 5,000 unit Ondansetron HCl (Zofran Injection) 4 mg IVPB Q6H PRN PRN Reason: NAUSEA Oxycodone HCl (Roxicodone -) 5 mg PO Q4H PRN PRN Reason: PAIN Last Admin: 08/13/16 04:35 Dose: 5 mg Pantoprazole Sodium (Protonix -) 40 mg PO DAILY [facility] Phenol/Menthol (Chloraseptic -) 1 spray MM Q6HPO PRN PRN Reason: SORE THROAT Piperacillin Sod/Tazobactam Sod (Zosyn 4.5gm Ivpb (Pre-Docked)) 4.5 gm IVPB Q8H -IV [facility] Last Admin: 08/13/16 02:46 Dose: 4.5 gm Promethazine HCl (Phenergan Injection -) 12.5 mg IVPB Q6H PRN PRN Reason: NAUSEA AND/OR VOMITING - Objective Vital Signs: Vital Signs Temperature 98 F 08/13/16 08:00 Pulse Rate 71 08/13/16 08:00 Respiratory Rate 20 08/13/16 08:00 Blood Pressure 145/71 08/13/16 08:00 O2 Sat by Pulse Oximetry (%) 98 08/12/16 21:00 Labs: CBC, BMP 08/12/16 05:10 08/12/16 05:10 Problem List - Problems (1) Diverticulitis of intestine with perforation and abscess Code(s): K57.80 - DVTRCLI OF INTEST, PART UNSP, W PERF AND ABSCESS W/O BLEED Qualifiers: Diverticulitis site: large intestine Diverticulitis bleeding: without bleeding Qualified Code(s): K57.20 - Diverticulitis of large intestine with perforation and abscess without bleeding (2) Diabetes 1.5, managed as type 2 Code(s): E10.9 - TYPE 1 DIABETES MELLITUS WITHOUT COMPLICATIONS (3) Hypertension Code(s): I10 - ESSENTIAL (PRIMARY) HYPERTENSION Assessment/Plan Surgery: Patient is afebrile, Tolerating diet, Colostomy is pink, functioning. Wound is clean. Can be discharged home. Follow up in my office, call [phone]. Social service, assistance.
[2016-08-13] MEDS ORDERED: PANTOPRAZOLE 40 MG TABLET (FP) PO SCH (10:00)
--- NOTE | 2016-08-13 10:08 | PN ---
Progress Note (short form) - Note Progress Note: No acute events overnight. Tolerating PO intake. No CP or SOB. Intake & Output 08/10/16 08/11/16 08/12/16 08/13/16 23:59 23:59 23:59 23:59 Intake Total 2715 3050 2082.5 Output Total 2500 2700 2600 Balance 215 350 -517.5 Weight 152 lb 11.2 oz 153 lb 10.595 oz 147 lb 3 oz 145 lb 4 oz Last Vital Signs Temp Pulse Resp BP Pulse Ox 98 F 71 20 145/71 98 08/13/16 08:00 08/13/16 08:00 08/13/16 08:00 08/13/16 08:00 08/12/16 21:00 Active Medications Acetaminophen (Tylenol -) 650 mg PO Q4H PRN PRN Reason: FEVER OR PAIN Last Admin: 08/13/16 04:36 Dose: 650 mg Atorvastatin Calcium (Lipitor -) 10 mg PO HS [facility] Last Admin: 08/12/16 21:49 Dose: 10 mg HCTZ/Losartan Potassium (Hyzaar -) 1 tab PO DAILY [facility] Last Admin: 08/12/16 10:34 Dose: 1 tab Heparin Sodium (Porcine) (Heparin -) 5,000 unit SQ BID [facility] Last Admin: 08/12/16 21:49 Dose: 5,000 unit Ondansetron HCl (Zofran Injection) 4 mg IVPB Q6H PRN PRN Reason: NAUSEA Oxycodone HCl (Roxicodone -) 5 mg PO Q4H PRN PRN Reason: PAIN Last Admin: 08/13/16 04:35 Dose: 5 mg Pantoprazole Sodium (Protonix -) 40 mg PO DAILY [facility] Phenol/Menthol (Chloraseptic -) 1 spray MM Q6HPO PRN PRN Reason: SORE THROAT Piperacillin Sod/Tazobactam Sod (Zosyn 4.5gm Ivpb (Pre-Docked)) 4.5 gm IVPB Q8H -IV [facility] Last Admin: 08/13/16 02:46 Dose: 4.5 gm Promethazine HCl (Phenergan Injection -) 12.5 mg IVPB Q6H PRN PRN Reason: NAUSEA AND/OR VOMITING Gen: NAD Heart: RRR Lung: decreased breath sounds at the bases Abd: soft, Ostomy pink Ext: no edema ASSESSMENT AND PLAN: Acute Perforated Diverticulitis Intra-abdominal Abscess/Feculent Peritonitis s/p ex-lap/Hartmans procedure/colostomy Sepsis HTN DM - pain control - incentive spirometry - PO as tolerated - OOB to chair - DVT prophylaxis - D/C planning Dr Barrett
[2016-08-13] MEDS: HEPARIN NA (PORCINE) 5,000 UNITS/ML 1ML VIAL SQ SCH (10:37)
[2016-08-13] MEDS: LOSARTAN 50MG/HCTZ 12.5MG 1 TAB (FP) PO SCH (10:37)
--- NOTE | 2016-08-13 10:38 | PN ---
Progress Note (short form) - Note Progress Note: ID Elizabeth Post op doing well Selected Entries 08/13/16 08:00 Temperature 98 F Respiratory 20 Rate Blood Pressure 145/71 Abd Sfot nontender ostomy Assessment Day 8 post op Peritonitis Plan Stop antibiotics Harika DALTON Problem List - Problems (1) Perforated bowel Code(s): K63.1 - PERFORATION OF INTESTINE (NONTRAUMATIC) (2) Fecal peritonitis Code(s): K65.8 - OTHER PERITONITIS (3) Alcohol dependence Code(s): F10.20 - ALCOHOL DEPENDENCE, UNCOMPLICATED Qualifiers: Substance use status: uncomplicated Qualified Code(s): F10.20 - Alcohol dependence, uncomplicated (4) Diabetes 1.5, managed as type 2 Code(s): E10.9 - TYPE 1 DIABETES MELLITUS WITHOUT COMPLICATIONS
--- NOTE | 2016-08-13 12:01 | DS ---
Physical Examination Vital Signs: Vital Signs Temperature 98 F 08/13/16 08:00 Pulse Rate 71 08/13/16 08:00 Respiratory Rate 20 08/13/16 08:00 Blood Pressure 145/71 08/13/16 08:00 O2 Sat by Pulse Oximetry (%) 98 08/12/16 21:00 Constitutional: Yes: No Distress, Calm Cardiovascular: Yes: Regular Rate and Rhythm Respiratory: Yes: CTA Bilaterally Gastrointestinal: Yes: Normal Bowel Sounds, Soft, Other (no drainage--surgical wound with kelsi, colostomy functioning). No: Tenderness Edema: No Labs: CBC, BMP 08/12/16 05:10 08/12/16 05:10 Discharge Summary Reason For Visit: PERFORATION OF INTESTINE Current Active Problems Alcohol dependence (Acute) Diabetes 1.5, managed as type 2 (Acute) Diverticulitis of intestine with perforation and abscess (Acute) Fecal peritonitis (Acute) Hypertension (Acute) Perforated bowel (Acute) Smoker (Acute) Hospital Course: patient admitted for severe abdominal pain and was found to have diverticulitis with microperforation and abscess. He was seen by surgeon as well as manager supply chain. Start any antibiotics. He had drainage of abscess done by interventional radiology the next day but was noted to have stool draining out into the KOMAL drain. He was immediately taken for surgery on August 05 as he had fecal peritonitis, operative note below her surgeonDr.Oleary: - Note: Operative Date: 08/05/16 Pre-Operative Diagnosis: Acute diverticulitis with perforation , and gangrene of sigmoid colon, with intraabdominal abscess, and fecal peritonitis. Operation: Exploratory laparotomy, sigmoid resection, descending colostomy, ( Arias procedure),. Mobilisation of splenic flexure of colon,. omentectomy,. peritoneal wash out. Findings: Gangrenous sigmoid colon , with perforation , and fecal peritonitis, with acute diverticulitis. Intraabdominal abscess. postoperative course was unremarkable, he was initially transferred to ICU for monitoring. NG tube discontinued once he regained bowel function and the colostomy was functioning. Patient has now advanced to regular diet and is tolerating it. Pain control better. Wound is clean and no drainage. he has completed 8 days of antibiotics for fecal peritonitis. Seen by infectious disease, surgeon as well as manager supply chain. Stable for discharge home. I have prescribed him pain medicationoxycodoneelectronically prescribed to his pharmacy today,HCS verified Condition: Fair - Instructions Diet, Activity, Other Instructions: Regular diet, May shower at [place]. Colostomy care , management. Small dressing on the abdominal wound after shower. Follow up in Dr Oleary office , call [phone], for,08/20/2016. Tylenol for pain. Activity , ambulate. Follow up with Dr Guerrero/Dr Dillard in 2 weeks Referrals: Melani Guerrero MD [Staff Physician] - Ellen Oleary MD [Staff Physician] - Disposition: HOME - Home Medications Comprehensive Discharge Medication List: Ambulatory Orders Simvastatin [Zocor -] 20 mg PO HS 01/18/12 Losartan/Hydrochlorothiazide [Losartan-Hctz 50-12.5 mg Tab] 1 each PO DAILY 02/10 Aspirin [ASA -] 81 mg PO DAILY #0 tab.chew 09/10/12
[2016-08-13 14:10] VITALS: BP 139/65; TEMP 98.1
== END 2016-08-13 16:20 | disposition home health service (06) | DRG 330 ==
LOC: JER 12:12 → JERBED 20:56 → J5S 08-04 18:21 → JICU 08-05 21:12 → J6S 08-11 20:31
PROVIDERS: ADMIT Internal Medicine; ATTEND Internal Medicine
PROC: 0D1M0Z4 Bypass Descending Colon to Cutaneous, Open Approach (ICD-10-PCS; 2016-08-05)
PROC: 0DBS0ZZ (ICD-10-PCS; 2016-08-05)
PROC: 0D9W3ZX Drainage of Peritoneum, Percutaneous Approach, Diagnostic (ICD-10-PCS; 2016-08-05)
PROC: 3E1M38Z Irrigation of Peritoneal Cavity using Irrigating Substance, Percutaneous Approach (ICD-10-PCS; 2016-08-05)
PROC: 0DBN0ZZ Excision of Sigmoid Colon, Open Approach (ICD-10-PCS; principal; 2016-08-05 15:26)
DX: K57.20 Diverticulitis of large intestine with perforation and abscess without bleeding (principal); I96 Gangrene, not elsewhere classified; I10 Essential (primary) hypertension; F17.210 Nicotine dependence, cigarettes, uncomplicated; E11.9 Type 2 diabetes mellitus without complications; E78.5 Hyperlipidemia, unspecified; R50.9 Fever, unspecified; R45.1 Restlessness and agitation
CPT/HCPCS: 36415; 71010-TC; 71020-TC; 74020-TC; 74177-TC; 75984-TC; 76098-TC; 80048; 80053; 80307; 81003; 81015; 83690; 83735; 84100; 85025; 85027; 86850; 86900; 86901; 87040; 87070; 87075; 87186; 87205; 87899; 88305-TC; 88307-TC; 93005; 93010; 94760; 99284-25; C1729; C1769; J1644

== ENCOUNTER 2017-03-12 05:04 | Inpatient (IN) | payer OTHER ==
[2017-03-11 14:37] VITALS: BMI 24.2
--- NOTE | 2017-03-12 09:12 | HP ---
History & Physical Update - History History: No Change - Physical Physical: No Change - Assessment Assessment: No Change - Plan Plan: No Change (Patient is s/p sigmoid resection , and chase procedure for perforated diverticulitis. He is planned to hve take down of his colostomy, resection of the stoma and colorectal anastamosis. He has had mechanical bowel prep, and colonoscopy.)
[2017-03-12] MEDS ORDERED: HEPARIN NA (PORCINE) 5,000 UNITS/ML 1ML VIAL SQ SCH (10:00)
[2017-03-12] MEDS ORDERED: PROMETHAZINE HCL 25 MG/1 ML VIAL IVPUSH PRN (10:20)
[2017-03-12] MEDS ORDERED: ONDANSETRON 4 MG/2 ML VIAL IVPUSH PRN (10:20)
--- NOTE | 2017-03-12 10:21 | OP ---
Operative Note - Note: Operative Date: 03/12/17 Operation: Procedure not done. Findings: Planned surgical procedure was not done. Patient was found to have inverted T waves in lead 2, whwn he was placed on the operating table, and monitored. Procedure was cancelled for evaluation of his cardiac status. Dr. No Dillard called. Patient was informed and explained , as he was not induced into anesthesia. Surgeon: Ellen Oleary
[2017-03-12] MEDS ORDERED: LACTATED RINGERS SOLUTION 1,000 ML IV SCH (10:30)
[2017-03-12 11:11] LABS: HEMATOCRIT 44.3 % (35.4-49); HEMOGLOBIN 14.4 GM/dL (11.7-16.9); MCH 31.2 pg (25.7-33.7); MCHC 32.4 g/dl (32.0-35.9); MEAN CELL VOLUME 96.1 fl (80-96); MEAN PLT VOLUME 9.6 fl (7.5-11.1); PLATELET COUNT 196 K/MM3 (134-434); RBC 4.61 M/mm3 (4.00-5.60); RDW 14.7 % (11.9-15.9); WHITE BLOOD COUNT 7.8 K/mm3 (4.0-10.0)
[2017-03-12 11:43] LABS: ALBUMIN 3.5 g/dl (3.4-5.0); ANION GAP 7 (8-16); BLOOD UREA NITROGEN 9 mg/dL (7-18); CHLORIDE 109 mmol/L (98-107); CO2 26 mmol/L (21-32); CREATININE 0.4 mg/dL (0.7-1.3); GLUCOSE,RANDOM 91 mg/dL (74-106); POTASSIUM 3.9 mmol/L (3.5-5.1); SGOT/AST 13 U/L (15-37); SGPT/ALT 25 U/L (12-78); SODIUM 142 mmol/L (136-145)
[2017-03-12 11:47] LABS: ALK PHOS 40 U/L (45-117); TOT PROT 6.3 g/dl (6.4-8.2)
--- NOTE | 2017-03-12 11:58 | CON.CARD ---
Consult Consult Specialty:: Cardiology Referred by:: Anirudh Reason for Consultation:: EKG changes preop - History of Present Illness Chief Complaint: In for elective reversal of colectomy, noted to have EKG changes History of Present Illness: 61 year old man with a history of HTN, HLD, DMII, diverticulitis with perforation s/p surgical repair and colostomy, seen in office 12/2016 with chronic abnormal EKG, underwent nuclear stress test showing no ischemia, echo showing overall normal structural heart. EKG was noted to be abnormal for a few years. 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 Only complaint was occasional dizziness on standing. Pt was in today for elective reversal of colostomy, prop when in OR on monitor noted by anesthesia to have significant changes in inferior leads thus surgery was cancelled. Pt was normotensive at the time and had only received versed at that point. Pt was seen and examined in the recovery room in [facility]. awake and alert in nad. denies any chest pain, sob, palpitations. states he is feeling fine. - History Source History Provided By: Patient, Family Member, Medical Record Limitations to Obtaining History: No Limitations - Past Medical History Cardio/Vascular: Yes: HTN, Hyperlipdemia Endocrine: Yes: Diabetes Mellitus - Past Surgical History Past Surgical History: Yes: None - Alcohol/Substance Use Hx Alcohol Use: Yes (OCCAS) - Smoking History Smoking history: Current every day smoker Have you smoked in the past 12 months: Yes Aproximately how many cigarettes per day: 3 - Social History ADL: Independent History of Recent Travel: No Home Medications - Allergies Allergies/Adverse Reactions: Allergies Allergy/AdvReac Type Severity Reaction Status Date / Time No Known Allergies Allergy Verified 03/11/17 14:44 - Home Medications Home Medications: Ambulatory Orders Losartan Potassium 50 mg PO HS 03/11/17 Metformin HCl 500 mg PO BID 03/11/17 Simvastatin 40 mg PO HS 03/11/17 Family Disease History - Family Disease History Family Disease History: Heart Disease: Brother ( [place] age 59) Review of Systems - Review of Systems Constitutional: denies: No Symptoms, Chills, Diaphoresis, Fever, Lethargy, Loss of Appetite, Malaise, Night Sweats, Unintentional Wgt. Loss, Weakness, Other Eyes: denies: No Symptoms, Blind Spots, Blurred Vision, Double Vision, Eye Pain , Floaters, Photophobia, Recent Change in Vision, Other HENT: denies: No Symptoms, Difficult Swallowing, Ear Discharge, Ear Pain, Epistaxis, Gingival Bleeding, Hearing Loss, Mouth Swelling, Nasal Congestion, Ocular Prosthesis, Throat Pain, Toothache, Ringing in Ears, Other Neck: denies: No Symptoms, Decreased ROM, Lumps, Pain on Movement, Stiffness, Swollen Glands, Tenderness, Other Cardiovascular: denies: No Symptoms, Chest Pain, Edema, Palpitations, Shortness of Breath, Other Respiratory: denies: No Symptoms, Cough, Exercise Intolerance, Hemoptysis, Orthopnea, PND, Snoring, SOB, SOB on Exertion, Wheezing, Other Gastrointestinal: denies: No Symptoms, Abdominal Pain, Bloating, Constipation, Diarrhea, Dysphagia, Indigestion, Melena, Nausea, Rectal Bleeding, Vomiting, Vomiting Blood, Other Genitourinary: denies: No Symptoms, Burning, Discharge, Dysuria, Flank Pain, Frequency, Hematuria, Incontinence, Lesions, Menses, Pain, Testicular Mass, Testicular Pain, Testicular Swelling, Urgency, Vaginal Bleeding, Other Breasts: denies: No Symptoms Reported, See HPI, Breast Implants, Discharge from Nipple, Lumps, Pain, Skin Changes, Other Musculoskeletal: denies: No Symptoms, Back Pain, Crepitus, Decreased ROM, Extremity Pain, Joint Pain, Joint Swelling, Muscle Pain, Muscle Cramps, Muscle Weakness, Other Integumentary: denies: No Symptoms, Blister, Bruising, Change in Color, Eczema, Erythema, Incision, Lesions, Lump, Pallor, Pruritis, Rash, Wound, Other Neurological: denies: No Symptoms, Change in LOC, Change in Speech, Confusion, Dizziness, Headache, Incoordination, Numbness, Parasthesia, Pre-Existing Deficit , Seizure, Syncope, Tremors, Unsteady Gait, Weakness, Other Endocrine: denies: No Symptoms, Excessive Sweating, Flushing, Increased Hunger, Increased Thirst, Intolerance to Cold, Intolerance to Heat, Unexplained Weight Gain, Unexplained Weight Loss, Other Hematology/Lymphatic: denies: No Symptoms, Easily Bruised, Excessive Bleeding, Swollen Glands, Other Psychiatric: denies: No Symptoms, Altered Sleep Pattern, Anxiety, Depression, Hallucinations, Panic, Paranoia, Suicidal, Other - Risk Factors Known Risk Factors: Yes: Diabetes Mellitus, Family History, Hypercholesterolemia , Hypertension, Smoking Vital Signs: Vital Signs Temperature 97.7 F 03/12/17 08:08 Pulse Rate 57 L 03/12/17 08:08 Respiratory Rate 20 03/12/17 08:08 Blood Pressure 149/76 03/12/17 08:08 O2 Sat by Pulse Oximetry (%) 100 03/12/17 08:08 Constitutional: Yes: Well Nourished, No Distress, Calm Eyes: Yes: WNL, Conjunctiva Clear, EOM Intact HENT: Yes: WNL, Atraumatic, Normocephalic Neck: Yes: WNL, Supple, Trachea Midline Respiratory: Yes: WNL, Regular, CTA Bilaterally. No: Rales, Rhonchi, SOB, Wheezes Gastrointestinal: Yes: WNL, Normal Bowel Sounds, Soft. No: Distention, Tenderness Cardiovascular: Yes: WNL, Regular Rate and Rhythm, Other. No: Bradycardia, Tachycardia, Pulse Irregular, Gallop, Rub, Varicosities JVD: No Carotid Bruit: No PMI: Non-Displaced Heart Sounds: Yes: S1, S2. No: Split S2, S3, S4, Clicks, Gallop, Rub, Bruit Murmur: No: Systolic Murmur, Diastolic Murmur Musculoskeletal: Yes: WNL Extremities: Yes: WNL Edema: No Peripheral Pulses WNL: Yes Peripheral Pulses: 2+ Left Doralis Pedis, 2+ Right Dorsalis Pedis Integumentary: Yes: WNL Neurological: Yes: WNL, Alert, Oriented Psychiatric: Yes: WNL, Alert, Oriented - Other Data Labs, Other Data: CBC, BMP 03/12/17 10:35 03/12/17 10:35 Troponin, BNP 03/12/17 10:35 Troponin I < 0.02 Troponin, BNP 03/12/17 10:35 Troponin I < 0.02 EKG-NSR, LVH, diffuse T wave abnormalities with deep T wave inversions leads V3- V6, I, aVL, II, aVF, likely due to LVH but possible anterolateral ischemia, no sig change from outpatient EKGs Echo: Report Reviewed, Image Reviewed Ejection Fraction %: LVEF > or = 40 % Imaging - Results Chest X-ray: Report Reviewed, Image Reviewed EKG: Report Reviewed, Image Reviewed Other: Report Reviewed, Image Reviewed Assessment/Plan 61 year old man with a history of HTN, HLD, DMII, diverticulitis with perforation s/p surgical repair and colostomy, seen in office 12/2016 with chronic abnormal EKG, underwent nuclear stress test showing no ischemia, echo showing overall normal structural heart. EKG was noted to be abnormal for a few years. 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 Only complaint was occasional dizziness on standing. Pt was in today for elective reversal of colostomy, prop when in OR on monitor noted by anesthesia to have significant changes in inferior leads thus surgery was cancelled. Pt was normotensive at the time and had only received versed at that point. IMPRESSION: 1) Abnormal EKG-chronically abnormal but with changes noted by anesthesia when pt in OR -recent nuclear stress test showed no ischemia however with significantly abnormal EKG, multiple cardiac risk factors including, reported new ekg changes , htn, hld, dmii, smoking, and family history of brother who of [place] -as this is an elective surgery will postpone and will transfer for cardiac cath for definitive assessment of coronary anatomy and revascularization if needed -if normal coronary arteries, pt will likely go home today and is on schedule for surgery for wednesday for which there would be no cardiac contraindications at that point and pt may proceed -if revascularization is required then surgery will need to be postponed for a longer period of time -case discuss with pt and his and he is accepted to [facility] by Dr. 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
--- NOTE | 2017-03-12 15:26 | PN ---
Progress Note (short form) - Note Progress Note: pt well known to me from office In summary 61 year old man with a history of HTN, HLD, DMII, diverticulitis with perforation s/p surgical repair and colostomy, . Pt was in today for elective reversal of colostomy, prop when in OR on monitor noted by anesthesia to have significant changes in inferior leads thus surgery was cancelled. pt seen by me in rr with Dr. Heath/ Dr. Oleary Case discussed with them as well as Anesthesiologist. patient comfortable. denies chest pain or shortness of breath Anxiety present Temp 98.1 F 03/12/17 10:00 Pulse 60 03/12/17 11:15 Resp 17 03/12/17 11:15 BP 157/70 03/12/17 11:15 Pulse Ox 100 03/12/17 11:15 Intake & Output 03/11/17 03/12/17 03/12/17 23:59 11:59 23:59 Weight 150 lb Other: Height 5 ft 6 in Body Mass Index (BMI) 24.2 Weight Measurement Method Stated by Patient Active Medications Fentanyl (Sublimaze Injection -) 50 mcg IVPUSH [id number] PRN PRN Reason: PAIN-PACU ORDER X 4 DOSES ONLY Heparin Sodium (Porcine) (Heparin -) 5,000 unit SQ BID [facility] Lactated Ringer's (Lactated Ringers Solution) 1,000 mls @ 125 mls/hr IV ASDIR [facility] Ondansetron HCl (Zofran Injection) 4 mg IVPUSH Q6H PRN PRN Reason: NAUSEA AND/OR VOMITING Promethazine HCl (Phenergan Injection -) 12.5 mg IVPUSH Q6H PRN PRN Reason: NAUSEA-FOR RESCUE AFTER 15 MIN CBC, BMP 03/12/17 10:35 03/12/17 10:35 physical exam Alert and awake Neck--supple Lungs-clear CVS-S1-S2 regular Abdomen-soft Neuro-alert and awake Assessment and plan discussed in detail with surgeon/marketing forecaster as well as anesthesiologist We all agree that--- since it is elective surgery--- and there are new EKG changes--- patient should have cardiac First--and after that surgery can be done. Will discuss with patient's also. Plan is for cardiac catheter--likely transfer from here-Dr. Heath going to arrange that after talking to patient's . Will follow.
[2017-03-12 16:17] VITALS: BP 134/66; PULSE 55; TEMP 98.6
--- NOTE | 2017-03-13 17:16 | EKG ---
Test Reason : Blood Pressure : / mmHG Vent. Rate : 054 BPM Atrial Rate : 054 BPM P-R Int : 142 ms QRS Dur : 104 ms QT Int : 474 ms P-R-T Axes : 015 -05 101 degrees QTc Int : 449 ms SINUS BRADYCARDIA INCOMPLETE RIGHT BUNDLE BRANCH BLOCK LEFT VENTRICULAR HYPERTROPHY WITH REPOLARIZATION ABNORMALITY ABNORMAL ECG WHEN COMPARED WITH ECG OF 04-AUG-2016 10:47, NO SIGNIFICANT CHANGE WAS FOUND Confirmed by KATHY REYNOSO MD ([id number]) on 03/13/2017 5:16:26 PM Referred By: Ellen Oleary Confirmed By:KATHY REYNOSO MD
== END 2017-03-12 13:30 | disposition short-term general hospital (02) | DRG 395 ==
LOC: JSAMEDAYSX 05:04 → EDSTATUS 09:30
PROVIDERS: ADMIT Specialist; ATTEND Specialist
DX: Z43.3 Encounter for attention to colostomy (principal); R94.31 Abnormal electrocardiogram [ECG] [EKG]; Z53.09 Procedure and treatment not carried out because of other contraindication; E11.9 Type 2 diabetes mellitus without complications; I10 Essential (primary) hypertension; E78.5 Hyperlipidemia, unspecified; F17.210 Nicotine dependence, cigarettes, uncomplicated; Z79.84 Long term (current) use of oral hypoglycemic drugs
CPT/HCPCS: 36415; 80053; 82550; 82962; 84484; 85027; 93005; 93010; 94760

== ENCOUNTER 2017-03-15 08:41 | Inpatient (IN) | payer OTHER ==
--- NOTE | 2017-03-15 08:56 | PN ---
Progress Note (short form) - Note Progress Note: Cardiac cath done sunday 03/[address] [facility] showed non-obstructive CAD, no intervention required. At this time there is no cardiac contraindication to the planned procedure and pt may proceed without delay for additional cardiac work up. Pt should follow up in office within 2-3 weeks after surgery.
[2017-03-15 09:36] VITALS: BMI 24.2
[2017-03-15] MEDS ORDERED: fentaNYL CITRATE 250 MCG/5 ML VIAL ONE (10:34)
[2017-03-15] MEDS ORDERED: MIDAZOLAM HCL 2 MG/2 ML SINGLE DOSE VIAL ONE (10:34)
[2017-03-15] MEDS ORDERED: ROCURONIUM BROMIDE 50 MG/5 ML VIAL ONE ×2 (10:35→13:14)
[2017-03-15] MEDS ORDERED: ERTAPENEM SODIUM 1 GM VIAL IVPB ONE (11:30)
[2017-03-15] MEDS ORDERED: DEXAMETHASONE SOD PHOSPHATE 4 MG/1 ML VIAL ONE (11:33)
[2017-03-15] MEDS ORDERED: ERTAPENEM SODIUM 1 GM VIAL ONE (11:35)
[2017-03-15] MEDS ORDERED: GLYCOPYRROLATE 0.2 MG/1 ML VIAL ONE (11:37)
[2017-03-15] MEDS ORDERED: NEOSTIGMINE METHYLSULFATE 0.5 MG/ML - 10 ML MDV ONE (11:48)
[2017-03-15] MEDS ORDERED: ONDANSETRON 4 MG/2 ML VIAL IVPUSH PRN (12:20)
[2017-03-15] MEDS ORDERED: PROMETHAZINE HCL 25 MG/1 ML VIAL IVPB PRN (12:20)
[2017-03-15] MEDS ORDERED: DEXAMETHASONE SOD PHOSPHATE 4 MG/1 ML VIAL IVPUSH ONE ×2 (12:20→14:32)
[2017-03-15] MEDS ORDERED: HYDROmorphone *PCA* 10MG/50ML DISP.SYRIN PCA ONE (14:47)
[2017-03-15] MEDS ORDERED: HYDROmorphone HCL CARPU-JECT 2 MG/1 ML DISP.SYRIN ONE (14:47)
[2017-03-15] MEDS: HYDROmorphone HCL CARPU-JECT 1 MG/1 ML DISP.SYRIN IVPUSH PRN ×4 (14:50→15:20)
--- NOTE | 2017-03-15 15:05 | OP ---
Operative Note - Note: Operative Date: 03/15/17 Pre-Operative Diagnosis: S/P Sigmoid resection , with colostomy, (chase procedure). Operation: Reversal of colostomy, colocolostomy, extensive lysis of intestinal adhesions, , and repir of abdominal wound. Findings: Extensive intestinal adhesions of small bowel. Hand sewn anastamosis. Colostomy wound , skin left open, wound repaired with no. 1 prolene sutures and packing with iodoform.. Post-Operative Diagnosis: Same as Pre-op (Extensive intestinal adhesions of small bowel lysed , Colon also with adhesions, released.) Surgeon: Ellen Oleary Hematology Specialist: Evan Varner Anesthesiologist/MARINE PROPULSION TECHNICIAN: Baljit Swartz Anesthesia: General Specimens Removed: Colostomy , proximal and distal site. Estimated Blood Loss (mls): 150 Operative Report Dictated: Yes
[2017-03-15] MEDS ORDERED: LEVOFLOXACIN 500 MG IVPB 500 MG/100 ML BAG IVPB ONE ×2 (15:06→16:52)
[2017-03-15] MEDS ORDERED: METRONIDAZOLE 500 MG PREMIXED 500 MG/100 ML MG IVPB ONE ×2 (15:07→16:52)
[2017-03-15] MEDS ORDERED: SODIUM CHLORIDE 0.45%/POT 20 MEQ/1,000 ML INFUS.BAG IV SCH (15:15)
[2017-03-15] MEDS: LABETALOL HCL 5 MG/1 ML (100MG/20 ML VIAL) IVPUSH ONE ×4 (15:20→21:00)
[2017-03-15] MEDS: HYDROmorphone *PCA* 10MG/50ML DISP.SYRIN PCA SCH (16:17)
--- NOTE | 2017-03-15 17:39 | PN ---
Progress Note (short form) - Note Progress Note: pt seen in Recovery Room. s/p reversal of colostomy drowsy. Findings noted Discussed with Dr. Oleary Also. Vital Signs Temp 98.8 F 03/15/17 14:39 Pulse 68 03/15/17 16:45 Resp 16 03/15/17 16:45 BP 161/72 03/15/17 16:45 Pulse Ox 100 03/15/17 16:45 Intake & Output 03/14/17 03/15/17 03/15/17 23:59 11:59 23:59 Intake Total 1500 Balance 1500 Weight 150 lb Intake: IV 1500 Other: Height 5 ft 6 in Body Mass Index (BMI) 24.2 Weight Measurement Method Stated by Patient physical exam drowsy lungs- clear cvs- s1, s2 rrr abd - soft ext- no edema a/p s/p reversal of colostomy cad - s/p recent cath -- non obs cad -- monitor bp. will follow discussed with Dr. Oleary also.
--- NOTE | 2017-03-16 08:19 | OP ---
DATE OF OPERATION: 03/15/2017 PREOPERATIVE DIAGNOSIS: Status post sigmoid resection, Praveen procedure, with descending colostomy. POSTOPERATIVE DIAGNOSIS: Status post sigmoid resection, Praveen procedure, with descending colostomy, with extensive intestinal adhesions and adhesions of the large as well as small bowel. OPERATIVE PROCEDURE: Takedown of the colostomy, resection of 2 segments of the colon with colocolostomy, extensive lysis of adhesions, and repair of abdominal wall (reversal of colostomy and lysis of adhesions). SURGEON: Raisa Oleary MD ROLL LINE OPERATOR: Evan Varner MD ANESTHESIA: General anesthesia. ANESTHESIOLOGIST: Baljit Swartz MD OPERATIVE DESCRIPTION: This 61-year-old man who had Praveen procedure in July for perforated sigmoid diverticulitis was brought in for reversal of colostomy. Patient was scheduled for surgery 3 days earlier, but because of EKG changes underwent a cardiac evaluation and assessment and this was postponed until today. Patient had bowel prep and has maintained liquid diet. He was given a gram of antibiotic prior to the procedure. Patient was placed in lithotomy position. The abdomen was painted and draped. Time-out was called. He was given Invanz prior to the procedure. The colostomy was closed with running 2-0 silk sutures. Then, an incision was made around the colostomy in an elliptical fashion. This was carried through the skin and subcutaneous fat all the way to the anterior rectus sheath, the rectus, as well as the external oblique muscle, down through to the peritoneum. The colon was then freed from the abdominal wall circumferentially. The proximal colon was mobilized incising the lateral peritoneal reflection, lysing the adhesions. Colostomy was then mobilized all the way to the anterior abdominal cavity. The distal segment could not be mobilized and brought into the wound. The abdomen was therefore closed through a vertical midline incision excising the previous scar. There were extensive small bowel adhesions to the anterior abdominal wall as well as to the descending colon as well as to the distal rectum and rectosigmoid. This was carefully lysed with sharp and blunt dissection. The small bowel was then retracted cephalad with a lap pad. The 2 ends of the colon were then brought together. The proximal bowel at the site of the colostomy was resected. The distal closed segment of the rectosigmoid was also resected. An EEA anastomosis could not be done as the anastomosis was very proximal. Both segments of the colon were mobilized. They were placed against each other. The posterior layer was then approximated with interrupted 3-0 silk sutures in an interrupted fashion. These were seromuscular sutures. The anastomosis was then performed with 3-0 Vicryl sutures using [id number] continuous sutures on the posterior layer. this suture was then placed , anteriorly in a Hematite fashion. The anastomosis was adequate along 2 fingers by extending the stoma by incising on its antimesenteric side on both sides. Once the inner layer was closed with continuous 3-0 Vicryl sutures, a second layer of seromuscular silk suture with 3 -0 silk was obtained on the anterior wall. Anastomosis was then adequately performed. The mesentery was approximated with interrupted 3-0 silk sutures. The red rubber catheter was introduced into the rectum, and the bowel was distended. There was no air leak from the anastomosis. There was no other procedure. The lysis of the adhesions was adequate. The abdominal cavity was then thoroughly irrigated with normal saline. The colostomy site was then approximated with interrupted No. 1 Prolene suture after closing the peritoneum with 3-0 Vicryl sutures. The skin was left open, 3-0 Prolene sutures in a vertical mattress fashion were passed around it. However, the edges were not approximated. The wound was irrigated, and the wound was packed with 1-inch Iodoform gauze, and a sterile dressing was placed. The midline wound was then approximated with continuous No. 1 looped PDS sutures. The anastomosis was adequate. The skin was approximated loosely with interrupted kelsi. Sponge count and instrument count were correct. Estimated blood loss was less than 150 mL. Sterile dressing was placed. Patient tolerated the procedure well, was extubated, and sent to the recovery room in satisfactory and stable condition. Mandeep [id number] cc: Evan Varner MD [email or web address]
--- NOTE | 2017-03-16 10:30 | PN ---
Progress Note, Physician History of Present Illness: pod #1 comfortable pain controlled with community relations assistant alert and awake - Current Medication List Current Medications: Active Medications Hydromorphone HCl (Dilaudid Hot Top Liner Helper -) 10 mg HOME ECONOMIST HOME ECONOMIST MANNY PRN Reason: Protocol Stop: 03/22/17 12:20 Last Admin: 03/15/17 16:17 Dose: 10 mg Potassium Chloride/Sodium Chloride (1/2ns+20meq Kcl) 20 meq in 1,000 mls @ 100 mls/hr IV ASDIR MANNY Last Admin: 03/15/17 21:00 Dose: Not Given Ondansetron HCl (Zofran Injection) 4 mg IVPUSH Q4H PRN PRN Reason: NAUSEA AND/OR VOMITING Promethazine HCl (Phenergan Injection -) 12.5 mg IVPB Q6H PRN PRN Reason: NAUSEA AND/OR VOMITING - Objective Vital Signs: Vital Signs Temperature 98.2 F 03/16/17 06:00 Pulse Rate 68 03/16/17 06:00 Respiratory Rate 16 03/16/17 06:00 Blood Pressure 138/65 03/16/17 06:00 O2 Sat by Pulse Oximetry (%) 97 03/15/17 21:00 Constitutional: Yes: No Distress, Calm Eyes: Yes: Conjunctiva Clear Neck: Yes: Supple Cardiovascular: Yes: Regular Rate and Rhythm Respiratory: Yes: CTA Bilaterally Gastrointestinal: Yes: Soft, Other (quiet- dressing in place) Edema: No Neurological: Yes: Alert Psychiatric: Yes: Alert Problem List - Problems (2) CAD (coronary artery disease) Code(s): I25.10 - ATHSCL HEART DISEASE OF [place] CORONARY ARTERY W/O ANG PCTRS (3) Hypertension Code(s): I10 - ESSENTIAL (PRIMARY) HYPERTENSION Assessment/Plan pain control bp ok f/u labs npo for now will start bp meds when start eating will follow
--- NOTE | 2017-03-16 10:56 | PN ---
Progress Note, Physician - Current Medication List Current Medications: Active Medications Hydromorphone HCl (Dilaudid Acid Strength Inspector -) 10 mg STEEL SHOT HEADER OPERATOR STEEL SHOT HEADER OPERATOR MANNY PRN Reason: Protocol Stop: 03/22/17 12:20 Last Admin: 03/15/17 16:17 Dose: 10 mg Potassium Chloride/Sodium Chloride (1/2ns+20meq Kcl) 20 meq in 1,000 mls @ 100 mls/hr IV ASDIR MANNY Last Admin: 03/15/17 21:00 Dose: Not Given Ondansetron HCl (Zofran Injection) 4 mg IVPUSH Q4H PRN PRN Reason: NAUSEA AND/OR VOMITING Promethazine HCl (Phenergan Injection -) 12.5 mg IVPB Q6H PRN PRN Reason: NAUSEA AND/OR VOMITING - Objective Vital Signs: Vital Signs Temperature 98.2 F 03/16/17 06:00 Pulse Rate 68 03/16/17 06:00 Respiratory Rate 16 03/16/17 06:00 Blood Pressure 138/65 03/16/17 06:00 O2 Sat by Pulse Oximetry (%) 97 03/15/17 21:00 Assessment/Plan Surgery: Patient is alert and oriented. He has no complaints. NG drainage is minimal. Plan : out of bed , ambulate. Patient is informed of operative findings.
[2017-03-16 11:10] LABS: BASO % 0.4 % (0-2.0); EOS % 0.5 % (0-4.5); HEMATOCRIT 44.5 % (35.4-49); HEMOGLOBIN 14.7 GM/dL (11.7-16.9); LYMPH % 13.7 % (8-40); MCH 31.6 pg (25.7-33.7); MEAN CELL VOLUME 95.8 fl (80-96); MEAN PLT VOLUME 9.7 fl (7.5-11.1); MONO % 7.3 % (3.8-10.2); NEUT % 78.1 % (42.8-82.8); PLATELET COUNT 176 K/MM3 (134-434); RBC 4.64 M/mm3 (4.00-5.60); RDW 14.3 % (11.9-15.9); WHITE BLOOD COUNT 9.7 K/mm3 (4.0-10.0)
[2017-03-16] MEDS ORDERED: LEVOFLOXACIN 500 MG IVPB 500 MG/100 ML BAG IVPB ONE (11:15)
[2017-03-16 11:35] LABS: ALBUMIN 3.3 g/dl (3.4-5.0); ANION GAP 8 (8-16); BLOOD UREA NITROGEN 7 mg/dL (7-18); CALCIUM 8.1 mg/dL (8.5-10.1); CHLORIDE 104 mmol/L (98-107); CO2 27 mmol/L (21-32); CREATININE 0.6 mg/dL (0.7-1.3); GLUCOSE,RANDOM 109 mg/dL (74-106); POTASSIUM 4.2 mmol/L (3.5-5.1); SGOT/AST 13 U/L (15-37); SGPT/ALT 20 U/L (12-78); SODIUM 139 mmol/L (136-145)
[2017-03-16 11:37] LABS: ALK PHOS 44 U/L (45-117); BILIRUBIN,TOTAL 1.1 mg/dL (0.2-1.0); TOT PROT 6.2 g/dl (6.4-8.2)
--- NOTE | 2017-03-16 12:25 | PN ---
Progress Note (short form) - Note Progress Note: ANesthesia postop note and pain management follow up 61 y/o m s/p Ga for reversal of coostomy, diaudid loan servicing representative for postop pain management POD#1, vss, aaox3, ngt in place, pain well controlled wirh loan servicing representative, will continue loan servicing representative today No anesthesia complications.
[2017-03-16] MEDS: HYDROmorphone *PCA* 10MG/50ML DISP.SYRIN PCA SCH (12:47)
[2017-03-16] MEDS: METRONIDAZOLE 500 MG PREMIXED 500 MG/100 ML MG IVPB SCH (17:28)
[2017-03-16] MEDS: LOSARTAN POTASSIUM 50 MG TABLET (FP) PO SCH (22:51)
[2017-03-17] MEDS: METRONIDAZOLE 500 MG PREMIXED 500 MG/100 ML MG IVPB SCH ×3 (01:07→17:20)
[2017-03-17 08:27] LABS: BASO % 0.6 % (0-2.0); EOS % 1.2 % (0-4.5); HEMATOCRIT 44.3 % (35.4-49); HEMOGLOBIN 14.3 GM/dL (11.7-16.9); LYMPH % 11.9 % (8-40); MCH 31.1 pg (25.7-33.7); MCHC 32.2 g/dl (32.0-35.9); MEAN CELL VOLUME 96.6 fl (80-96); MEAN PLT VOLUME 10.4 fl (7.5-11.1); MONO % 8.2 % (3.8-10.2); NEUT % 78.1 % (42.8-82.8); PLATELET COUNT 166 K/MM3 (134-434); RBC 4.58 M/mm3 (4.00-5.60); RDW 14.3 % (11.9-15.9); WHITE BLOOD COUNT 11.5 K/mm3 (4.0-10.0)
[2017-03-17 08:34] LABS: ANION GAP 9 (8-16); BLOOD UREA NITROGEN 5 mg/dL (7-18); CALCIUM 8.4 mg/dL (8.5-10.1); CHLORIDE 100 mmol/L (98-107); CO2 30 mmol/L (21-32); CREATININE 0.4 mg/dL (0.7-1.3); GLUCOSE,RANDOM 90 mg/dL (74-106); SODIUM 139 mmol/L (136-145)
--- NOTE | 2017-03-17 10:40 | PN ---
Progress Note (short form) - Note Progress Note: comfortable started on clear liquids pain under control on explosives worker pump. Vital Signs Temp 98.8 F 03/17/17 06:00 Pulse 80 03/17/17 06:00 Resp 20 03/17/17 06:00 BP 145/70 03/17/17 06:00 Pulse Ox 95 03/16/17 21:00 Intake & Output 03/16/17 03/16/17 03/17/17 11:59 23:59 11:59 Intake Total 1050 120 280 Output Total 8080 732 0905 Balance -400 -280 -870 Intake: IV 1050 1/2NS+20MEQ KCL 20 meq In 1050 1,000 ml @ 100 mls/hr IV ASDIR MANNY Rx#: [id number] IVPB 280 Oral 0 120 Output: Urine 3902 088 8389 Void 3625 496 6189 Other: Voiding Method Urinal Urinal Bowel Movement No Active Medications Hydromorphone HCl (Dilaudid Shredding Machine Tender -) 10 mg CREDIT DEPARTMENT MANAGER CREDIT DEPARTMENT MANAGER MANNY PRN Reason: Protocol Stop: 03/22/17 12:20 Last Admin: 03/16/17 12:47 Dose: 10 mg Metronidazole (Flagyl 500mg Premixed Ivpb -) 500 mg in 100 mls @ 100 mls/hr IVPB Q8H-IV MANNY Last Admin: 03/17/17 09:49 Dose: 100 mls/hr Losartan Potassium (Cozaar -) 50 mg PO HS MANNY Last Admin: 03/16/17 22:51 Dose: 50 mg Ondansetron HCl (Zofran Injection) 4 mg IVPUSH Q4H PRN PRN Reason: NAUSEA AND/OR VOMITING Promethazine HCl (Phenergan Injection -) 12.5 mg IVPB Q6H PRN PRN Reason: NAUSEA AND/OR VOMITING CBC, BMP 03/17/17 06:50 03/17/17 06:50 -Physical Constitutional: Yes: No Distress, Calm Eyes: Yes: Conjunctiva Clear Neck: Yes: Supple Cardiovascular: Yes: Regular Rate and Rhythm Respiratory: Yes: CTA Bilaterally Gastrointestinal: Yes: Soft, Other (quiet- dressing in place)- changed today Edema: No Neurological: Yes: Alert Psychiatric: Yes: Alert Problem List - Problems (2) CAD (coronary artery disease) Code(s): I25.10 - ATHSCL HEART DISEASE OF [place] CORONARY ARTERY W/O ANG PCTRS (3) Hypertension Code(s): I10 - ESSENTIAL (PRIMARY) HYPERTENSION Assessment/Plan pain under control bp ok start on bp med will follow Problem List - Problems (2) CAD (coronary artery disease) Code(s): I25.10 - ATHSCL HEART DISEASE OF [place] CORONARY ARTERY W/O ANG PCTRS (3) Hypertension Code(s): I10 - ESSENTIAL (PRIMARY) HYPERTENSION
--- NOTE | 2017-03-17 10:41 | PN ---
Progress Note, Physician - Current Medication List Current Medications: Active Medications Hydromorphone HCl (Dilaudid Clinical Research Physician -) 10 mg HALF SOLE FITTER HALF SOLE FITTER MANNY PRN Reason: Protocol Stop: 03/22/17 12:20 Last Admin: 03/16/17 12:47 Dose: 10 mg Metronidazole (Flagyl 500mg Premixed Ivpb -) 500 mg in 100 mls @ 100 mls/hr IVPB Q8H-IV MANNY Last Admin: 03/17/17 09:49 Dose: 100 mls/hr Losartan Potassium (Cozaar -) 50 mg PO HS MANNY Last Admin: 03/16/17 22:51 Dose: 50 mg Ondansetron HCl (Zofran Injection) 4 mg IVPUSH Q4H PRN PRN Reason: NAUSEA AND/OR VOMITING Promethazine HCl (Phenergan Injection -) 12.5 mg IVPB Q6H PRN PRN Reason: NAUSEA AND/OR VOMITING - Objective Vital Signs: Vital Signs Temperature 98.8 F 03/17/17 06:00 Pulse Rate 80 03/17/17 06:00 Respiratory Rate 20 03/17/17 06:00 Blood Pressure 145/70 03/17/17 06:00 O2 Sat by Pulse Oximetry (%) 95 03/16/17 21:00 Labs: CBC, BMP 03/17/17 06:50 03/17/17 06:50 Assessment/Plan Surgery: Patient is awake, alert . he has no complaints. No flatus , no bowel movement yet. No nausea, no vomiting. Abdomen is soft , no distention, not tender. He has been on clear liquids, will continue. Dressing changed, wound irrigated, and lightly packed. No sign of infection. Has been on antibiotics, as there was some fecal contamination , [place] [id number]. Will monitor. DVT prophylaxis, ambulate.
[2017-03-17] MEDS: HYDROmorphone *PCA* 10MG/50ML DISP.SYRIN PCA SCH (11:52)
[2017-03-17] MEDS: HEPARIN NA (PORCINE) 5,000 UNITS/ML 1ML VIAL SQ SCH ×2 (12:00→23:01)
--- NOTE | 2017-03-17 14:13 | PN ---
Progress Note (short form) - Note Progress Note: Patient seen. Doing well on POD#2 after reversal colostomy under GETA. Dilaudid MANAGER RENTAL helping. Starting clears Today pt is c/o intermittent pain being succefully rxd MANAGER RENTAL No sig pruritis/sedation. Plan: cont present managment. Likely d/c vending service technician tomorrow if diet progressing without problems.
--- NOTE | 2017-03-17 15:06 | PATH ---
Surgical Pathology Report Patient Name: MADONNA WESLEY [facility]. Rec. #: [id number] /Age/Gender: 1955 (Age: 61) / M Account: [id number] Location: 4 SO PEDS/ADOL Taken: 03/15/2017 Received: 03/16/2017 Reported: 03/17/2017 Physicians: Raisa Oleary M.D. Specimen(s) Received A: SCAR TISSUE B: DISTAL SEGMENT SIGMOID COLON C: TISSUE OF PROXIMAL SEGMENT OF STOMA Clinical History Diverticulitis status post colostomy Final Diagnosis A. SKIN, SCAR, EXCISION: SKIN WITH DERMAL FIBROSIS CONSISTENT WITH SCAR. B. DISTAL SIGMOID COLON, EXCISION: SEGMENT OF COLON WITH PROMINENT LYMPHOID AGGREGATES. C. PROXIMAL COLON, SEGMENT OF STOMA, EXCISION: SEGMENT OF COLON AND PORTION OF SKIN CONSISTENT WITH STOMA. SURGICAL RESECTION MARGIN IS VIABLE. Electronically Signed Lisa Siegel M.D. Gross Description A. Received in formalin labeled "scar tissue," is a 7.5 x 1.4 cm brown, elliptical, unoriented portion of skin excised to a depth of 1.1 cm. The epidermal surface displays a central, linear, well-healed scar. Babcock Tester sections are submitted in one cassette. B. Received in formalin labeled "distal sigmoid colon," is a 2.5 x 1.5 x 1.0 cm portion of colon with abundant kelsi. No discrete lesions are identified. The kelsi are removed and a marketing development representative section is submitted in one cassette. C. Received in formalin labeled "proximal segment of stoma," is a 3.3 x 1.5 cm brown, ovoid portion of the skin with a central stoma with attached suture material. There is a 3 cm in length portion of bowel attached to the stoma. The bowel mucosa is unremarkable. Babcock Tester sections are submitted in 2 cassettes as follows: 1-section of stoma; 2-bowel mucosal margin. /03/16/201703/16/2017
[2017-03-17] MEDS: LOSARTAN POTASSIUM 50 MG TABLET (FP) PO SCH (23:01)
[2017-03-18] MEDS: METRONIDAZOLE 500 MG PREMIXED 500 MG/100 ML MG IVPB SCH ×2 (02:09→09:46)
[2017-03-18 07:37] LABS: HEMATOCRIT 43.7 % (35.4-49); HEMOGLOBIN 14.2 GM/dL (11.7-16.9); MCH 31.3 pg (25.7-33.7); MCHC 32.4 g/dl (32.0-35.9); MEAN CELL VOLUME 96.7 fl (80-96); MEAN PLT VOLUME 9.9 fl (7.5-11.1); PLATELET COUNT 170 K/MM3 (134-434); RBC 4.52 M/mm3 (4.00-5.60); RDW 14.1 % (11.9-15.9); WHITE BLOOD COUNT 11.5 K/mm3 (4.0-10.0)
[2017-03-18 08:04] LABS: ANION GAP 10 (8-16); BLOOD UREA NITROGEN 7 mg/dL (7-18); CALCIUM 8.1 mg/dL (8.5-10.1); CHLORIDE 101 mmol/L (98-107); CO2 27 mmol/L (21-32); GLUCOSE,RANDOM 102 mg/dL (74-106); POTASSIUM 3.7 mmol/L (3.5-5.1); SODIUM 138 mmol/L (136-145)
[2017-03-18 08:05] LABS: CREATININE 0.4 mg/dL (0.7-1.3)
[2017-03-18] MEDS: HEPARIN NA (PORCINE) 5,000 UNITS/ML 1ML VIAL SQ SCH ×2 (09:47→21:35)
--- NOTE | 2017-03-18 10:20 | PN ---
Progress Note, Physician - Current Medication List Current Medications: Active Medications Heparin Sodium (Porcine) (Heparin -) 5,000 unit SQ BID MANNY Last Admin: 03/18/17 09:47 Dose: 5,000 unit Hydromorphone HCl (Dilaudid Metallurgical Laboratory Assistant -) 10 mg NEUROPSYCHIATRIST NEUROPSYCHIATRIST MANNY PRN Reason: Protocol Stop: 03/22/17 12:20 Last Admin: 03/17/17 11:52 Dose: 10 mg Metronidazole (Flagyl 500mg Premixed Ivpb -) 500 mg in 100 mls @ 100 mls/hr IVPB Q8H-IV MANNY Last Admin: 03/18/17 09:46 Dose: 100 mls/hr Losartan Potassium (Cozaar -) 50 mg PO HS MANNY Last Admin: 03/17/17 23:01 Dose: 50 mg Ondansetron HCl (Zofran Injection) 4 mg IVPUSH Q4H PRN PRN Reason: NAUSEA AND/OR VOMITING Promethazine HCl (Phenergan Injection -) 12.5 mg IVPB Q6H PRN PRN Reason: NAUSEA AND/OR VOMITING - Objective Vital Signs: Vital Signs Temperature 97.9 F 03/18/17 06:00 Pulse Rate 87 03/18/17 06:00 Respiratory Rate 18 03/18/17 06:00 Blood Pressure 124/65 03/18/17 06:00 O2 Sat by Pulse Oximetry (%) 95 03/17/17 21:00 Labs: CBC, BMP 03/18/17 05:35 03/18/17 05:35 Assessment/Plan Surgery: P.O.Day #3. Patient is afebrile, C/O Crampy abdominal pain, No nausea, no vomiting, He says he has passed flatus. Abdomen is soft , not tnder, not distended. Wound is clean, without drainage, Dressing changed[place] [id number], same as yesteday. Will D/C antibiotics.
--- NOTE | 2017-03-18 10:44 | PN ---
Progress Note (short form) - Note Progress Note: comfortable still on home hospice aide pump pain ok Vital Signs Temp 97.9 F 03/18/17 06:00 Pulse 87 03/18/17 06:00 Resp 18 03/18/17 06:00 BP 124/65 03/18/17 06:00 Pulse Ox 95 03/17/17 21:00 Intake & Output 03/17/17 03/17/17 03/18/17 11:59 23:59 11:59 Intake Total 280 0 Output Total 1150 650 Balance -870 -650 Intake: IVPB 280 0 Output: Urine 1150 650 Void 1150 650 Other: Voiding Method Urinal Urinal Urinal # Unmeasured Voids Void 1 Bowel Movement No No Active Medications Heparin Sodium (Porcine) (Heparin -) 5,000 unit SQ BID MANNY Last Admin: 03/18/17 09:47 Dose: 5,000 unit Hydromorphone HCl (Dilaudid Wind Field Manager -) 10 mg FOOD AND NUTRITION SERVICES ASSISTANT FOOD AND NUTRITION SERVICES ASSISTANT MANNY PRN Reason: Protocol Stop: 03/22/17 12:20 Last Admin: 03/17/17 11:52 Dose: 10 mg Losartan Potassium (Cozaar -) 50 mg PO HS MANNY Last Admin: 03/17/17 23:01 Dose: 50 mg Ondansetron HCl (Zofran Injection) 4 mg IVPUSH Q4H PRN PRN Reason: NAUSEA AND/OR VOMITING Promethazine HCl (Phenergan Injection -) 12.5 mg IVPB Q6H PRN PRN Reason: NAUSEA AND/OR VOMITING CBC, BMP 03/18/17 05:35 03/18/17 05:35 Physical Constitutional: Yes: No Distress, Comfortable Eyes: Yes: Conjunctiva Clear Neck: Yes: Supple Cardiovascular: Yes: Regular Rate and Rhythm Respiratory: Yes: CTA Bilaterally Gastrointestinal: Yes: Soft, Other (quiet- dressing in place)- mild soaking + Edema: No Neurological: Yes: Alert Psychiatric: Yes: Alert Problem List - Problems (2) CAD (coronary artery disease) Code(s): I25.10 - ATHSCL HEART DISEASE OF [place] CORONARY ARTERY W/O ANG PCTRS (3) Hypertension Code(s): I10 - ESSENTIAL (PRIMARY) HYPERTENSION Assessment/Plan pod #3 pain under control bp ok advance diet as tolerated d/c home hospice aide ? oob - chair will follow Problem List - Problems (2) CAD (coronary artery disease) Code(s): I25.10 - ATHSCL HEART DISEASE OF [place] CORONARY ARTERY W/O ANG PCTRS (3) Hypertension Code(s): I10 - ESSENTIAL (PRIMARY) HYPERTENSION
[2017-03-18] MEDS: ACETAMINOPHEN 325 MG TABLET (FP) PO PRN ×2 (13:00→21:38)
--- NOTE | 2017-03-18 13:44 | PN ---
Progress Note (short form) - Note Progress Note: Anesthesia HAND CHAIN MAKER, follow up POD#3 s/p reversal of colostomy, Tolerating po. Ambulating. VSS. D/C HAND CHAIN MAKER. Can start po analgetics. signed off.
[2017-03-18] MEDS: LOSARTAN POTASSIUM 50 MG TABLET (FP) PO SCH (21:35)
[2017-03-19 06:41] LABS: BASO % 0.5 % (0-2.0); EOS % 5.4 % (0-4.5); HEMATOCRIT 43.5 % (35.4-49); HEMOGLOBIN 14.5 GM/dL (11.7-16.9); MCH 31.9 pg (25.7-33.7); MCHC 33.2 g/dl (32.0-35.9); MEAN PLT VOLUME 10.1 fl (7.5-11.1); MONO % 6.1 % (3.8-10.2); PLATELET COUNT 230 K/MM3 (134-434); RBC 4.53 M/mm3 (4.00-5.60); RDW 14.3 % (11.9-15.9); WHITE BLOOD COUNT 8.2 K/mm3 (4.0-10.0)
[2017-03-19 07:20] LABS: ANION GAP 12 (8-16); BLOOD UREA NITROGEN 10 mg/dL (7-18); CALCIUM 8.8 mg/dL (8.5-10.1); CHLORIDE 103 mmol/L (98-107); CO2 26 mmol/L (21-32); CREATININE 0.3 mg/dL (0.7-1.3); GLUCOSE,RANDOM 116 mg/dL (74-106); POTASSIUM 3.9 mmol/L (3.5-5.1); SODIUM 141 mmol/L (136-145)
[2017-03-19] MEDS ORDERED: PT OWN MED DRAWER 7, Y5N ONE (09:57)
[2017-03-19] MEDS: ACETAMINOPHEN 325 MG TABLET (FP) PO PRN ×2 (10:02→15:32)
--- NOTE | 2017-03-19 10:34 | DS ---
Physical Examination Vital Signs: Vital Signs Temperature 97.9 F 03/19/17 05:47 Pulse Rate 81 03/19/17 05:47 Respiratory Rate 18 03/19/17 05:47 Blood Pressure 154/73 03/19/17 05:47 O2 Sat by Pulse Oximetry (%) 95 03/18/17 21:00 Labs: CBC, BMP 03/19/17 05:35 03/19/17 05:35 Discharge Summary Reason For Visit: DIVERTICULITIS/S/P COLOSTOMY Current Active Problems CAD (coronary artery disease) (Acute) Colostomy care (Acute) - Instructions - Home Medications Comprehensive Discharge Medication List: Ambulatory Orders Losartan Potassium 50 mg PO HS 03/11/17 Simvastatin 40 mg PO HS 03/11/17 Acetaminophen [Tylenol .Regular Strength -] 650 mg PO Q8H PRN tablet 03/19/17 Metformin HCl 500 mg PO BID #60 tab 03/19/17 Oxycodone HCl [Roxicodone -] 5 mg PO Q8H PRN #20 tablet MDD 3 03/19/17
[2017-03-19] MEDS: HEPARIN NA (PORCINE) 5,000 UNITS/ML 1ML VIAL SQ SCH (10:47)
--- NOTE | 2017-03-19 10:49 | PN ---
Progress Note (short form) - Note Progress Note: having pain today Overall okay no fever or chills tolerating orally liquids Vital Signs Temp 97.9 F 03/19/17 05:47 Pulse 81 03/19/17 05:47 Resp 18 03/19/17 05:47 BP 154/73 03/19/17 05:47 Pulse Ox 95 03/18/17 21:00 Intake & Output 03/18/17 03/18/17 03/19/17 11:59 23:59 11:59 Intake Total 200 350 Balance 200 350 Intake: Oral 200 350 Other: Voiding Method Urinal Urinal Urinal # Unmeasured Voids Void 1 1 2 Bowel Movement No No Active Medications Acetaminophen (Tylenol -) 650 mg PO Q8H PRN PRN Reason: FEVER Last Admin: 03/19/17 10:02 Dose: 650 mg Heparin Sodium (Porcine) (Heparin -) 5,000 unit SQ BID [facility] Last Admin: 03/19/17 10:47 Dose: Not Given Losartan Potassium (Cozaar -) 50 mg PO HS [facility] Last Admin: 03/18/17 21:35 Dose: 50 mg Ondansetron HCl (Zofran Injection) 4 mg IVPUSH Q4H PRN PRN Reason: NAUSEA AND/OR VOMITING Oxycodone HCl (Roxicodone -) 5 mg PO Q8H PRN Promethazine HCl (Phenergan Injection -) 12.5 mg IVPB Q6H PRN PRN Reason: NAUSEA AND/OR VOMITING CBC, BMP 03/19/17 05:35 03/19/17 05:35 Physical Constitutional: Yes: No Distress, Comfortable Eyes: Yes: Conjunctiva Clear Neck: Yes: Supple Cardiovascular: Yes: Regular Rate and Rhythm Respiratory: Yes: CTA Bilaterally Gastrointestinal: Yes: Soft, Other (quiet- dressing in place)- mild soaking + Edema: No Neurological: Yes: Alert Psychiatric: Yes: Alert Assessment/Plan pod #4 pain control bp ok advance diet as tolerated off antibiotics oob - chair surgical follow-up Anticipate discharge tomorrow if stable will follow Problem List - Problems (2) CAD (coronary artery disease) Code(s): I25.10 - ATHSCL HEART DISEASE OF [place] CORONARY ARTERY W/O ANG PCTRS (3) Hypertension Code(s): I10 - ESSENTIAL (PRIMARY) HYPERTENSION
--- NOTE | 2017-03-19 13:58 | PN ---
Progress Note, Physician - Current Medication List Current Medications: Active Medications Acetaminophen (Tylenol -) 650 mg PO Q8H PRN PRN Reason: FEVER Last Admin: 03/19/17 10:02 Dose: 650 mg Heparin Sodium (Porcine) (Heparin -) 5,000 unit SQ BID [facility] Last Admin: 03/19/17 10:47 Dose: Not Given Losartan Potassium (Cozaar -) 50 mg PO HS [facility] Last Admin: 03/18/17 21:35 Dose: 50 mg Ondansetron HCl (Zofran Injection) 4 mg IVPUSH Q4H PRN PRN Reason: NAUSEA AND/OR VOMITING Oxycodone HCl (Roxicodone -) 5 mg PO Q8H PRN Promethazine HCl (Phenergan Injection -) 12.5 mg IVPB Q6H PRN PRN Reason: NAUSEA AND/OR VOMITING - Objective Vital Signs: Vital Signs Temperature 97.9 F 03/19/17 05:47 Pulse Rate 81 03/19/17 05:47 Respiratory Rate 18 03/19/17 05:47 Blood Pressure 154/73 03/19/17 05:47 O2 Sat by Pulse Oximetry (%) 95 03/18/17 21:00 Labs: CBC, BMP 03/19/17 05:35 03/19/17 05:35 Assessment/Plan Surgery: Patient is alert and oriented. He has no complaints. He has had a bowel movement with some blood in stool. He has tolerated diet. Abdomen is soft , not tender , not distended,. There hs been some oozing from the wound of blood. Heparin stopped, There is no sign of wound infection or hematoma. Abdominal wall is flat. WBC is normal. Colostomy site is clean and granulating.
[2017-03-19] MEDS: oxyCODONE HCL 5 MG TABLET PO PRN (20:05)
[2017-03-19] MEDS: LOSARTAN POTASSIUM 50 MG TABLET (FP) PO SCH (22:46)
[2017-03-20] MEDS: ACETAMINOPHEN 325 MG TABLET (FP) PO PRN ×2 (01:24→12:00)
[2017-03-20] MEDS: oxyCODONE HCL 5 MG TABLET PO PRN ×2 (07:55→16:19)
--- NOTE | 2017-03-20 11:06 | PN ---
Progress Note (short form) - Note Progress Note: pt reports pain last night says passing gas - no bm yet pain + dont want i/v pain meds afebrile off abx Vital Signs Temp 98.0 F 03/20/17 06:00 Pulse 79 03/20/17 06:00 Resp 16 03/20/17 08:45 BP 135/67 03/20/17 06:00 Pulse Ox 95 03/20/17 08:45 Intake & Output 03/19/17 03/19/17 03/20/17 11:59 23:59 11:59 Intake Total 350 400 Balance 350 400 Intake: Oral 350 400 Other: Voiding Method Urinal Urinal Urinal # Unmeasured Voids Void 2 1 1 Bowel Movement Yes Active Medications Acetaminophen (Tylenol -) 650 mg PO Q8H PRN PRN Reason: FEVER Last Admin: 03/20/17 01:24 Dose: 650 mg Losartan Potassium (Cozaar -) 50 mg PO HS MANNY Last Admin: 03/19/17 22:46 Dose: 50 mg Ondansetron HCl (Zofran Injection) 4 mg IVPUSH Q4H PRN PRN Reason: NAUSEA AND/OR VOMITING Oxycodone HCl (Roxicodone -) 5 mg PO Q8H PRN Last Admin: 03/20/17 07:55 Dose: 5 mg Promethazine HCl (Phenergan Injection -) 12.5 mg IVPB Q6H PRN PRN Reason: NAUSEA AND/OR VOMITING CBC, BMP 03/19/17 05:35 03/19/17 05:35 Physical Constitutional: Yes: No Distress, Eyes: Yes: Conjunctiva Clear Neck: Yes: Supple Cardiovascular: Yes: Regular Rate and Rhythm Respiratory: Yes: CTA Bilaterally Gastrointestinal: Yes: Soft, Other (quiet- dressing in place)- Edema: No Neurological: Yes: Alert Psychiatric: Yes: Alert Assessment/Plan pod #5 pain control bp ok advance diet as tolerated- tolerating liquids off antibiotics oob - chair surgical follow-up Anticipate discharge after bm likely tomorrow will follow Problem List - Problems (2) CAD (coronary artery disease) Code(s): I25.10 - ATHSCL HEART DISEASE OF [place] CORONARY ARTERY W/O ANG PCTRS (3) Hypertension Code(s): I10 - ESSENTIAL (PRIMARY) HYPERTENSION
--- NOTE | 2017-03-20 12:25 | PN ---
Progress Note, Physician - Current Medication List Current Medications: Active Medications Acetaminophen (Tylenol -) 650 mg PO Q8H PRN PRN Reason: FEVER Last Admin: 03/20/17 12:00 Dose: 650 mg Losartan Potassium (Cozaar -) 50 mg PO HS MANNY Last Admin: 03/19/17 22:46 Dose: 50 mg Ondansetron HCl (Zofran Injection) 4 mg IVPUSH Q4H PRN PRN Reason: NAUSEA AND/OR VOMITING Oxycodone HCl (Roxicodone -) 5 mg PO Q8H PRN Last Admin: 03/20/17 07:55 Dose: 5 mg Promethazine HCl (Phenergan Injection -) 12.5 mg IVPB Q6H PRN PRN Reason: NAUSEA AND/OR VOMITING - Objective Vital Signs: Vital Signs Temperature 98.0 F 03/20/17 06:00 Pulse Rate 79 03/20/17 06:00 Respiratory Rate 16 03/20/17 08:45 Blood Pressure 135/67 03/20/17 06:00 O2 Sat by Pulse Oximetry (%) 95 03/20/17 08:45 Labs: CBC, BMP 03/19/17 05:35 03/19/17 05:35 Assessment/Plan Surgery: Patient is alert, passing flatus. Abdomen is soft , Midline wound is clean , not bleeding. He has been passibg flatus. He has tolerated diet, Colostomy site wound is clean. The wound was irrigated. The nylon sutures that had been placed was approximated , and wound closed by loose approximation . WBC is normal. Ambulate, continue diet. ,
[2017-03-20] MEDS: LOSARTAN POTASSIUM 50 MG TABLET (FP) PO SCH (21:15)
[2017-03-20] MEDS ORDERED: ONDANSETRON 4 MG/2 ML VIAL IVPUSH PRN (22:28)
[2017-03-20] MEDS ORDERED: oxyCODONE HCL 5 MG TABLET PO PRN (22:28)
[2017-03-20] MEDS ORDERED: PROMETHAZINE HCL 25 MG/1 ML VIAL IVPB PRN (22:28)
[2017-03-20] MEDS ORDERED: ACETAMINOPHEN 325 MG TABLET (FP) PO PRN (22:28)
[2017-03-20] MEDS ORDERED: DEXAMETHASONE SOD PHOSPHATE 4 MG/1 ML VIAL IVPUSH ONE (22:45)
--- NOTE | 2017-03-20 23:58 | HOSP ---
Physical Examination Vital Signs: Vital Signs Temperature 98.9 F 03/20/17 21:09 Pulse Rate 69 03/20/17 21:09 Respiratory Rate 18 03/20/17 21:09 Blood Pressure 123/77 03/20/17 21:09 O2 Sat by Pulse Oximetry (%) 95 03/20/17 08:45 Labs: CBC, BMP 03/19/17 05:35 03/19/17 05:35 Hospitalist Encounter Assessment: Patient Aj Tovar had to be transferred from Tele to [facility] this evening at 7:30 pm. There was a very sick patient who needed a tele bed. Vitals, Charts, labs were reviewed, patient was stable to be transferred to [facility]. Case was discussed with Dr. Crowell, hence patient transferred. All the orders and medications has been transferred. No new medication ordered for this patient. Visit type - Emergency Visit Emergency Visit: Yes ED Registration Date: 03/15/17 Care time: The patient presented to the Emergency Department on the above date and was hospitalized for further evaluation of their emergent condition. - New Patient This patient is new to me today: Yes Date on this admission: 03/21/17 - Critical Care Critical Care patient: No
[2017-03-21] MEDS ORDERED: POLYETHYLENE GLYCOL 3350 119 GM BTL PO ONE (10:00)
[2017-03-21] MEDS: ACETAMINOPHEN 325 MG TABLET (FP) PO PRN ×3 (12:30→23:22)
--- NOTE | 2017-03-21 12:49 | PN ---
Progress Note (short form) - Note Progress Note: uncomfortable feels gassy/ constipated pain + afraid of taking opiods mild discomfort . low grade temp off abx Vital Signs Temp 100 F H 03/21/17 06:35 Pulse 78 03/21/17 06:35 Resp 18 03/21/17 06:35 BP 134/72 03/21/17 06:35 Pulse Ox 95 03/20/17 21:00 Intake & Output 03/20/17 03/21/17 03/21/17 23:59 11:59 23:59 Output Total 600 Balance -600 Output: Urine 600 Void 600 Other: Voiding Method Urinal Urinal Bowel Movement Yes No Active Medications Acetaminophen (Tylenol -) 650 mg PO Q4H PRN PRN Reason: PAIN LEVEL 1-5 Losartan Potassium (Cozaar -) 50 mg PO HS [facility] Ondansetron HCl (Zofran Injection) 4 mg IVPUSH Q4H PRN PRN Reason: NAUSEA AND/OR VOMITING Oxycodone HCl (Roxicodone -) 5 mg PO Q8H PRN Last Admin: 03/21/17 02:08 Dose: 5 mg Polyethylene Glycol (Miralax (For Daily Use) -) 17 gm PO BID MANNY Promethazine HCl (Phenergan Injection -) 12.5 mg IVPB Q6H PRN PRN Reason: NAUSEA AND/OR VOMITING CBC, BMP 03/19/17 05:35 03/19/17 05:35 Physical Constitutional: Yes: No Distress/ mild discomfort Eyes: Yes: Conjunctiva Clear Neck: Yes: Supple Cardiovascular: Yes: Regular Rate and Rhythm Respiratory: Yes: CTA Bilaterally Gastrointestinal: Yes: Soft, bs + mild tenderness + on deep palpation . no r/r surgical site claen Edema: No Neurological: Yes: Alert Psychiatric: Yes: Alert Assessment/Plan pod #6 pain control bp ok off antibiotics oob - chair surgical follow-up add miralax- had discussed with Dr. Oleary yesterday fua f/u labs will follow Problem List - Problems (2) CAD (coronary artery disease) Code(s): I25.10 - ATHSCL HEART DISEASE OF [place] CORONARY ARTERY W/O ANG PCTRS (3) Hypertension Code(s): I10 - ESSENTIAL (PRIMARY) HYPERTENSION
--- NOTE | 2017-03-21 13:41 | PN ---
Progress Note, Physician - Current Medication List Current Medications: Active Medications Acetaminophen (Tylenol -) 650 mg PO Q4H PRN PRN Reason: PAIN LEVEL 1-5 Last Admin: 03/21/17 12:30 Dose: 650 mg Losartan Potassium (Cozaar -) 50 mg PO HS [facility] Ondansetron HCl (Zofran Injection) 4 mg IVPUSH Q4H PRN PRN Reason: NAUSEA AND/OR VOMITING Oxycodone HCl (Roxicodone -) 5 mg PO Q8H PRN Last Admin: 03/21/17 02:08 Dose: 5 mg Polyethylene Glycol (Miralax (For Daily Use) -) 17 gm PO BID [facility] Promethazine HCl (Phenergan Injection -) 12.5 mg IVPB Q6H PRN PRN Reason: NAUSEA AND/OR VOMITING - Objective Vital Signs: Vital Signs Temperature 100 F H 03/21/17 06:35 Pulse Rate 78 03/21/17 06:35 Respiratory Rate 18 03/21/17 06:35 Blood Pressure 134/72 03/21/17 06:35 O2 Sat by Pulse Oximetry (%) 95 03/20/17 21:00 Labs: CBC, BMP 03/19/17 05:35 03/19/17 05:35 Assessment/Plan Surgery: Postop day no 5 Wounds are clean, no sign of infection. Abdomen is soft , not tender except at the incision site. No signof infection . Abdominal X-Ray: normal gas pattern. Air is seen in the sigmoid colon and rectum. Temp 100. Wbc is normal. Progress diet, ambulate. Discharge planning.
[2017-03-21] MEDS: POLYETHYLENE GLYCOL 3350 119 GM BTL PO SCH (21:13)
[2017-03-21] MEDS ORDERED: LOSARTAN POTASSIUM 50 MG TABLET (FP) PO SCH (22:00)
[2017-03-22 08:12] LABS: BASO % 0.6 % (0-2.0); EOS % 3.9 % (0-4.5); HEMATOCRIT 41.5 % (35.4-49); HEMOGLOBIN 13.4 GM/dL (11.7-16.9); LYMPH % 6.1 % (8-40); MCH 31.1 pg (25.7-33.7); MCHC 32.4 g/dl (32.0-35.9); MEAN CELL VOLUME 96.2 fl (80-96); MEAN PLT VOLUME 9.3 fl (7.5-11.1); MONO % 6.9 % (3.8-10.2); NEUT % 82.5 % (42.8-82.8); PLATELET COUNT 293 K/MM3 (134-434); RBC 4.31 M/mm3 (4.00-5.60); RDW 14.2 % (11.9-15.9); WHITE BLOOD COUNT 17.1 K/mm3 (4.0-10.0)
[2017-03-22 08:32] LABS: ALBUMIN 2.8 g/dl (3.4-5.0); ANION GAP 8 (8-16); BLOOD UREA NITROGEN 9 mg/dL (7-18); CALCIUM 8.5 mg/dL (8.5-10.1); CHLORIDE 99 mmol/L (98-107); CO2 30 mmol/L (21-32); GLUCOSE,RANDOM 93 mg/dL (74-106); SODIUM 137 mmol/L (136-145)
[2017-03-22 08:36] LABS: ALK PHOS 64 U/L (45-117); BILIRUBIN,TOTAL 0.6 mg/dL (0.2-1.0); CREATININE 0.4 mg/dL (0.7-1.3); SGOT/AST 33 U/L (15-37); SGPT/ALT 36 U/L (12-78); TOT PROT 6.6 g/dl (6.4-8.2)
--- NOTE | 2017-03-22 09:43 | PN ---
Progress Note (short form) - Note Progress Note: patient seen and examined feels better still having pain but better Having bowel movement now Afebrile Vital Signs Temp 97.9 F 03/22/17 09:05 Pulse 81 03/22/17 09:05 Resp 18 03/22/17 09:05 BP 142/65 03/22/17 09:05 Pulse Ox 97 03/21/17 21:00 Intake & Output 03/21/17 03/21/17 03/22/17 11:59 23:59 11:59 Intake Total 410 Output Total 600 Balance -600 410 Intake: IV 0 Right Hand #22 03/15 0 IVPB 0 Oral 410 Output: Urine 600 Void 600 Other: Voiding Method Urinal Toilet # Unmeasured Voids Void 1 Bowel Movement No Active Medications Acetaminophen (Tylenol -) 650 mg PO Q4H PRN PRN Reason: PAIN LEVEL 1-5 Last Admin: 03/21/17 23:22 Dose: 650 mg Losartan Potassium (Cozaar -) 50 mg PO HS [facility] Last Admin: 03/21/17 21:03 Dose: 50 mg Ondansetron HCl (Zofran Injection) 4 mg IVPUSH Q4H PRN PRN Reason: NAUSEA AND/OR VOMITING Oxycodone HCl (Roxicodone -) 5 mg PO Q8H PRN Last Admin: 03/21/17 02:08 Dose: 5 mg Polyethylene Glycol (Miralax (For Daily Use) -) 17 gm PO BID [facility] Last Admin: 03/21/17 21:13 Dose: 17 gm Promethazine HCl (Phenergan Injection -) 12.5 mg IVPB Q6H PRN PRN Reason: NAUSEA AND/OR VOMITING CBC, BMP 03/22/17 07:45 03/22/17 07:45 Physical Constitutional: Yes: No Distress/ comfortable Eyes: Yes: Conjunctiva Clear Neck: Yes: Supple Cardiovascular: Yes: Regular Rate and Rhythm Respiratory: Yes: CTA Bilaterally Gastrointestinal: Yes: Soft, bs + mild tenderness + on deep palpation . no r/r surgical site claen Edema: No Neurological: Yes: Alert Psychiatric: Yes: Alert Assessment/Plan pod #7 pain control--better bp ok off antibiotics oob - chair elevated WBC today Await surgical follow-up before discharge---Will discuss with Dr. Oleary. surgical follow-up fua--okay f/u labs will follow Problem List - Problems (2) CAD (coronary artery disease) Code(s): I25.10 - ATHSCL HEART DISEASE OF [place] CORONARY ARTERY W/O ANG PCTRS (3) Hypertension Code(s): I10 - ESSENTIAL (PRIMARY) HYPERTENSION
[2017-03-22] MEDS: POLYETHYLENE GLYCOL 3350 119 GM BTL PO SCH (10:20)
--- NOTE | 2017-03-22 15:35 | PN ---
Progress Note, Physician - Current Medication List Current Medications: Active Medications Acetaminophen (Tylenol -) 650 mg PO Q4H PRN PRN Reason: PAIN LEVEL 1-5 Last Admin: 03/21/17 23:22 Dose: 650 mg Losartan Potassium (Cozaar -) 50 mg PO HS [facility] Last Admin: 03/21/17 21:03 Dose: 50 mg Ondansetron HCl (Zofran Injection) 4 mg IVPUSH Q4H PRN PRN Reason: NAUSEA AND/OR VOMITING Oxycodone HCl (Roxicodone -) 5 mg PO Q8H PRN Last Admin: 03/21/17 02:08 Dose: 5 mg Polyethylene Glycol (Miralax (For Daily Use) -) 17 gm PO BID [facility] Last Admin: 03/22/17 10:20 Dose: Not Given Promethazine HCl (Phenergan Injection -) 12.5 mg IVPB Q6H PRN PRN Reason: NAUSEA AND/OR VOMITING - Objective Vital Signs: Vital Signs Temperature 97.9 F 03/22/17 09:05 Pulse Rate 81 03/22/17 09:05 Respiratory Rate 18 03/22/17 09:05 Blood Pressure 142/65 03/22/17 09:05 O2 Sat by Pulse Oximetry (%) 98 03/22/17 10:00 Labs: CBC, BMP 03/22/17 07:45 03/22/17 07:45 Assessment/Plan Surgery: patient is sfebrile. Abdpminal wound and colostomy site is clean , with no tenderness, no drainage. All midlinwe kelsi are removed. He has had 2 bowel movement with normal stools. He hasbeen tolerating diet. WBC elevated . No sign of infection. Discharge planning.
[2017-03-22] MEDS: ACETAMINOPHEN 325 MG TABLET (FP) PO PRN (15:43)
[2017-03-22 15:45] VITALS: BP 135/74; PULSE 79; TEMP 99.3
--- NOTE | 2017-03-22 15:48 | DS ---
Physical Examination Vital Signs: Vital Signs Temperature 97.9 F 03/22/17 09:05 Pulse Rate 81 03/22/17 09:05 Respiratory Rate 18 03/22/17 09:05 Blood Pressure 142/65 03/22/17 09:05 O2 Sat by Pulse Oximetry (%) 98 03/22/17 10:00 Findings/Remarks: See Today's Progress Note Labs: CBC, BMP 03/22/17 07:45 03/22/17 07:45 Discharge Summary Reason For Visit: DIVERTICULITIS/S/P COLOSTOMY Current Active Problems CAD (coronary artery disease) (Acute) Colostomy care (Acute) Hospital Course: patient admitted for reversal of colostomy did well Seen by surgeon today--cleared for discharge Surgical site is clean Elevated WBC but no sign of infection Okay to discharge off antibiotics as per surgeon I advised him to follow up in my office next week I also advised that if he develops fever or not feeling well--- to call me or Dr. Oleary. Medications reconciled Pain medications has been sent. I also looked into hcs today Discussed with nursing staff also. Condition: Improved - Instructions Diet, Activity, Other Instructions: Follow up with Dr. Dillard next week. Follow up with Dr. Oleary in 2 weeks. Referrals: Ellen Oleary MD [Staff Physician] - No Dillard MD [Staff Physician] - Disposition: HOME - Home Medications Comprehensive Discharge Medication List: Ambulatory Orders Losartan Potassium 50 mg PO HS 03/11/17 Simvastatin 40 mg PO HS 03/11/17 Acetaminophen [Tylenol .Regular Strength -] 650 mg PO Q8H PRN tablet 03/19/17 Metformin HCl 500 mg PO BID #60 tab 03/19/17 Oxycodone HCl [Roxicodone -] 5 mg PO Q8H PRN #20 tablet MDD 3 03/19/17 Polyethylene Glycol 3350 [Miralax 119 gm Btl -] 17 gm PO BID PRN #30 bottle
== END 2017-03-22 16:39 | disposition home or self-care (01) | DRG 331 ==
LOC: JSAMEDAYSX 08:41 → J4S 20:43 → JERBED 03-20 20:41 → J5S 03-20 20:44
PROVIDERS: ADMIT Internal Medicine; ATTEND Internal Medicine
PROC: 0WQF0ZZ Repair Abdominal Wall, Open Approach (ICD-10-PCS; 2017-03-15)
PROC: 0DNW0ZZ Release Peritoneum, Open Approach (ICD-10-PCS; 2017-03-15)
PROC: 0DBM0ZZ Excision of Descending Colon, Open Approach (ICD-10-PCS; principal; 2017-03-15 11:00)
DX: Z43.3 Encounter for attention to colostomy (principal); I25.10 Atherosclerotic heart disease of native coronary artery without angina pectoris; I10 Essential (primary) hypertension; K66.0 Peritoneal adhesions (postprocedural) (postinfection)
CPT/HCPCS: 36415; 74018-TC; 80048; 80053; 82962; 85025; 85027; 88302-TC; 88304-TC; 88307-TC; 94760; J1644